=== PATIENT | male | born 1945 | race American Indian/Alaskan Native ===

== ENCOUNTER → 2016-12-14 | Day surgery (SDC) | payer OTHER, MEDICARE ==
[2016-11-28 11:33] VITALS: Ht 179.1 cm; Wt 84.1 kg
[~2016-12-14] VITALS: Ht 179.1 cm; Wt 84.1 kg
[~2016-12-14] MED LIST: 500ML BSS 0.3ML EPI 1:1000PF IRRIG ONE; ACETAMINOPHEN 325 MG TAB PO PRN; AMVISC PLUS 0.8ML SYRINGE INT OCU ONE; ASPEC325 PO; ATOR10TA88 PO; ATROPINE SULFATE 0.1 MG/ML 5ML SYR IV PRN; AcetaZOLAMIDE 250 MG TAB PO SCH; BETAXOLOL HCL 0.25% OP SUSP PER DROP CHARGE OPR SCH; BRIMONIDINE TART 0.2% OP SOLN PER DROP CHARGE ONE; BSS FLUSH ONE; ENDOCOAT 0.85ML SYRINGE INT OCU ONE; EpHEDrine SULFATE INJ 50 MG/ML AMP IV PRN; EpINEphrine INJ 1MG/ML AMP 1 MG/ML AMP ONE; LACTATED RINGER'S 1000ML 500 ML IV SCH; LIDOCAINE 4% OP SOLN DROP CHARGE ONE; LIDOCAINE 4% OP SOLN DROP CHARGE OPR SCH; LIDOCAINE HCL 1% MPF 2 ML VIAL ONE; LOSA1TAB38 PO; MIDAZOLAM HCL 1 MG/ML 2ML VIAL ONE; MIX: 4ML BSS 1ML EPI 1:1000 PF INSTIL ONE; MOXIFLOXACIN OPH SOLN PER DROP CHARGE ONE; OCUCOAT 1 ML SOLN IO ONE; POVIDONE-IODINE OP SOLN 30 ML BTL ONE; PRED1SUS OPR; PRLSR20 PO; PROPARACAINE 0.5% OP SOLN PER DROP CHARGE OPR SCH; TOBRAMYCIN/DEXAMETHASONE OPH OINT PER APPLN CHARGE ONE
--- NOTE | 2016-12-14 08:33 | History & Physical Bridge - [place] ---
H&P Re-Evaluation Bridge Note: I have examined the patient, reviewed the History & Physical and in the interval since the performance of the History & Physical I have noted the following changes of clinical significance: No changes noted
[2016-12-14] MEDS: PHENYLEPHRINE HCL 2.5% OP SOLN PER DROP CHARGE OPR SCH ×2 (08:59→09:04)
[2016-12-14] MEDS: TROPICAMIDE 1% OP SOLN PER DROP CHARGE OPR SCH ×2 (09:00→09:05)
[2016-12-14] MEDS: CYCLOPENTOLATE HCL 1% OP SOLN PER DROP CHARGE OPR SCH ×2 (09:01→09:06)
[2016-12-14] MEDS: MOXIFLOXACIN OPH SOLN PER DROP CHARGE OPR SCH ×2 (09:02→09:12)
--- NOTE | 2016-12-14 10:03 | Discharge Instructions-SurgCtr ---
Discharge Instructions Visit Reason for Visit: Cataract Right Eye Discharge Discharge Diagnosis / Problem: lens implant right eye Discharge Goals Goal(s): Improve function Activity Recommendations Activity Limitations: resume your previous activity Lifting Limitations: no more than 10 pounds Exercise/Sports Limitations: gradually increase as tolerated May Resume Sexual Activity: when tolerated Shower/Bathe: tomorrow Driving or Machine Use: resume 1 day after discharge Anesthesia . Post Anesthesia Instructions: If you have had General Anesthesia or IV Sedation: * Do not drive today. * Resume driving when surgeon permits. * Do not make important decisions or sign legal documents today. * Call surgeon for: 1. Temperature elevations greater than 101 degrees F. 2. Uncontrollable pain. 3. Excessive bleeding. 4. Persistent nausea and vomiting. 5. Medication intolerance (nausea, vomiting or rash). * For nausea and vomiting use only clear liquids such as: tea, soda, bouillon until nausea subsides, then gradually increase diet as tolerated. * If you have any concerns or questions, call your surgeon's office. If physician is unavailable and it is an emergency, call 911 or go to the nearest emergency room. . Instructions / Follow-Up Instructions / Follow-Up ACTIVITY RECOMMENDATIONS: * Light activities. * Mild irritation and blurred vision are common for the first few days. * You may walk outside, read, watch television. * Redness around the white part of the eye is common. MEDICATIONS: Resume previous medications unless instructed otherwise by your surgeon. * Take white Diamox (Acetazolamide) tablet at 1 pm today. Start all eye drops at 1 pm today: * Eye drops (today and tomorrow): Prednisone - one drop in operative eye every 3 hours while awake Ofloxacin - one drop in operative eye every 3 hours while awake SPECIAL CARE INSTRUCTIONS: * Tape plastic shield over eye to sleep at night. Call your doctor at with any concerns or problems. FOLLOW UP VISIT: Follow-up with Dr Rosas at [place] office as scheduled. Diet Recommendations Home Diet: no limitations Procedures Procedures Performed: cataract extraction with lens implant Pending Studies Studies pending at discharge: no Medical Emergencies . Who to Call and When: Medical Emergencies: If at any time you feel your situation is an emergency, please call 911 immediately. . Non-Emergent Contact Non-Emergency issues call your: Test Pilot Call Non-Emergent contact if: your pain is not controlled [phone] . . "Provider Documentation" section prepared by Wilver Rosas.
--- NOTE | 2016-12-14 10:05 | [facility] Operative Report ---
Operative Report 1. PREOPERATIVE DIAGNOSIS: Senile nuclear cataract, right eye. 2. POSTOPERATIVE DIAGNOSIS: Senile nuclear cataract, right eye. 3. PROCEDURE: Phacoemulsification of right cataract with posterior chamber lens implant, type Bausch [employer] Lomb, model Hoya [id number], power +22.0 diopters. ANESTHESIA: Local standby. SURGEON: Dr. Rosas. COMPLICATIONS: None. OPERATING TIME: 10 minutes. 4. OPERATION AND FINDINGS: DESCRIPTION OF PROCEDURE: The right pupil was dilated. The anesthetic was administered using a topical technique. The right eye was prepped and draped. A speculum was placed. A clear corneal incision was formed. The chamber was filled with Amvisc Plus and Endocoat. Epinephrine solution was used. A paracentesis was placed. A capsulorrhexis was performed. The nucleus was hydrodissected. The lens was removed with phacoemulsification. Time was 5.35 seconds. The aspiration unit was used to remove the cortex. The capsule was filled with Amvisc Plus. The lens implant was folded and placed into the capsule. The incision was hydrated. The Amvisc was aspirated. The wound was secure. The chamber was deep. The pupil was round. TobraDex ointment and Vigamox solution were placed. The speculum was removed. The patient was returned to the Recovery Room in stable condition. I attest to the content of the Intraoperative Record and any orders documented therein. Any exceptions are noted below. The scribe's documentation has been prepared in my presence, under my direction and personally reviewed by me in its entirety. I confirm that the note above accurately reflects all work, treatment, procedures, and medical decision making performed by me. I personally scribed for Wilver Rosas M.D. (SUSAN) on 12/14/16 at 10:05. Electronically submitted by Rema Eugene ([email or web address]).
[2016-12-14 10:07] VITALS: TEMP 36.7
--- NOTE | 2016-12-14 10:24 | Anesthesia Progress Nt - [facility] ---
Anesthesia Post Op Note Date & Time Dec 14, 2016 at 10:25 Vital Signs Pain Intensity: 0 Vital Signs Past 12 Hours Date Time Temp Pulse Resp B/P Pulse Ox O2 Delivery O2 Flow Rate FiO2 12/14/16 10:07 36.7 64 16 125/74 97 Room Air 12/14/16 08:52 36.6 69 18 130/83 96 Room Air Notes Mental Status: alert / awake / arousable, participated in evaluation Pt Amnestic to Procedure: Yes Nausea / Vomiting: adequately controlled Pain: adequately controlled Airway Patency, RR, SpO2: stable & adequate BP & HR: stable & adequate Hydration State: stable & adequate Anesthetic Complications: no major complications apparent
[2016-12-14 10:35] VITALS: BP 116/80; PULSE 59; O2SAT 97
== END | disposition home or self-care (01) ==
LOC: X.SURG 08:46
PROVIDERS: ATTEND Specialist
DX: H25.11 Age-related nuclear cataract, right eye (principal); I10 Essential (primary) hypertension

== ENCOUNTER → 2016-12-27 | Outpatient (CLI) | payer OTHER, MEDICARE ==
[~2016-12-27] MED LIST changes: -500ML BSS 0.3ML EPI 1:1000PF IRRIG ONE; -ACETAMINOPHEN 325 MG TAB PO PRN; -AMVISC PLUS 0.8ML SYRINGE INT OCU ONE; -ATROPINE SULFATE 0.1 MG/ML 5ML SYR IV PRN; -AcetaZOLAMIDE 250 MG TAB PO SCH; -BETAXOLOL HCL 0.25% OP SUSP PER DROP CHARGE OPR SCH; -BRIMONIDINE TART 0.2% OP SOLN PER DROP CHARGE ONE; -BSS FLUSH ONE; -ENDOCOAT 0.85ML SYRINGE INT OCU ONE; -EpHEDrine SULFATE INJ 50 MG/ML AMP IV PRN; -EpINEphrine INJ 1MG/ML AMP 1 MG/ML AMP ONE; -LACTATED RINGER'S 1000ML 500 ML IV SCH; -LIDOCAINE 4% OP SOLN DROP CHARGE ONE; -LIDOCAINE 4% OP SOLN DROP CHARGE OPR SCH; -LIDOCAINE HCL 1% MPF 2 ML VIAL ONE; -MIDAZOLAM HCL 1 MG/ML 2ML VIAL ONE; -MIX: 4ML BSS 1ML EPI 1:1000 PF INSTIL ONE; -MOXIFLOXACIN OPH SOLN PER DROP CHARGE ONE; -OCUCOAT 1 ML SOLN IO ONE; -POVIDONE-IODINE OP SOLN 30 ML BTL ONE; -PROPARACAINE 0.5% OP SOLN PER DROP CHARGE OPR SCH; -TOBRAMYCIN/DEXAMETHASONE OPH OINT PER APPLN CHARGE ONE
[2016-12-27 17:53] LABS: BASO % 0.4 %; BASO ABS # 0.04 K/uL (0-0.2); COMPLETE YES; EOS % 2.1 %; HEMATOCRIT 41.1 % (42-52); IG% 0.1 %; LYMPH ABS # 2.06 K/uL (1.2-3.4); MEAN CELL VOLUME 90.9 fL (80-100); MEAN CORPUSCULAR HEMOGLOBIN 30.1 pg (25-34); MEAN CORPUSCULAR HGB CONC 33.1 g/dl (32-36); MEAN PLATELET VOLUME 10.6 fL (7.4-10.4); MONO % 10.1 %; NEUT % 64.3 %; PLATELET COUNT 234 K/uL (130-400); RED BLOOD COUNT 4.52 M/uL (4.7-6.1); WHITE BLOOD COUNT 8.97 K/uL (4.8-10.8)
== END | disposition home or self-care (01) ==
LOC: C.LABMFLN 10:08
PROVIDERS: ATTEND Family Medicine
DX: R51 Headache (principal)

== ENCOUNTER → 2016-12-28 | Day surgery (SDC) | payer OTHER, MEDICARE ==
[2016-12-27 07:47] VITALS: Ht 179.1 cm; Wt 84.1 kg
[~2016-12-28] VITALS: Ht 179.1 cm; Wt 84.1 kg
[~2016-12-28] MED LIST changes: +500ML BSS 0.3ML EPI 1:1000PF IRRIG ONE; +ACETAMINOPHEN 325 MG TAB PO PRN; +AMVISC PLUS 0.8ML SYRINGE INT OCU ONE; +ATROPINE SULFATE 0.1 MG/ML 5ML SYR IV PRN; +AcetaZOLAMIDE 250 MG TAB PO SCH; +BETAXOLOL HCL 0.25% OP SUSP PER DROP CHARGE OPL SCH; +BRIMONIDINE TART 0.2% OP SOLN PER DROP CHARGE ONE; +BSS FLUSH ONE; +ENDOCOAT 0.85ML SYRINGE INT OCU ONE; +EpHEDrine SULFATE INJ 50 MG/ML AMP IV PRN; +EpINEphrine INJ 1MG/ML AMP 1 MG/ML AMP ONE; +LACTATED RINGER'S 1000ML 500 ML IV SCH; +LIDOCAINE 4% OP SOLN DROP CHARGE ONE; +LIDOCAINE 4% OP SOLN DROP CHARGE OPL SCH; +LIDOCAINE HCL 1% MPF 2 ML VIAL ONE; +MIDAZOLAM HCL 1 MG/ML 2ML VIAL ONE; +MIX: 4ML BSS 1ML EPI 1:1000 PF INSTIL ONE; +MOXIFLOXACIN OPH SOLN PER DROP CHARGE ONE; +OCUCOAT 1 ML SOLN IO ONE; +POVIDONE-IODINE OP SOLN 30 ML BTL ONE; +PROPARACAINE 0.5% OP SOLN PER DROP CHARGE OPL SCH; +TOBRAMYCIN/DEXAMETHASONE OPH OINT PER APPLN CHARGE ONE
[2016-12-28] MEDS: PHENYLEPHRINE HCL 2.5% OP SOLN PER DROP CHARGE OPL SCH ×2 (11:24→11:29)
[2016-12-28] MEDS: TROPICAMIDE 1% OP SOLN PER DROP CHARGE OPL SCH ×2 (11:25→11:30)
[2016-12-28] MEDS: CYCLOPENTOLATE HCL 1% OP SOLN PER DROP CHARGE OPL SCH ×2 (11:26→11:31)
[2016-12-28] MEDS: MOXIFLOXACIN OPH SOLN PER DROP CHARGE OPL SCH ×2 (11:27→11:37)
--- NOTE | 2016-12-28 12:33 | Discharge Instructions-SurgCtr ---
Discharge Instructions Visit Reason for Visit: Cataract Left Eye Discharge Discharge Diagnosis / Problem: lens implant left eye Discharge Goals Goal(s): Improve function Activity Recommendations Activity Limitations: resume your previous activity Lifting Limitations: no more than 10 pounds Exercise/Sports Limitations: gradually increase as tolerated May Resume Sexual Activity: when tolerated Shower/Bathe: tomorrow Driving or Machine Use: resume 1 day after discharge Anesthesia . Post Anesthesia Instructions: If you have had General Anesthesia or IV Sedation: * Do not drive today. * Resume driving when surgeon permits. * Do not make important decisions or sign legal documents today. * Call surgeon for: 1. Temperature elevations greater than 101 degrees F. 2. Uncontrollable pain. 3. Excessive bleeding. 4. Persistent nausea and vomiting. 5. Medication intolerance (nausea, vomiting or rash). * For nausea and vomiting use only clear liquids such as: tea, soda, bouillon until nausea subsides, then gradually increase diet as tolerated. * If you have any concerns or questions, call your surgeon's office. If physician is unavailable and it is an emergency, call 911 or go to the nearest emergency room. . Instructions / Follow-Up Instructions / Follow-Up ACTIVITY RECOMMENDATIONS: * Light activities. * Mild irritation and blurred vision are common for the first few days. * You may walk outside, read, watch television. * Redness around the white part of the eye is common. MEDICATIONS: Resume previous medications unless instructed otherwise by your surgeon. * Take white Diamox (Acetazolamide) tablet at 3 pm today. Start all eye drops at 3 pm today: * Eye drops (today and tomorrow): Prednisone - one drop in operative eye every 3 hours while awake Ofloxacin - one drop in operative eye every 3 hours while awake SPECIAL CARE INSTRUCTIONS: * Tape plastic shield over eye to sleep at night. Call your doctor at with any concerns or problems. FOLLOW UP VISIT: Follow-up with Dr Rosas at [place] office as scheduled. Diet Recommendations Home Diet: no limitations Procedures Procedures Performed: cataract extraction with lens implant Pending Studies Studies pending at discharge: no Medical Emergencies . Who to Call and When: Medical Emergencies: If at any time you feel your situation is an emergency, please call 911 immediately. . Non-Emergent Contact Non-Emergency issues call your: [employer] Call Non-Emergent contact if: your pain is not controlled [phone] . . "Provider Documentation" section prepared by Wilver Rosas.
--- NOTE | 2016-12-28 12:34 | [facility] Operative Report ---
Operative Report Date of Service Dec 28, 2016. Operative Report 1. PREOPERATIVE DIAGNOSIS: Senile nuclear cataract, left eye. 2. POSTOPERATIVE DIAGNOSIS: Senile nuclear cataract, left eye. 3. PROCEDURE: Phacoemulsification of left cataract with posterior chamber lens implant, type Bausch & Lomb, model Hoya [id number], power +23.5 diopters. ANESTHESIA: Local standby. SURGEON: Dr. Rosas. COMPLICATIONS: None. OPERATING TIME: 10 minutes. 4. OPERATION AND FINDINGS: DESCRIPTION OF PROCEDURE: The left pupil was dilated. The anesthetic was administered using a topical technique. The left eye was prepped and draped. A speculum was placed. A clear corneal incision was formed. The chamber was filled with Amvisc Plus and Endocoat. Epinephrine solution was used. A paracentesis was placed. A capsulorrhexis was performed. The nucleus was hydrodissected. The lens was removed with phacoemulsification. Time was 5.70 seconds. The aspiration unit was used to remove the cortex. The capsule was filled with Amvisc Plus. The lens implant was folded and placed into the capsule. The incision was hydrated. The Amvisc was aspirated. The wound was secure. The chamber was deep. The pupil was round. TobraDex ointment and Vigamox solution were placed. The speculum was removed. The patient was returned to the Recovery Room in stable condition. I attest to the content of the Intraoperative Record and any orders documented therein. Any exceptions are noted below. The scribe's documentation has been prepared in my presence, under my direction and personally reviewed by me in its entirety. I confirm that the note above accurately reflects all work, treatment, procedures, and medical decision making performed by me. I personally scribed for Wilver Rosas M.D. (SUSAN) on 12/28/16 at 12:34. Electronically submitted by Rema Eugene ([facility]).
[2016-12-28 12:37] VITALS: TEMP 37
[2016-12-28 13:02] VITALS: BP 130/84; PULSE 63; O2SAT 95
--- NOTE | 2016-12-28 13:09 | Anesthesia Progress Nt - [facility] ---
Anesthesia Post Op Note Date & Time Dec 28, 2016 at 13:10 Vital Signs Pain Intensity: 0 Vital Signs Past 12 Hours Date Time Temp Pulse Resp B/P Pulse Ox O2 Delivery O2 Flow Rate FiO2 12/28/16 13:02 63 16 130/84 95 Room Air 12/28/16 12:37 37.0 68 16 120/73 95 Room Air 12/28/16 11:11 36.7 66 18 129/77 96 Room Air Notes Mental Status: alert / awake / arousable, participated in evaluation Pt Amnestic to Procedure: Yes Nausea / Vomiting: adequately controlled Pain: adequately controlled Airway Patency, RR, SpO2: stable & adequate BP & HR: stable & adequate Hydration State: stable & adequate Anesthetic Complications: no major complications apparent
== END | disposition home or self-care (01) ==
LOC: X.SURG 10:50
PROVIDERS: ATTEND Specialist
DX: H25.12 Age-related nuclear cataract, left eye (principal); I10 Essential (primary) hypertension; Z96.659 Presence of unspecified artificial knee joint; K21.9 Gastro-esophageal reflux disease without esophagitis; Z98.890 Other specified postprocedural states

== ENCOUNTER → 2017-09-20 | Outpatient (CLI) | payer OTHER, MEDICARE ==
[~2017-09-20] MED LIST changes: -500ML BSS 0.3ML EPI 1:1000PF IRRIG ONE; -ACETAMINOPHEN 325 MG TAB PO PRN; -AMVISC PLUS 0.8ML SYRINGE INT OCU ONE; +ATOR10TA82 PO; -ATOR10TA88 PO; -ATROPINE SULFATE 0.1 MG/ML 5ML SYR IV PRN; -AcetaZOLAMIDE 250 MG TAB PO SCH; -BETAXOLOL HCL 0.25% OP SUSP PER DROP CHARGE OPL SCH; -BRIMONIDINE TART 0.2% OP SOLN PER DROP CHARGE ONE; -BSS FLUSH ONE; -ENDOCOAT 0.85ML SYRINGE INT OCU ONE; -EpHEDrine SULFATE INJ 50 MG/ML AMP IV PRN; -EpINEphrine INJ 1MG/ML AMP 1 MG/ML AMP ONE; -LACTATED RINGER'S 1000ML 500 ML IV SCH; -LIDOCAINE 4% OP SOLN DROP CHARGE ONE; -LIDOCAINE 4% OP SOLN DROP CHARGE OPL SCH; -LIDOCAINE HCL 1% MPF 2 ML VIAL ONE; -MIDAZOLAM HCL 1 MG/ML 2ML VIAL ONE; -MIX: 4ML BSS 1ML EPI 1:1000 PF INSTIL ONE; -MOXIFLOXACIN OPH SOLN PER DROP CHARGE ONE; -OCUCOAT 1 ML SOLN IO ONE; -POVIDONE-IODINE OP SOLN 30 ML BTL ONE; -PROPARACAINE 0.5% OP SOLN PER DROP CHARGE OPL SCH; -TOBRAMYCIN/DEXAMETHASONE OPH OINT PER APPLN CHARGE ONE
[2017-09-20 12:41] LABS: BASO % 0.4 %; BASO ABS # 0.03 K/uL (0-0.2); COMPLETE YES; IG% 0.2 %; LYMPH % 27.1 %; LYMPH ABS # 2.17 K/uL (1.2-3.4); MEAN CELL VOLUME 93.6 fL (80-100); MEAN CORPUSCULAR HEMOGLOBIN 31.3 pg (25-34); MEAN CORPUSCULAR HGB CONC 33.4 g/dl (32-36); MONO % 11.5 %; NEUT % 56.8 %; PLATELET COUNT 233 K/uL (130-400); WHITE BLOOD COUNT 8.02 K/uL (4.8-10.8)
[2017-09-20 13:04] LABS: ALT/SGPT 18 U/L (12-78); AST/SGOT 15 U/L (15-37); BLOOD UREA NITROGEN 13 mg/dl (7-18); BUN/CREATININE RATIO 14.6 (10-20); CALCIUM 8.4 mg/dl (8.5-10.1); CARBON DIOXIDE 27 mmol/L (21-32); CHLORIDE 106 mmol/L (98-107); CREATININE 0.87 mg/dl (0.60-1.40); GLUCOSE 89 mg/dl (70-99); POTASSIUM 4.1 mmol/L (3.5-5.1); SODIUM 140 mmol/L (136-145)
[2017-09-20 13:15] LABS: ALKALINE PHOSPHATASE 63 U/L (45-117); CHOLESTEROL 182 mg/dl (0-200); HDL CHOLESTEROL 60 mg/dl; LDL CHOLESTEROL CALCULATED 107 mg/dl; TRIGLYCERIDES 74 mg/dl (0-150); VERY LOW DENSITY LIPOPROT CALC 15 mg/dl
== END | disposition home or self-care (01) ==
LOC: C.LABMFLN 08:07
PROVIDERS: ATTEND Family Medicine
DX: I10 Essential (primary) hypertension (principal); E78.5 Hyperlipidemia, unspecified

== ENCOUNTER 2017-11-28 13:21 | Observation (INO) | payer OTHER, MEDICARE ==
[~2017-11-28] VITALS: Ht 177.8 cm; Wt 79.5 kg
--- NOTE | 2017-11-28 13:47 | EMERGENCY ROOM VISIT NOTE ---
History Report prepared by Shira: Sudhir Alfaro Under the Supervision of: Dr. Mervin Arroyo M.D. First contact with patient: 13:32 Chief Complaint: STROKE SYMPTOMS Stated Complaint: MINI STROKE SYMPTOMS History of Present Illness The patient is a 72 year old male who presents to the Emergency Room with complaints of on and off paresthesias starting 3-4 days ago which became constant this morning and were present when he woke up around 0700. The patient states that he has tingling in his right arm, his lips, and his left foot. He additionally states that he feels dizzy like he is going to pass out. He reports that he has blurry vision in his right eye while reading, though after he looks away the vision goes back to normal. The patient denies any shortness of breath, chest pain, and headache. The patient has a history of TIAs and he states that he has hypertension and is on aspirin and losartan. No headache. Source of History: patient Onset: 3-4 days ago worsening today at 0700 Position: arm (right), foot (left), other (lips) Quality: tingling Timing: constant Associated Symptoms: No headache, No chest pain, No SOB Note: Associated symptoms: Blurry vision and dizziness Review of Systems See HPI for pertinent positives and negatives. A total of ten systems were reviewed and were otherwise negative. Past Medical & Surgical Medical Problems: (1) TIA (transient ischemic attack) Social History Smoking Status: Current Some Day Smoker Marital Status: Housing Status: lives with family Occupation Status: retired Current/Historical Medications Scheduled Losartan Potassium (Cozaar), 100 MG PO QAM Omeprazole (Prilosec), 20 MG PO QAM Miscellaneous Medications Aspirin (Aspirin Ec), 325 MG PO Allergies Coded Allergies: No Known Allergies (Verified , 11/28/17) Physical Exam Vital Signs Date Time Temp Pulse Resp B/P (MAP) Pulse Ox O2 Delivery O2 Flow Rate FiO2 11/28/17 14:37 73 16 135/85 97 Room Air 11/28/17 14:00 77 11/28/17 13:24 36.7 81 16 203/100 93 Room Air Physical Exam Physical Exam GENERAL: He is oriented to person, place, and time. He appears well-developed and well-nourished. He does not appear distressed. ____ HENT: Exam performed. Head: Normocephalic and atraumatic. Right Ear: External ear normal. No mastoid tenderness. Left Ear: External ear normal. No mastoid tenderness. Mouth/Throat: The oropharynx is clear and moist. No trismus in the jaw. No dental abscesses or uvula swelling. No oropharyngeal exudate or tonsillar abscesses. ____ EYES: Conjunctivae and EOM are normal. Pupils are equal, round, and reactive to light. Right eye exhibits no discharge. Left eye exhibits no discharge. No scleral icterus. ____ NECK: Normal range of motion. Neck supple. No JVD present. No spinous process tenderness present. No carotid bruit present. No rigidity. No tracheal deviation and normal range of motion present. No Brudzinski's sign and no Kernig 's sign noted. ____ CV: Normal rate, regular rhythm, normal heart sounds and intact distal pulses. There is no peripheral edema. Palpable radial pulses bue. ____ PULM/CHEST: Effort normal and breath sounds normal. No respiratory distress. No stridor. He has no wheezes. He has no rales. Chest Wall: He exhibits no tenderness. ____ ABD: The abdomen is soft. Bowel sounds are normal. He has no distension. No mass is present. There is no tenderness. There is no rebound, no guarding, no Youssef's sign and no tenderness at McBurney's point. Rovsig negative MUSC/SKEL: Normal range of motion. There is no peripheral edema, tenderness or deformity. LYMPH: No cervical adenopathy. ____ NEURO: NIHSS 0. He is alert and oriented to person, place, and time. He has normal strength. No cranial nerve deficit or sensory deficit. Coordination and gait normal. GCS eye subscore is 4. GCS verbal subscore is 5. GCS motor subscore is 6. cerbellar tests wnl. ____ SKIN: Skin is warm and dry. He is not diaphoretic. ____ PSYCH: He has a normal mood and affect. His behavior is normal. Judgment and thought content normal. ____ Medical Decision & Procedures ER Provider Diagnostic Interpretation: Radiology results as stated below per my review and radiologist interpretation: HEAD CT NONCONTRAST CT DOSE: 638.56 mGycm HISTORY: tingling near syncope on and off for 3 days TECHNIQUE: Multiaxial CT images of the head were performed without the use of intravenous contrast. Automated exposure control was utilized for this study. A dose lowering technique was utilized adhering to the principles of ALARA. Comparison: None. Findings: Near complete opacification of the right sphenoid sinus which appears to be chronic. The mastoid air cells are clear. The calvarium and skull base are intact. The ventricles and sulci are within normal limits. There is no mass, hematoma, midline shift, or acute infarct. Impression: No acute intracranial abnormality. Electronically signed by: Wisam Reid M.D. 11/28/2017 2:44 PM Dictated Date/Time: 11/28/2017 2:24 PM CHEST ONE VIEW PORTABLE HISTORY: NEAR SYNCOPE COMPARISON: Chest 12/08/2014. FINDINGS: No focal lung consolidations to suggest pneumonia. No evidence for pulmonary edema. The heart is normal in size. No pleural effusions. No pneumothorax. IMPRESSION: No acute process. Electronically signed by: Wisam Reid M.D. 11/28/2017 2:14 PM Dictated Date/Time: 11/28/2017 2:12 PM Laboratory Results 11/28/17 13:45 Red Blood Count 4.92, Mean Corpuscular Volume 93.7, Mean Corpuscular Hemoglobin 31.9, Mean Corpuscular Hemoglobin Concent 34.1, Mean Platelet Volume 9.6, Neutrophils (%) (Auto) 69.9, Lymphocytes (%) (Auto) 17.4, Monocytes (%) (Auto) 10.6, Eosinophils (%) (Auto) 1.4, Basophils (%) (Auto) 0.6, Neutrophils # (Auto ) 5.85, Lymphocytes # (Auto) 1.46, Monocytes # (Auto) 0.89, Eosinophils # (Auto ) 0.12, Basophils # (Auto) 0.05 11/28/17 13:45 Test 11/28/17 13:45 11/28/17 13:55 White Blood Count 8.38 K/uL (4.8-10.8) Red Blood Count 4.92 M/uL (4.7-6.1) Hemoglobin 15.7 g/dL (14.0-18.0) Hematocrit 46.1 % (42-52) Mean Corpuscular Volume 93.7 fL (80-100) Mean Corpuscular Hemoglobin 31.9 pg (25-34) Mean Corpuscular Hemoglobin Concent 34.1 g/dl (32-36) Platelet Count 267 K/uL (130-400) Mean Platelet Volume 9.6 fL (7.4-10.4) Neutrophils (%) (Auto) 69.9 % Lymphocytes (%) (Auto) 17.4 % Monocytes (%) (Auto) 10.6 % Eosinophils (%) (Auto) 1.4 % Basophils (%) (Auto) 0.6 % Neutrophils # (Auto) 5.85 K/uL (1.4-6.5) Lymphocytes # (Auto) 1.46 K/uL (1.2-3.4) Monocytes # (Auto) 0.89 K/uL (0.11-0.59) Eosinophils # (Auto) 0.12 K/uL (0-0.5) Basophils # (Auto) 0.05 K/uL (0-0.2) RDW Standard Deviation 50.1 fL (36.4-46.3) RDW Coefficient of Variation 14.7 % (11.5-14.5) Immature Granulocyte % (Auto) 0.1 % Immature Granulocyte # (Auto) 0.01 K/uL (0.00-0.02) Prothrombin Time 10.3 SECONDS (9.0-12.0) Prothromb Time International Ratio 1.0 (0.9-1.1) Activated Partial Thromboplast Time 24.3 SECONDS (21.0-31.0) Partial Thromboplastin Ratio 0.9 Anion Gap 7.0 mmol/L (3-11) Est Creatinine Clear Calc Drug Dose 76.0 ml/min Estimated GFR () 98.1 Estimated GFR (Non- 84.6 BUN/Creatinine Ratio 12.4 (10-20) Calcium Level 8.8 mg/dl (8.5-10.1) Total Bilirubin 0.6 mg/dl (0.2-1) Aspartate Amino Transf (AST/SGOT) 17 U/L (15-37) Alanine Aminotransferase (ALT/SGPT) 19 U/L (12-78) Alkaline Phosphatase 77 U/L (45-117) Troponin I < 0.015 ng/ml (0-0.045) Total Protein 7.6 gm/dl (6.4-8.2) Albumin 3.9 gm/dl (3.4-5.0) Globulin 3.7 gm/dl (2.5-4.0) Albumin/Globulin Ratio 1.0 (0.9-2) Laboratory results reviewed by me Medications Administered ECG Indication: other (stroke symptoms) Rate (beats per minute): 69 Rhythm: normal sinus Findings: no acute ischemic change, no ectopy, other ([place], QRS, and QTc intervals within normal limits. No ST elevation or depression) Change: Patient's EKG interpreted by me. ED Course 1335: The patient was evaluated in room A12. A complete history and physical exam was performed. No stroke alert called given the patient's symptoms have been present for the last 3-4 days. 1520: VSS. CT showed no acute infarct. Labs within normal limits, repeat NIHSS of 0. Patient will be admitted for TIA-like symptoms due to his paraesthesias and his on and off presentations of his symptoms. 1527: Discussed the patient's case with Dr. Alden QUILES Hospitalist. The patient will be evaluated for further treatment and disposition. Medical Decision No stroke alert called given the patient's symptoms have been present for the last 3-[address] showed no acute infarct. Labs within normal limits, repeat NIHSS of 0. Patient will be admitted for TIA-like symptoms due to his paraesthesias and his on and off presentations of his symptoms. Medication Reconcilliation Current Medication List: was personally reviewed by me Blood Pressure Screening Patient's blood pressure: Elevated blood pressure Monitored by the hospitalist Consults Time Called: 1520 Consulting Physician: Dr. Alden QUILES Hospitalist Returned Call: 1527 Discussed the patient's case with Dr. Alden QUILES Hospitalist. The patient will be evaluated for further treatment and disposition. Impression Primary Impression: TIA (transient ischemic attack) Scribe Attestation The scribe's documentation has been prepared under my direction and personally reviewed by me in its entirety. I confirm that the note above accurately reflects all work, treatment, procedures, and medical decision making performed by me. The chart was completed utilizing Dragon Speech voice recognition software. Grammatical errors, random word insertions, pronoun errors, and incomplete sentences are an occasional consequence of this system due to software limitations, ambient noise, and hardware issues. Any formal questions or concerns about the content, text, or information contained within the body of this dictation should be directly addressed to the physician for clarification. Departure Information Dispostion Being Evaluated By Hospitalist Referrals Antonieta Pruitt M.D. (PCP) Patient Instructions My [facility]
[2017-11-28 14:03] LABS: BASO % 0.6 %; BASO ABS # 0.05 K/uL (0-0.2); EOS % 1.4 %; EOS ABS # 0.12 K/uL (0-0.5); HEMATOCRIT 46.1 % (42-52); HEMOGLOBIN 15.7 g/dL (14.0-18.0); IG# 0.01 K/uL (0.00-0.02); LYMPH % 17.4 %; LYMPH ABS # 1.46 K/uL (1.2-3.4); MEAN CELL VOLUME 93.7 fL (80-100); MEAN CORPUSCULAR HEMOGLOBIN 31.9 pg (25-34); MEAN CORPUSCULAR HGB CONC 34.1 g/dl (32-36); MEAN PLATELET VOLUME 9.6 fL (7.4-10.4); MONO % 10.6 %; MONO ABS # 0.89 K/uL (0.11-0.59); NEUT % 69.9 %; NEUT ABS # 5.85 K/uL (1.4-6.5); PLATELET COUNT 267 K/uL (130-400); RED CELL DISTRIBUTION WIDTH CV 14.7 % (11.5-14.5); RED CELL DISTRIBUTION WIDTH SD 50.1 fL (36.4-46.3); WHITE BLOOD COUNT 8.38 K/uL (4.8-10.8)
[2017-11-28 14:09] LABS: PTT PATIENT 24.3 SECONDS (21.0-31.0)
--- NOTE | 2017-11-28 14:15 | DIAGNOSTIC IMAGING REPORT ---
CHEST ONE VIEW PORTABLE HISTORY: NEAR SYNCOPE COMPARISON: Chest 12/08/2014. FINDINGS: No focal lung consolidations to suggest pneumonia. No evidence for pulmonary edema. The heart is normal in size. No pleural effusions. No pneumothorax. IMPRESSION: No acute process. Electronically signed by: Wisam Reid M.D. 11/28/2017 2:14 PM Dictated Date/Time: 11/28/2017 2:12 PM
[2017-11-28 14:23] LABS: ALBUMIN 3.9 gm/dl (3.4-5.0); ALT/SGPT 19 U/L (12-78); BLOOD UREA NITROGEN 11 mg/dl (7-18); CALCIUM 8.8 mg/dl (8.5-10.1); CARBON DIOXIDE 25 mmol/L (21-32); CREATININE 0.88 mg/dl (0.60-1.40); GLUCOSE 90 mg/dl (70-99); POTASSIUM 4.1 mmol/L (3.5-5.1); SODIUM 141 mmol/L (136-145)
[2017-11-28 14:28] LABS: ALKALINE PHOSPHATASE 77 U/L (45-117); AST/SGOT 17 U/L (15-37); TOTAL PROTEIN 7.6 gm/dl (6.4-8.2)
--- NOTE | 2017-11-28 14:45 | DIAGNOSTIC IMAGING REPORT ---
HEAD CT NONCONTRAST CT DOSE: 638.56 mGycm HISTORY: tingling near syncope on and off for 3 days TECHNIQUE: Multiaxial CT images of the head were performed without the use of intravenous contrast. Automated exposure control was utilized for this study. A dose lowering technique was utilized adhering to the principles of ALARA. Comparison: None. Findings: Near complete opacification of the right sphenoid sinus which appears to be chronic. The mastoid air cells are clear. The calvarium and skull base are intact. The ventricles and sulci are within normal limits. There is no mass, hematoma, midline shift, or acute infarct. Impression: No acute intracranial abnormality. Electronically signed by: Wisam Reid M.D. 11/28/2017 2:44 PM Dictated Date/Time: 11/28/2017 2:24 PM
[2017-11-28] MEDS ORDERED: ASPI325T39 PO (14:53)
[2017-11-28] MEDS ORDERED: ACETAMINOPHEN 325 MG TAB PO PRN (15:45)
[2017-11-28] MEDS ORDERED: POLYETHYLENE (MIRALAX) 17 GM PACK PO PRN (15:45)
[2017-11-28] MEDS ORDERED: PHARMACIST DISCHARGE MED REC CONSULT PRN (15:45)
[2017-11-28] MEDS ORDERED: MAGNESIUM HYDROXIDE SUSP 30 ML UDC PO PRN (15:45)
[2017-11-28] MEDS ORDERED: ALUMINUM/MAGNESIUM/SIMETH (MAALOX MAX) 30 ML UDC PO PRN (15:45)
[2017-11-28] MEDS ORDERED: ONDANSETRON INJ 2 MG/ML 2 ML VIAL IV PRN (15:45)
[2017-11-28] MEDS ORDERED: IV FLUIDS COMPLETED PRN (16:15)
[2017-11-28] MEDS ORDERED: CLOPIDOGREL BISULFATE 75 MG TAB ONE (16:22)
--- NOTE | 2017-11-28 16:29 | History and Physical ---
History & Physical Date & Time of Service: Nov 28, 2017 at 15:56 Chief Complaint: Mini Stroke Symptoms Primary Care Physician: Antonieta Pruitt M.D. History of Present Illness Source: patient 72 y/o M Hx HTN, HPL, GERD, distant Hx of TIA. Pt had onset of intermittent L face numbness and a heavy feeling in his L arm. He states that he had identical symptoms when he was diagnosed with a TIA several years ago. He also c /o feeling intermittently dizzy. The pt denies RON, CP, SOB, N/V, fevers. On arrival to the ER, subjective signs are limited to L facial weakness. Past Medical/Surgical History 1) History of TIA 2) HTN 3) HPL - not treated currently due to statin intolerance 4) GERD Family History No history of CVA or heart disease in family Social History Smoking Status: Current Some Day Smoker Immunizations History of Influenza Vaccine: N/A History of Tetanus Vaccine?: Unknown History of Pneumococcal: Unknown History of Hepatitis B Vaccine: Unknown Multi-Drug Resistant Organisms History of MDRO: No Allergies Coded Allergies: No Known Allergies (Verified , 11/28/17) Home Medications Scheduled Losartan Potassium (Cozaar), 100 MG PO QAM Omeprazole (Prilosec), 20 MG PO QAM Miscellaneous Medications Aspirin (Aspirin Ec), 325 MG PO Review of Systems Constitutional: No fever, No chills, No sweats Eyes: No worsening of vision ENT: No hearing loss, No unusual epistaxis, No nasal symptoms Respiratory: No cough, No sputum, No wheezing Cardiovascular: No chest pain Abdomen: No pain, No nausea, No vomiting Musculoskeletal: No joint pain Genitourinary - Male: No hematuria, No dysuria Neurologic: + weakness, + numbness/tingling, + problem reported (facial paresthesias, R arm weakness or heaviness as noted - intemittent dizziness) Psychiatric: No depression symptoms Endocrine: No fatigue Hematologic / Lymphatic: No abnormal bleeding/bruising Integumentary: No rash Allergic / Immunologic: No environmental allergies Physical Exam Vital Signs Date Time Temp Pulse Resp B/P (MAP) Pulse Ox O2 Delivery O2 Flow Rate FiO2 11/28/17 14:37 73 16 135/85 97 Room Air 11/28/17 14:00 77 11/28/17 13:24 36.7 81 16 203/100 93 Room Air General Appearance: WD/WN, no apparent distress Head: normocephalic Eyes: normal inspection ENT: normal ENT inspection, pharynx normal Neck: supple, no JVD Respiratory/Chest: chest non-tender, lungs clear Cardiovascular: regular rate, rhythm, no edema, no gallop Abdomen/GI: normal bowel sounds, non tender, soft Back: normal inspection, no CVA tenderness Extremities/Musculoskelatal: normal inspection, no calf tenderness, normal capillary refill Neurologic/Psych: oriented x 3, + pertinent finding (There is L facial weakness limited to the lower face without periorbotal weakness. There is no pronator drift or motor weakness in the upper or lower extremities. There is no numbness or coordination deficits. ) Skin: normal color Diagnostics Laboratory Results Results Past 24 Hours Test 11/28/17 13:45 11/28/17 15:41 Range/Units White Blood Count 8.38 4.8-10.8 K/uL Red Blood Count 4.92 4.7-6.1 M/uL Hemoglobin 15.7 14.0-18.0 g/dL Hematocrit 46.1 42-52 % Mean Corpuscular Volume 93.7 80-100 fL Mean Corpuscular Hemoglobin 31.9 25-34 pg Mean Corpuscular Hemoglobin Concent 34.1 32-36 g/dl Platelet Count 267 130-400 K/uL Mean Platelet Volume 9.6 7.4-10.4 fL Neutrophils (%) (Auto) 69.9 % Lymphocytes (%) (Auto) 17.4 % Monocytes (%) (Auto) 10.6 % Eosinophils (%) (Auto) 1.4 % Basophils (%) (Auto) 0.6 % Neutrophils # (Auto) 5.85 1.4-6.5 K/uL Lymphocytes # (Auto) 1.46 1.2-3.4 K/uL Monocytes # (Auto) 0.89 0.11-0.59 K/uL Eosinophils # (Auto) 0.12 0-0.5 K/uL Basophils # (Auto) 0.05 0-0.2 K/uL RDW Standard Deviation 50.1 36.4-46.3 fL RDW Coefficient of Variation 14.7 11.5-14.5 % Immature Granulocyte % (Auto) 0.1 % Immature Granulocyte # (Auto) 0.01 0.00-0.02 K/uL Prothrombin Time 10.3 9.0-12.0 SECONDS Prothromb Time International Ratio 1.0 0.9-1.1 Activated Partial Thromboplast Time 24.3 21.0-31.0 SECONDS Partial Thromboplastin Ratio 0.9 Sodium Level 141 136-145 mmol/L Potassium Level 4.1 3.5-5.1 mmol/L Chloride Level 108 98-107 mmol/L Carbon Dioxide Level 25 21-32 mmol/L Anion Gap 7.0 3-11 mmol/L Blood Urea Nitrogen 11 7-18 mg/dl Creatinine 0.88 0.60-1.40 mg/dl Est Creatinine Clear Calc Drug Dose 76.0 ml/min Estimated GFR () 98.1 Estimated GFR (Non- 84.6 BUN/Creatinine Ratio 12.4 10-20 Random Glucose 90 70-99 mg/dl Calcium Level 8.8 8.5-10.1 mg/dl Total Bilirubin 0.6 0.2-1 mg/dl Aspartate Amino Transf (AST/SGOT) 17 15-37 U/L Alanine Aminotransferase (ALT/SGPT) 19 12-78 U/L Alkaline Phosphatase 77 45-117 U/L Troponin I < 0.015 0-0.045 ng/ml Total Protein 7.6 6.4-8.2 gm/dl Albumin 3.9 3.4-5.0 gm/dl Globulin 3.7 2.5-4.0 gm/dl Albumin/Globulin Ratio 1.0 0.9-[address] head: No acute findings Normal EKG Impression Assessment and Plan 72 y/o M Hx HTN, HPL, GERD, distant Hx of TIA. Pt had onset of intermittent L face numbness and a heavy feeling in his L arm. He states that he had identical symptoms when he was diagnosed with a TIA several years ago. He also c /o feeling intermittently dizzy. The pt denies RON, CP, SOB, N/V, fevers. On arrival to the ER, subjective signs are limited to L facial weakness. 1) TIA - pt is assigned to telemetry for monitoring and neurochecks. We will add Plavix to his current meds as L facial weakness is ongoing. He will be placed on a low dose of Lipitor - previously he has not tolerated statins which have induced cramping after a few weeks use. We have held his antihypertensive. As the distribution of his symptoms is unusual, we will check a Lyme titer. He does have a cabin in the [facility] and states that he had a Lyme test this past summer which was negative. An MRI/MRA are pending. 2) HTN - Losartan held 3) Gerd - cont PPi Full code - Lovenox prophylaxis - total time for this admit including review of labs, meds, imaging, EKG, records - discussion with pt, , ER attending - 35 min Level of Care Telemetry Resuscitation Status FULL RESUSCITATION VTE Prophylaxis VTE Risk Assessment Done? Y/N: Yes Risk Level: Low Given or contraindicated: Enoxaparin (Lovenox)SQ
[2017-11-28 16:59] VITALS: O2SAT 97; Ht 177.8 cm; Wt 79.5 kg
[2017-11-28] MEDS ORDERED: CLOPIDOGREL BISULFATE 75 MG TAB PO ONE (17:13)
[2017-11-28 19:54] VITALS: BP_SYST 87; PULSE 70; TEMP 37.1; O2SAT 94
[2017-11-28] MEDS ORDERED: ATORVASTATIN 20 MG TAB PO SCH (21:00)
[2017-11-28] MEDS ORDERED: ENOXAPARIN 40 MG/0.4 ML SYR SC SCH (21:00)
[2017-11-28] MEDS ORDERED: GADAVIST IV PRN (22:45)
--- NOTE | 2017-11-28 23:00 | DIAGNOSTIC IMAGING REPORT ---
MRI OF THE BRAIN WITHOUT CONTRAST CLINICAL HISTORY: Stroke. Tingling. Near syncopal episodes. COMPARISON STUDY: Head CT performed earlier today. TECHNIQUE: Utilizing a 1.5 Makenzie magnet and dedicated coil, multiplanar, multiecho imaging of the brain was performed without IV contrast. FINDINGS: There are no foci of restricted diffusion. No acute intracranial hemorrhage, midline shift or mass effect is present. Mild to moderate atrophy is noted. Ventricular system is normal. Basilar cisterns are patent. There are no extra-axial collections. Flow-voids for the major intracranial vessels are present. There is no intracranial mass on this unenhanced exam. Moderate white matter periventricular T2 hyperintensity suggests mild small vessel disease. Orbits and sinuses are unremarkable with exception of mild mucosal thickening of the right sphenoid sinus. IMPRESSION: 1. No acute intracranial findings. 2. Mild small vessel disease and atrophy. Electronically signed by: Chaitanya Trimble M.D. 11/28/2017 10:59 PM Dictated Date/Time: 11/28/2017 10:55 PM
--- NOTE | 2017-11-28 23:07 | DIAGNOSTIC IMAGING REPORT ---
MRA OF THE INTRACRANIAL CIRCULATION WITHOUT CONTRAST CLINICAL HISTORY: Stroke. Near syncopal episodes. COMPARISON STUDY: None. TECHNIQUE: Utilizing a 1.5 Makenzie magnet and 3-D [id number] technique, unenhanced MRA of the intracranial circulation was obtained. FINDINGS: The bilateral M1, M2, A1 and A2 segments are patent. There is no intracranial aneurysm or abrupt vessel cut off. Posterior circulation is intact. Left vertebral artery is dominant. There is no evidence for dissection within the major intracranial vessels. There is mild intracranial vascular irregularity likely due to atherosclerosis. IMPRESSION: Unremarkable MRA of the intracranial circulation for age. Electronically signed by: Chaitanya Trimble M.D. 11/28/2017 11:06 PM Dictated Date/Time: 11/28/2017 11:03 PM
--- NOTE | 2017-11-28 23:12 | DIAGNOSTIC IMAGING REPORT ---
MRA OF THE NECK WITH AND WITHOUT CONTRAST CLINICAL HISTORY: Stroke. Near syncopal episodes. COMPARISON STUDY: None. TECHNIQUE: Unenhanced and contrast-enhanced MRA of the neck was performed. Injection of 8 mL of Gadavist IV was uneventful. NASCET criteria were utilized to estimate the degree of carotid stenosis. FINDINGS: Post contrast images are slightly compromised due to difficulty with bolus timing. However, there is no significant stenosis within the bilateral common carotid, internal carotid or vertebral arteries. There is mild plaque within the proximal right internal carotid artery without hemodynamically significant stenosis. The left vertebral artery is dominant and patent. There is no evidence for dissection within the major vessels of the neck. IMPRESSION: 1. Study mildly compromised due to difficulty with bolus timing. However, no hemodynamically significant stenosis within the major vessels of the neck. 2. Mild atherosclerotic plaque within the proximal right internal carotid artery without significant stenosis. Electronically signed by: Chaitanya Trimble M.D. 11/28/2017 11:11 PM Dictated Date/Time: 11/28/2017 11:06 PM
[2017-11-28 23:17] VITALS: BP 129/82; PULSE 51; TEMP 36.6; O2SAT 95
[2017-11-29 03:42] VITALS: BP 147/87; PULSE 61; TEMP 36.4; O2SAT 98
[2017-11-29 05:52] LABS: BASO % 0.4 %; BASO ABS # 0.03 K/uL (0-0.2); EOS % 4.4 %; HEMATOCRIT 42.1 % (42-52); HEMOGLOBIN 14.2 g/dL (14.0-18.0); IG# 0.01 K/uL (0.00-0.02); LYMPH % 31.9 %; LYMPH ABS # 2.16 K/uL (1.2-3.4); MEAN CELL VOLUME 94.2 fL (80-100); MEAN CORPUSCULAR HEMOGLOBIN 31.8 pg (25-34); MEAN CORPUSCULAR HGB CONC 33.7 g/dl (32-36); MEAN PLATELET VOLUME 9.3 fL (7.4-10.4); MONO % 11.1 %; MONO ABS # 0.75 K/uL (0.11-0.59); NEUT % 52.1 %; NEUT ABS # 3.53 K/uL (1.4-6.5); PLATELET COUNT 217 K/uL (130-400); RED CELL DISTRIBUTION WIDTH CV 14.9 % (11.5-14.5); RED CELL DISTRIBUTION WIDTH SD 51.2 fL (36.4-46.3); WHITE BLOOD COUNT 6.78 K/uL (4.8-10.8)
[2017-11-29 06:27] LABS: CALCIUM 8.3 mg/dl (8.5-10.1); CREATININE 0.85 mg/dl (0.60-1.40)
[2017-11-29 07:01] LABS: HEMOGLOBIN A1C 5.4 % (4.5-5.6)
[2017-11-29 07:05] VITALS: BP 142/85; PULSE 59; TEMP 36.5; O2SAT 95
[2017-11-29 08:30] VITALS: O2SAT 95
[2017-11-29] MEDS ORDERED: ASPIRIN 81 MG ECTAB PO SCH (09:00)
[2017-11-29] MEDS ORDERED: PANTOprazole SOD 40 MG TAB PO SCH (09:00)
[2017-11-29] MEDS ORDERED: CLOPIDOGREL BISULFATE 75 MG TAB PO SCH (09:00)
--- NOTE | 2017-11-29 10:50 | Discharge Instructions ---
Discharge Instructions Date of Service Nov 29, 2017. Admission Reason for Admission: Paresthesias of Left face and foot Discharge Discharge Diagnosis / Problem: Paresthesias of left face and foot-NOT TIA or CVA Discharge Goals Goal(s): Improve disease control, Diagnostic testing, Therapeutic intervention Activity Recommendations Activity Limitations: resume your previous activity Lifting Limitations: none Exercise/Sports Limitations: none Shower/Bathe: no limitations Driving or Machine Use: no limitations . Instructions / Follow-Up Instructions / Follow-Up You were admitted for numbness of the left side of your face and left foot. This is partially resolved, but all of your testing shows that you DID NOT have a stroke. This is NOT a TIA (mini stroke) either. You may have Lyme disease and the test for this is still pending at the time of discharge-this should be followed up on by your PCP after discharge. Please continue all the same medications at home as before. Current Hospital Diet Patient's current hospital diet: AHA Diet (Heart Healthy) Discharge Diet Recommended Diet: AHA Diet (Heart Healthy) Procedures Procedures Performed: MRI Brain MRA Head and Neck Chest xray Head CT Pending Studies Studies pending at discharge: yes List of pending studies: Lyme Disease titer B12 level Laboratory Results Hemoglobin A1c Test 11/28/17 13:55 Range/Units Estimated Average Glucose 108 mg/dl Hemoglobin A1c 5.4 4.5-5.6 % Lipid Panel Test 11/29/17 05:19 Range/Units Triglycerides Level 103 0-150 mg/dl Cholesterol Level 164 0-200 mg/dl HDL Cholesterol 46 mg/dl Cholesterol/HDL Ratio 3.6 LDL Cholesterol, Calculated 97 mg/dl Medical Emergencies . Who to Call and When: Medical Emergencies: If at any time you feel your situation is an emergency, please call 911 immediately. . Non-Emergent Contact Non-Emergency issues call your: Primary Care Provider Call Non-Emergent contact if: you have a fever, temperature is above 100.5, you have any medication questions your symptoms worsen, or for any other acute concerns. . . "Provider Documentation" section prepared by Susanne Cardona. . VTE Core Measure Inpt VTE Proph given/why not?: Enoxaparin (Lovenox)SQ
--- NOTE | 2017-11-29 12:22 | Neurology Consultation ---
Neurology Consultation Date of Consultation: Nov 29, 2017. Attending Physician: Susanne Cardona MD Primary Care Physician: Antonieta Pruitt M.D. Reason for Consultation: Consultation for TIA/strokelike symptoms History of Present Illness Source: patient, hospital records This is a 72-year-old male who presents due to week of left-sided facial tingling. He reports that yesterday it got very severe. He reports that it's been intermittent over the last week. He is also noted intermittent left foot numbness in association and right arm tingling/pain. He denies any weakness. Denies any sudden visual changes. Denies any trouble with speech or swallowing. He also felt mildly lightheaded intermittently over the last week. He denied any neck symptoms or neck pain. Denies any headaches or history of migraine headaches. Denies any issues with his gait or walking. Denies any illnesses or fevers. Denies any history of seizures. Denies any major head injuries or concussions. No loss of consciousness. Patient reports a history of a similar event 18 years ago which she was seen at [facility] and was diagnosed with possible TIA. He reports that it occurred after an extremely stressful event at work. He reports that he had similar tingling of the left side of his face and a feeling of his right arm not being right. Patient has been taking a daily aspirin since then. Patient has noted intermittent right eye blurriness for the last 2 weeks as well and has an upcoming ophthalmology appointment. He reports baseline decreased hearing with hearing aids. Total cholesterol 164, LDL 97, HDL 46, triglycerides 103. Hemoglobin A1c 5.4 MRI of the brain report and images were reviewed by myself and completely normal. There was no signs of past strokes or small vessel ischemic disease. Brain overall appeared very healthy for age. MRA of the head and neck was unremarkable. Mild atherosclerosis The patient reports that he is mostly back to his baseline this morning but still reports some tingling around his lips bilaterally. Past Medical/Surgical History Hypertension, dyslipidemia, lumbar stenosis status post lumbar fusion Family History Father with ALS Social History Patient is normally independent in his activities of daily living. Marital Status: Housing Status: lives with family Occupation Status: retired Allergies Coded Allergies: No Known Allergies (Verified , 11/28/17) Current Inpatient Medications Current Inpatient Medications Medications (Trade) Dose Ordered Sig/Zeenat Route Start Time Stop Time Status Last Admin Dose Admin Pantoprazole Sodium (Protonix Tab) 40 mg QAM PO 11/29/17 09:00 12/29/17 08:59 11/29/17 09:03 40 MG Atorvastatin Calcium (Lipitor Tab) 10 mg HS PO 11/28/17 21:00 12/28/17 20:59 11/28/17 22:35 10 MG Aspirin (Ecotrin Tab) 81 mg QAM PO 11/29/17 09:00 12/29/17 08:59 11/29/17 09:02 81 MG Clopidogrel Bisulfate (plAVix TAB) 75 mg QAM PO 11/29/17 09:00 12/29/17 08:59 11/29/17 09:03 75 MG Enoxaparin Sodium (Lovenox Inj) 40 mg Q24H SC 11/28/17 21:00 12/28/17 20:59 11/28/17 22:36 40 MG Acetaminophen (Tylenol Tab) 650 mg Q4H PRN PO 11/28/17 15:45 12/28/17 15:44 Al Hydrox/Mg Hydrox/Simethicone (Maalox Max Susp) 15 ml Q4H PRN PO 11/28/17 15:45 12/28/17 15:44 Magnesium Hydroxide (Milk Of Magnesia Susp) 30 ml Q12H PRN PO 11/28/17 15:45 12/28/17 15:44 Ondansetron HCl (Zofran Inj) 4 mg Q6H PRN IV 11/28/17 15:45 12/28/17 15:44 Polyethylene (Miralax Powder Packet) 17 gm DAILY PRN PO 11/28/17 15:45 12/28/17 15:44 Miscellaneous (Iv Fluids Completed) 1 ea PRN PRN N/A 11/28/17 16:15 11/28/18 16:14 Gadobutrol (Gadavist) 8 mmol UD PRN IV 11/28/17 22:45 12/02/17 22:44 Review of Systems Complete review of systems otherwise negative except for the above noted in history of present illness Physical Exam Vital Signs (Past 24 Hrs): Date Time Temp Pulse Resp B/P (MAP) Pulse Ox O2 Delivery O2 Flow Rate FiO2 11/29/17 08:30 95 Room Air 11/29/17 07:05 36.5 59 20 142/85 (104) 95 Room Air 11/29/17 04:00 Room Air 11/29/17 03:42 36.4 61 18 147/87 (107) 98 Room Air 11/29/17 00:00 Room Air 11/28/17 23:17 36.6 51 18 129/82 (98) 95 Room Air 11/28/17 20:22 Room Air 11/28/17 19:54 37.1 70 20 87/ (29) 94 Room Air 11/28/17 16:59 69 18 151/88 97 Room Air 11/28/17 16:59 97 Room Air 11/28/17 16:04 66 18 139/99 97 Room Air 11/28/17 14:37 73 16 135/85 97 Room Air 11/28/17 14:00 77 11/28/17 13:24 36.7 81 16 203/100 93 Room Air Gen.: Patient is alert and sitting in bed, in no acute distress. HEENT: Normocephalic /atraumatic, no scleral icterus Heart: Regular rate and rhythm Extremities: No gross deformities or rashes noted Neurological examination: Mental status: Patient is alert and oriented x3. Attention and concentration normal for the situation. Good fund of knowledge. Remote and recent memory intact. Speech is fluent without any dysarthria or aphasia noted Cranial nerve: Funduscopic examination was unremarkable. No papilledema. Pupils equally round and reactive to light. Extraocular muscles intact without nystagmus. No facial asymmetry noted. Facial sensation intact. Tongue is midline. Good palatal elevation. Good shoulder shrug bilaterally. Hearing grossly intact to voice. Strength: 5/5 both proximal and distally in all extremities. There is no arm drift. Tone is normal. Sensation: Grossly intact to light touch in all extremities. Deep tendon reflexes: +1 in bilateral biceps, brachioradialis and patellar. Toes were downgoing to plantar stimulation Coordination: Patient had good finger to nose without dysmetria Station within the bed was normal Laboratory Results Past 24 Hours: 11/29/17 05:19 Red Blood Count 4.47, Mean Corpuscular Volume 94.2, Mean Corpuscular Hemoglobin 31.8, Mean Corpuscular Hemoglobin Concent 33.7, Mean Platelet Volume 9.3, Neutrophils (%) (Auto) 52.1, Lymphocytes (%) (Auto) 31.9, Monocytes (%) (Auto) 11.1, Eosinophils (%) (Auto) 4.4, Basophils (%) (Auto) 0.4, Neutrophils # (Auto ) 3.53, Lymphocytes # (Auto) 2.16, Monocytes # (Auto) 0.75, Eosinophils # (Auto ) 0.30, Basophils # (Auto) 0.03 11/29/17 05:19 Test 11/28/17 13:45 11/28/17 13:55 11/28/17 14:05 11/28/17 18:40 Prothrombin Time 10.3 SECONDS (9.0-12.0) Prothromb Time International Ratio 1.0 (0.9-1.1) Activated Partial Thromboplast Time 24.3 SECONDS (21.0-31.0) Partial Thromboplastin Ratio 0.9 Total Bilirubin 0.6 mg/dl (0.2-1) Aspartate Amino Transf (AST/SGOT) 17 U/L (15-37) Alanine Aminotransferase (ALT/SGPT) 19 U/L (12-78) Alkaline Phosphatase 77 U/L (45-117) Troponin I < 0.015 ng/ml (0-0.045) Total Protein 7.6 gm/dl (6.4-8.2) Albumin 3.9 gm/dl (3.4-5.0) Globulin 3.7 gm/dl (2.5-4.0) Albumin/Globulin Ratio 1.0 (0.9-2) Estimated Average Glucose 108 mg/dl Hemoglobin A1c 5.4 % (4.5-5.6) Bedside Glucose 80 mg/dl (70-99) Urine Color YELLOW Urine Appearance CLEAR (CLEAR) Urine pH 5.0 (4.5-7.5) Urine Specific [place] 1.016 (1.000-1.030) Urine Protein NEG (NEG) Urine Glucose (UA) NEG (NEG) Urine Ketones NEG (NEG) Urine Occult Blood NEG (NEG) Urine Nitrite NEG (NEG) Urine Bilirubin NEG (NEG) Urine Urobilinogen NEG (NEG) Urine Leukocyte Esterase NEG (NEG) Test 11/29/17 05:19 11/29/17 09:42 11/29/17 10:53 White Blood Count 6.78 K/uL (4.8-10.8) Red Blood Count 4.47 M/uL (4.7-6.1) Hemoglobin 14.2 g/dL (14.0-18.0) Hematocrit 42.1 % (42-52) Mean Corpuscular Volume 94.2 fL (80-100) Mean Corpuscular Hemoglobin 31.8 pg (25-34) Mean Corpuscular Hemoglobin Concent 33.7 g/dl (32-36) Platelet Count 217 K/uL (130-400) Mean Platelet Volume 9.3 fL (7.4-10.4) Neutrophils (%) (Auto) 52.1 % Lymphocytes (%) (Auto) 31.9 % Monocytes (%) (Auto) 11.1 % Eosinophils (%) (Auto) 4.4 % Basophils (%) (Auto) 0.4 % Neutrophils # (Auto) 3.53 K/uL (1.4-6.5) Lymphocytes # (Auto) 2.16 K/uL (1.2-3.4) Monocytes # (Auto) 0.75 K/uL (0.11-0.59) Eosinophils # (Auto) 0.30 K/uL (0-0.5) Basophils # (Auto) 0.03 K/uL (0-0.2) RDW Standard Deviation 51.2 fL (36.4-46.3) RDW Coefficient of Variation 14.9 % (11.5-14.5) Immature Granulocyte % (Auto) 0.1 % Immature Granulocyte # (Auto) 0.01 K/uL (0.00-0.02) Anion Gap 4.0 mmol/L (3-11) Est Creatinine Clear Calc Drug Dose 78.7 ml/min Estimated GFR () 99.5 Estimated GFR (Non- 85.8 BUN/Creatinine Ratio 13.4 (10-20) Calcium Level 8.3 mg/dl (8.5-10.1) Triglycerides Level 103 mg/dl (0-150) Cholesterol Level 164 mg/dl (0-200) HDL Cholesterol 46 mg/dl LDL Cholesterol, Calculated 97 mg/dl VLDL Cholesterol, Calculated 21 mg/dl Cholesterol/HDL Ratio 3.6 Lyme Disease IgG Antibody NEG (NEG) Lyme Disease IgM Antibody NEG (NEG) Vitamin B12 Level 294 pg/mL (211-911) Imaging As noted above in history of present illness Impression This is a 72-year-old male who has had tingling of the left lower face, feeling of his right arm not quite being right with tingling sensation and pain, and left foot numbness intermittently for the past week. MRI of the brain is normal with no signs of ischemic changes or acute stroke. Overall it is highly unlikely that the patient's symptoms represent a TIA or stroke, considering that they've been occurring for a week without any ischemic changes on MRI. Potential causes for his symptoms could include nonspecific viral exposure, focal seizures, or anxiety/stress. Unlikely to be migraine related as the patient has no history of migraines. Plan Continue aspirin as before. I do not think the patient needs addition of Plavix since his symptoms are unlikely to be vascular related. Agree with checking Lyme to rule out other causes for paresthesias I will set him up for an outpatient EEG for further evaluation of possible seizure etiology and the patient follow-up in neurology clinic for reevaluation as an outpatient. Thank you for allowing me to participate in this patient's care. If there is any questions or concerns, feel free to call/ page me
[2017-11-29 13:19] VITALS: BP 142/85; PULSE 59; TEMP 36.5; O2SAT 95
--- NOTE | 2017-11-30 23:28 | Discharge Summary ---
Discharge Summary Date of Service Nov 29, 2017. Discharge Summary Admission Date: Nov 28, 2017 at 15:53 Discharge Date: Nov 29, 2017 Discharge Disposition: Home Principal Diagnosis: Paresthesias of face and foot Problems/Secondary Diagnoses: Vitamin B12 deficiency HTN HPL GERD Suspected remote h/o TIA Immunizations: Have You Had Influenza Vaccine: N/A History of Tetanus Vaccine?: Unknown History of Pneumococcal: Unknown History of Hepatitis B Vaccine: Unknown Procedures: MRI Brain MRA Head and Neck CT Head CXR Consultations: Neurology Medication Reconciliation Continued Medications: Aspirin (Aspirin Ec) 325 Mg Tab 325 MG PO Losartan Potassium (Cozaar) 100 Mg Tab 100 MG PO QAM, TAB Omeprazole (Prilosec) 20 Mg Capcr 20 MG PO QAM, CAP Discharge Exam Pt has some persistent left perioral tingling, but left foot tingling is resolved. No Headache, no weakness, no chest pain, no SOB. Otherwise feels very well, no complaints. Reviewed all tests with him. Discussed case with Neurology. Review of Systems: Constitutional: No fever Eyes: No worsening of vision ENT: No problem reported Respiratory: No shortness of breath Cardiovascular: No chest pain Abdomen: No pain, No nausea, No vomiting Musculoskeletal: No problem reported Genitourinary - Male: No problem reported Neurologic: + numbness/tingling, No weakness, No vertigo Psychiatric: No problem reported Endocrine: No problem reported Hematologic / Lymphatic: No problem reported Integumentary: No problem reported Physical Exam: General Appearance: WD/WN, no apparent distress Eyes: normal inspection, PERRL, EOMI, sclerae normal ENT: hearing grossly normal, pharynx normal Neck: supple, no adenopathy, thyroid normal, no JVD, no carotid bruits, trachea midline Respiratory/Chest: chest non-tender, lungs clear, normal breath sounds, no respiratory distress, no accessory muscle use Cardiovascular: regular rate, rhythm, no edema, no gallop, no JVD, no murmur , normal peripheral pulses Abdomen / GI: normal bowel sounds, non tender, soft, no organomegaly, no pulsatile mass Extremities: normal inspection, no calf tenderness, normal capillary refill , no pedal edema, normal range of motion Neurologic/Psychiatric: welfare analyst II-XII nml as tested, no motor/sensory deficits (and normal finger to nose, rapid alternating hands, heel to toe, neg pronator drift), alert, normal mood/affect, normal reflexes, oriented x 3 Skin: normal color, warm/dry, no rash Lymphatic: no adenopathy Hospital Course This patient is a 72 y/o M Hx HTN, HPL, GERD, distant Hx of TIA. Pt had onset of intermittent L face numbness and a heavy feeling in his L arm, as well as some tingling in his left foot. He states that he had identical symptoms when he was diagnosed with a TIA many years ago. He also c/o feeling intermittently dizzy. The pt denies RON, CP, SOB, N/V, fevers. On arrival to the ER, subjective signs are limited to L facial tingling. He reports the symptoms have been coming and going for the last 1-2 weeks. He had a normal workup for stroke-all imaging testing was negative for ischemia or abnormal vasculature. He had a negative Lyme test, but interestingly his B12 level came back low AFTER DISCHARGE at 294 and should be treated by his PCP if so inclined. The B12 deficiency could account for his symptoms. Neurology did also recommend a routine outpatient EEG to r/o focal seizures. He can be continued on his usual ASA, losartan on discharge. He does not require a statin drug at this time and has not tolerated them well in the past anyway. Stable for discharge to home in good condition. Total Time Spent: Greater than 30 minutes This includes examination of the patient, discharge planning, medication reconciliation, and communication with other providers. Discharge Instructions Please refer to the electronic Patient Visit Report (Discharge Instructions) for additional information. Follow-Up PCP within 1-2 weeks EEG as outpt to be arranged by Neurology Additional Copies To Antonieta Pruitt M.D.; Dee Kumar D.O.
== END 2017-11-29 14:40 | disposition home or self-care (01) ==
LOC: C.EDB 13:26 → C.MED 15:53 → ENRESERV 16:47
PROVIDERS: ADMIT Internal Medicine; ATTEND Family Medicine
DX: R20.2 Paresthesia of skin (principal); E53.8 Deficiency of other specified B group vitamins; F17.200 Nicotine dependence, unspecified, uncomplicated; I10 Essential (primary) hypertension; K21.9 Gastro-esophageal reflux disease without esophagitis; E78.5 Hyperlipidemia, unspecified

== ENCOUNTER → 2017-12-04 | Outpatient (CLI) | payer OTHER, MEDICARE ==
[~2017-12-04] MED LIST changes: -ASPEC325 PO; +ASPI325T39 PO; -ATOR10TA82 PO; -PRED1SUS OPR
--- NOTE | 2017-12-05 17:36 | EEG Procedure Note ---
EEG Procedure Note Date of Service Dec 04, 2017. Start / End Times Start Time: 2:10 PM End Time: 2:31 PM Referring Physician Dee Kumar History This is a 72-year-old male with seizure-like activity. EEG for further evaluation of possible seizure etiology. Home Medication List Scheduled Losartan Potassium (Cozaar), 100 MG PO QAM Omeprazole (Prilosec), 20 MG PO QAM Miscellaneous Medications Aspirin (Aspirin Ec), 325 MG PO Description This is a 21 electrode EEG with a single channel dedicated to limited EKG. The electrodes were placed in accordance with the International 10-20 system. At the start of the recording the patient was in an awake state. Background was well organized and composed of symmetric mixed alpha and beta frequencies. There was a symmetric well-formed moderate amplitude 8-9 Hz posterior dominant rhythm that was reactive to eye opening and closure. Hyperventilation was not done. Intermittent photic stimulation at various frequencies produced no abnormalities. There was no state changes or sleep transients. Interpretation This is a normal awake only routine EEG. There was no electrographic seizures or epileptiform discharges. Clinical Correlation A normal EEG does not rule out epilepsy if there is a strong clinical suspicion.
== END | disposition home or self-care (01) ==
LOC: C.NEUR 13:59
PROVIDERS: ATTEND Psychiatry & Neurology Neurology
DX: R56.9 Unspecified convulsions (principal)

== ENCOUNTER → 2018-05-29 | Outpatient (CLI) | payer OTHER, MEDICARE | END | disposition home or self-care (01) | LOC: C.LABMFLN 15:30 | PROVIDERS: ATTEND Family Medicine | DX: R51 Headache (principal) ==

== ENCOUNTER 2020-04-06 10:05 | Observation (INO) ==
[2020-04-06] MEDS ORDERED: NITROGLYCERIN 2% OINTMENT 30GM TUBE EXT STA (10:29)
--- NOTE | 2020-04-06 10:31 | Emergency Department Note ---
History of Present Illness General Chief complaint: Referred by Doctor Stated complaint: CHEST TIGHTNESS FOR ABOUT A WEEK AND HALF DOC REF Time Seen by Provider: 04/06/20 10:16 Source: patient Mode of arrival: ambulatory Limitations: no limitations History of Present Illness Provider complaint: Chest pain Onset (ago): week(s) 2 Location: chest Radiation: extremity (Right arm) Severity: moderate Pain Consistency: + intermittent Maximum Pain Intensity: 3 Current Pain Intensity: 2 Exacerbated By: + none Associated symptoms: no chest pain, no cough, no diaphoresis, no fever/chills, no malaise, no nausea/vomiting and no shortness of breath This is a 75-year-old male who presents with chest pain for the past 2 weeks. The pain is intermittent. He states he usually does not wake up with it but later in day he has it. It is not affected by exertion. He notices it more when he sitting on his recliner. He describes it as a tightness across his chest with pressure and heaviness over the top of his chest. It also radiates into his right arm. He has no associated shortness of breath, diaphoresis, lightheadedness, fever, cough, abdominal pain, vomiting or diarrhea. He has had no known contact with COVID-19. He has had a cardiac stress test many years ago. Home Medications Home Medications Medication Instructions Recorded Confirmed Type acetaminophen 500 mg tablet 500 mg PO Q4H PRN #30 tab 08/16/19 04/06/20 Rx aspirin 81 mg PO QAM 04/06/20 04/06/20 History cyanocobalamin (vitamin B-12) 1,000 mcg PO QAM 04/06/20 04/06/20 History diphenhydramine-acetaminophen 1 tab PO HS PRN 04/06/20 04/06/20 History [Tylenol PM Extra Strength] losartan [Cozaar] 100 mg PO QAM 04/06/20 04/06/20 History omeprazole 20 mg PO QAM 04/06/20 04/06/20 History Allergies Allergy/AdvReac Type Severity Reaction Status Date / Time atorvastatin Allergy Verified 04/06/20 11:38 celecoxib [From Celebrex] Allergy rash Verified 04/06/20 11:38 clopidogrel [From Plavix] Allergy hives Verified 04/06/20 11:38 oxycodone [From OxyContin] Allergy rash Verified 04/06/20 11:38 Past Med/Surg History Medical History Acid reflux disease (Chronic) Adenomatous polyp of colon (Chronic) Hopkins's esophagus (Chronic) Encounter for drainage of abscess 08/14/19 Dr. Bret Bernard- CT-guided percutaneous transgluteal placement of a 14 Czech diverticular abscess drainage catheter Esophageal stricture (Chronic) Generalized osteoarthritis of multiple sites (Chronic) Headache (Chronic) History of transient ischemic attack (Inactive) Hyperlipidemia (Chronic) Hypertension (Chronic) Idiopathic diffuse interstitial pulmonary fibrosis (Chronic) Lumbar stenosis with neurogenic claudication (Chronic 12/10/14) Vitamin B12 deficiency (Chronic) Surgical History History of esophagogastroduodenoscopy (EGD) S/P cataract extraction bilateral S/P colon resection 10/11/19 Dr. Marian Naylor- Laparoscopic hand-assisted anterior resection with coloproctostomy, flexible sigmoidoscopy, and transversus abdominus plane block. S/P colonoscopy S/P knee replacement left S/P lumbar fusion S/P revision of total knee left Family History Father Amyotrophic lateral sclerosis Son Sarcoma Denies family history of Ovarian cancer Prostate cancer Myocardial infarction Breast cancer Colorectal cancer Social History Preferred Language: Japanese Communication Ability: Effective Visual Impairment: Partially Limited Hearing Ability: Use of Hearing Aid Beliefs That Will Affect Care: None marital status: Current Living Situation: Spouse current occupational status: employed and retired current occupation: [employer] (part-time) - [employer]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 Other Information That Helps Us Care for You: No Feels Safe at Home: Yes Safety Concerns: Feels Safe At This Time Smoking Status: Current some day smoker Tobacco Type: cigars ; Second Hand Exposure: Yes ; Hx Alcohol Use: Yes Alcohol type: beer Alcohol Intake Frequency: Daily Alcohol Intake Frequency Comment: 1-2 beers Hx Substance Use: No Childhood Exposure to Second-Hand Smoke: No caffeine: Yes (coffee) during the past year weight has: remained stable Dental Care, Regularly: Yes Physical Activity Frequency: Daily Physical Activity Frequency Comment: working/walking Seatbelt Use: always Sunscreen Use: No Do you think of yourself as: straight/heterosexual Review of Systems See HPI for pertinent positives & negatives. and A total of 10 systems reviewed and were otherwise negative Physical Exam Vital Signs Vital Signs - 24 hr 04/06/20 10:14 04/06/20 10:26 04/06/20 10:30 Temperature 36.8 C Temperature Source Oral Pulse Rate 70 65 67 Pulse Rate from SpO2 Sensor Respiratory Rate 18 17 25 H Respiratory Effort / Characteristics Non-Labored Spontaneous Respiratory Depth Normal Respiratory Pattern Regular Blood Pressure 150/87 H Blood Pressure Mean 108 Blood Pressure Position Sitting Pulse Oximetry 95 Oxygen Delivery Method Room Air Sepsis Recent Fever Within 48 Hours No Sepsis New/Unexplained Change in Mental Status No Sepsis Action Taken by Nursing No Action Required 04/06/20 10:45 04/06/20 11:00 04/06/20 11:06 Temperature Temperature Source Pulse Rate 59 L 56 L Pulse Rate from SpO2 Sensor Respiratory Rate 18 20 Respiratory Effort / Characteristics Respiratory Depth Respiratory Pattern Blood Pressure Blood Pressure Mean Blood Pressure Position Pulse Oximetry 96 Oxygen Delivery Method Room Air Sepsis Recent Fever Within 48 Hours Sepsis New/Unexplained Change in Mental Status Sepsis Action Taken by Nursing 04/06/20 11:11 04/06/20 11:15 04/06/20 11:30 Temperature Temperature Source Pulse Rate 60 58 L 60 Pulse Rate from SpO2 Sensor 61 58 L 63 Respiratory Rate 18 20 16 Respiratory Effort / Characteristics Respiratory Depth Respiratory Pattern Blood Pressure 148/103 H Blood Pressure Mean 130 Blood Pressure Position Pulse Oximetry 98 98 88 L Oxygen Delivery Method Sepsis Recent Fever Within 48 Hours Sepsis New/Unexplained Change in Mental Status Sepsis Action Taken by Nursing 04/06/20 11:45 04/06/20 12:00 04/06/20 12:15 Temperature Temperature Source Pulse Rate 58 L 59 L 58 L Pulse Rate from SpO2 Sensor 58 L 61 58 L Respiratory Rate 19 19 20 Respiratory Effort / Characteristics Respiratory Depth Respiratory Pattern Blood Pressure 131/84 Blood Pressure Mean 102 Blood Pressure Position Pulse Oximetry 97 97 95 Oxygen Delivery Method Sepsis Recent Fever Within 48 Hours Sepsis New/Unexplained Change in Mental Status Sepsis Action Taken by Nursing 04/06/20 12:30 04/06/20 12:45 04/06/20 13:00 Temperature Temperature Source Pulse Rate 63 64 65 Pulse Rate from SpO2 Sensor 61 63 62 Respiratory Rate 20 19 18 Respiratory Effort / Characteristics Respiratory Depth Respiratory Pattern Blood Pressure Blood Pressure Mean Blood Pressure Position Pulse Oximetry 97 95 90 Oxygen Delivery Method Sepsis Recent Fever Within 48 Hours Sepsis New/Unexplained Change in Mental Status Sepsis Action Taken by Nursing 04/06/20 13:02 04/06/20 13:15 04/06/20 13:30 Temperature Temperature Source Pulse Rate 60 66 62 Pulse Rate from SpO2 Sensor 70 64 Respiratory Rate 18 16 20 Respiratory Effort / Characteristics Respiratory Depth Respiratory Pattern Blood Pressure 130/75 Blood Pressure Mean 79 Blood Pressure Position Pulse Oximetry 88 L 96 Oxygen Delivery Method Sepsis Recent Fever Within 48 Hours Sepsis New/Unexplained Change in Mental Status Sepsis Action Taken by Nursing 04/06/20 13:45 04/06/20 14:00 04/06/20 14:01 Temperature Temperature Source Pulse Rate 67 62 61 Pulse Rate from SpO2 Sensor 67 Respiratory Rate 21 13 16 Respiratory Effort / Characteristics Respiratory Depth Respiratory Pattern Blood Pressure 134/83 Blood Pressure Mean 112 Blood Pressure Position Pulse Oximetry 96 Oxygen Delivery Method Sepsis Recent Fever Within 48 Hours Sepsis New/Unexplained Change in Mental Status Sepsis Action Taken by Nursing Constitutional: Vital signs reviewed. Eyes: Pupils are equal round reactive to light. Conjunctiva are noninjected. ENT: Pharynx is clear without erythema or exudate. Mucous membranes are moist. Neck supple without meningeal signs. Respiratory: Clear to auscultation bilaterally. Breath sounds are equal bilaterally. Cardiovascular: Regular rate and rhythm. No rubs or gallops. GI: Soft, nondistended and nontender. Bowel sounds are present. Musculoskeletal: No peripheral edema. No lower extremity tenderness. Integumentary: No cyanosis. or jaundice. Neurological: The patient is awake and alert. No focal deficits. Psychiatric: Normal affect. Not anxious appearing. Course Administered Medications Discontinued Medications Nitroglycerin (Nitro-Bid 2%) 0.5 inch EXT NOW STA Stop: 04/06/20 10:30 Last Admin: 04/06/20 11:27 Dose: 0.5 inch Documented by: [id number] Medical Decision Making Differential Diagnosis Unstable angina, SC, pleurisy, GERD, esophagitis, pneumonia Medical Records Attestation: I reviewed the patient's medical records. I did perform a limited focused review of portions of the patient's old chart on the electronic medical record. The patient has had no recent pertinent visits to this hospital. Home Medications Current Medication List: was personally reviewed by me Laboratory Data Attestation: I reviewed the patient's lab results. Result diagrams: 04/06/20 11:15 04/06/20 11:15 Lab Results 04/06/20 04/06/20 04/06/20 Range/Units 11:15 11:15 11:15 WBC 7.38 (4.8-10.8) K/uL RBC 4.68 L (4.7-6.1) M/uL Hgb 15.1 (14.0-18.0) g/dL Hct 44.8 (42-52) % MCV 95.7 (80-100) fL MCH 32.3 (25-34) pg MCHC 33.7 (32-36) g/dL RDW Std Deviation 49.9 H (36.4-46.3) fL RDW Coeff of Rosy 14.2 (11.5-14.5) % Plt Count 229 (130-400) K/uL MPV 9.4 (7.4-10.4) fL Immature Gran % (Auto) 0.1 % Neut % (Auto) 67.0 % Lymph % (Auto) 21.8 % [place] % (Auto) 8.8 % Eos % (Auto) 2.0 % Baso % (Auto) 0.3 % Immature Gran # (Auto) 0.01 (0.00-0.02) K/uL Neut # (Auto) 4.94 (1.4-6.5) K/uL Lymph # (Auto) 1.61 (1.2-3.4) K/uL [place] # (Auto) 0.65 H (0.11-0.59) K/uL Eos # (Auto) 0.15 (0-0.5) K/uL Baso # (Auto) 0.02 (0-0.2) K/uL PT 10.6 (9.0-12.0) Seconds INR 1.0 (0.9-1.1) APTT 26.7 (21.0-31.0) Seconds PTT Ratio 1.0 Sodium 140 (136-145) mmol/L Potassium 4.1 (3.5-5.1) mmol/L Chloride 106 (98-107) mmol/L Carbon Dioxide 30 (21-32) mmol/L Anion Gap 4.0 (3-11) BUN 12 (7-18) mg/dl Creatinine 0.87 (0.6-1.4) mg/dl Est Cr Clr Drug Dosing 73.4 ml/min Est GFR ( Amer) 96.5 Est GFR (Non-Af Amer) 83.2 BUN/Creatinine Ratio 13.2 (10-20) Glucose 81 (70-99) mg/dl Calcium 9.1 (8.5-10.1) mg/dl Total Bilirubin 0.6 (0.2-1) mg/dl AST 11 L (15-37) U/L ALT 21 (12-78) U/L Alkaline Phosphatase 69 (45-117) U/L Troponin I < 0.015 (0-0.045) ng/ml Total Protein 7.4 (6.4-8.2) gm/dl Albumin 3.9 (3.4-5.0) gm/dl Globulin 3.5 (2.5-4.0) gm/dl Albumin/Globulin Ratio 1.1 (0.9-2) Imaging Data Radiologist's Impression: XR chest 1V portable CLINICAL HISTORY: Chest Pain dyspnea COMPARISON STUDY: 11/28/2017 FINDINGS: Mild chronic bibasilar interstitial change. Inspiratory volumes are diminished creating accentuation of these findings. Of the lungs are clear. IMPRESSION: Chronic basilar interstitial change. No acute process. ACT 112: Negative or not required by law. The above report was generated using voice recognition software. It may contain grammatical, syntax or spelling errors. Electronically signed by: Dl Magana M.D. 04/06/2020 10:50 AM ECG Data Attestation: I personally reviewed and interpreted this ECG as follows: Indication: + chest pain Rate (beats per minute): 64 Rhythm: + normal sinus ECG [facility]: + Normal ECG ST segments: no ST elevation ECG Findings: + LVH; no PVCs Blood Pressure Blood Pressure Findings: Elevated blood pressure Blood Pressure Disposition: further management by hospitalist BENNY Narrative I did evaluate the patient as noted above. The patient is presenting with a two-week history of intermittent chest heaviness and pressure with tightness. It is not related to exertion. IV access was established. I did place an order for continuous cardiac monitoring. The monitor showed normal sinus rhythm rate of 70. I did order and personally review the patient's 12-lead EKG as described above. He has no evidence of acute ischemia. He has no acute ischemic changes on twelve-lead EKG. He did take an aspirin this morning. He was given nitroglycerin paste half inch to the anterior chest wall. I did order and personally reviewed the images of the patient's chest x-ray as described above. This chest x-ray is unremarkable without acute process. I did order and review the patient's blood work as noted in the electronic medical record. CBC and electrolytes are unremarkable. Troponin is negative. I did reassess the patient. He is feeling better at this time. He has no significant chest pain currently. I did discuss the test results with him and recommend hospitalization for repeat cardiac biomarkers and monitoring. I did discuss the case with the hospitalist and case management specialist. Impression & Plan Acute chest pain Discharge Plan Visit Data Chief Complaint: Referred by Doctor Stated Complaint: CHEST TIGHTNESS FOR ABOUT A WEEK AND HALF DOC REF ED Provider: Josh Francois Discharge Problem: Acute chest pain Forms Stand Alone Forms: My [facility] Prescriptions Prescriptions: No Action acetaminophen 500 mg tablet 500 mg PO Q4H PRN (Reason: pain) Qty: 30 RF: 0 diphenhydramine-acetaminophen [Tylenol PM Extra Strength] 25-500 mg Tablet 1 tab PO HS PRN (Reason: Sleep) RF: 0 cyanocobalamin (vitamin B-12) 1,000 mcg tablet 1,000 mcg PO QAM RF: 0 aspirin 81 mg tablet,delayed release (DR/EC) 81 mg PO QAM RF: 0 omeprazole 20 mg capsule,delayed release(DR/EC) 20 mg PO QAM RF: 0 losartan [Cozaar] 100 mg tablet 100 mg PO QAM RF: 0
--- NOTE | 2020-04-06 10:51 | XRay Report ---
XR chest 1V portable CLINICAL HISTORY: Chest Pain dyspnea COMPARISON STUDY: 11/28/2017 FINDINGS: Mild chronic bibasilar interstitial change. Inspiratory volumes are diminished creating acc entuation of these findings. Of the lungs are clear. IMPRESSION: Chronic basilar interstitial change. No acute process. ACT 112: Negative or not required by law. The above report was generated using voice recognition software. It may contain grammatical, syntax or spelling errors. Electronically signed by: Dl Magana M.D. 04/06/2020 10:50 AM
[2020-04-06 11:38] LABS: Basophils # (auto) 0.02 K/uL (0-0.2); Basophils % (auto) 0.3 %; Eosinophils # (auto) 0.15 K/uL (0-0.5); Hematocrit (blood only) 44.8 % (42-52); Hemoglobin 15.1 g/dL (14.0-18.0); Immature Granulocytes # (auto) 0.01 K/uL (0.00-0.02); Immature Granulocytes % (auto) 0.1 %; Lymphocytes # (auto) 1.61 K/uL (1.2-3.4); Lymphocytes % (auto) 21.8 %; Mean Corpuscular Hemoglobin 32.3 pg (25-34); Mean Corpuscular Hgb Conc 33.7 g/dL (32-36); Mean Corpuscular Volume 95.7 fL (80-100); Mean Platelet Volume 9.4 fL (7.4-10.4); Monocytes # (auto) 0.65 K/uL (0.11-0.59); Monocytes % (auto) 8.8 %; Neutrophils # (auto) 4.94 K/uL (1.4-6.5); Platelet Count 229 K/uL (130-400); RDW Coefficient of Variation 14.2 % (11.5-14.5); RDW Standard Deviation 49.9 fL (36.4-46.3); Red Blood Count 4.68 M/uL (4.7-6.1); White Blood Count 7.38 K/uL (4.8-10.8)
[2020-04-06 11:49] LABS: Partial Thromboplastin Time 26.7 Seconds (21.0-31.0); Prothrombin Time 10.6 Seconds (9.0-12.0)
[2020-04-06 11:54] LABS: Alanine Aminotransferase 21 U/L (12-78); Albumin Level 3.9 gm/dl (3.4-5.0); Aspartate Aminotransferase 11 U/L (15-37); BUN Creatinine Ratio 13.2 (10-20); Blood Urea Nitrogen 12 mg/dl (7-18); Calcium 9.1 mg/dl (8.5-10.1); Carbon Dioxide 30 mmol/L (21-32); Chloride 106 mmol/L (98-107); Creatinine Clr Calc Pharmacy 73.4 ml/min; Est GFR (African American) 96.5; Est GFR (Non-African American) 83.2; Glucose 81 mg/dl (70-99); Potassium 4.1 mmol/L (3.5-5.1); Sodium 140 mmol/L (136-145)
[2020-04-06 11:59] LABS: Albumin Globulin Ratio 1.1 (0.9-2); Alkaline Phosphatase 69 U/L (45-117); Bilirubin,Total 0.6 mg/dl (0.2-1); Globulin 3.5 gm/dl (2.5-4.0); Total Protein 7.4 gm/dl (6.4-8.2); Troponin I < 0.015 ng/ml (0-0.045)
--- NOTE | 2020-04-06 13:43 | History & Physical Report ---
Date of Service April 06, 2020 Assessment & Plan (1) Atypical chest pain: This patient is a 75-year-old male with a history of interstitial lung disease, HTN, hyperlipidemia, GERD with Hopkins's esophagus, vitamin B12 deficiency, osteoarthritis, GERD, and lumbar stenosis status post lumbar dis cectomy and fusion, who presents to the ER with progressively worsening left- sided chest pain x2 months. Chest pain is atypical but he does have risk factors for CAD including age, gender, hyperlipidemia, hypertension. He has nontender over the chest wall but it does seem musculoskeletal in nature. He also has a diagnosis of interstitial lung disease and findings consistent with such on physical exam, but I cannot find any records showing he follows with pulmonology. No evidence of pneumothorax on chest imaging with x-ray. His pain did slightly improve with nitroglycerin paste in the ER Initial troponin is negative, ECG without ischemic changes BMP, CBC, and LFTs all within normal limits -Admit to medical floor with telemetry for observation overnight -Serial troponins, daily ECG -Resting echocardiogram -Cardiology consultation requested -We will make n.p.o. after midnight for stress echo tomorrow if rules out-with the caveat that he has severe arthritis in the right knee but does think he can walk on a treadmill for stress test -Consider chest CT and follow-up with pulmonology either here or as an outpatient if pain persists -Wanted to trial Voltaren gel, but he has a history of pruritus and rash with Celebrex so we will avoid at this time -Likely home tomorrow if ACS ruled out (2) Acid reflux disease: Continue PPI With history of Hopkins's esophagus-needs surveillance EGDs every 2 to 3 years (3) Hyperlipidemia: Has a history of intolerance to statins -Check lipid panel in the morning (4) Hypertension: Blood pressures are controlled here -Continue home losartan (5) Idiopathic diffuse interstitial pulmonary fibrosis: As noted above, with crackles on examination and chronic changes on chest x-ray Would need pulmonology follow-up as an outpatient and PFTs Checking echocardiogram which would assess for pulmonary hypertension No evidence of hypoxia or shortness of breath here (6) Vitamin B12 deficiency: Continue home B12 supplement (7) DVT prophylaxis: SCDs, Lovenox Disposition-admitting for observation overnight but likely discharge home on Monday History of Present Illness Chief Complaint: Chest pain Primary Care Provider: Antonieta Pruitt MD This patient is a 75-year-old male with a history of interstitial lung disease, HTN, hyperlipidemia, GERD with Hopkins's esophagus, osteoarthritis, GERD, and lumbar stenosis status post lumbar discectomy and fusion, who presents to the ER with progressively worsening left-sided chest pain x2 months. He reports it initially started after he was sitting in a recliner for a long period of time and thought initially was a musculoskeletal pain on the left side of the chest. Since that time, it has not gone completely away, and seems to worsen throughout the day with activities and improves at night after taking Tylenol PM. He does not have any associated shortness of breath, nausea or vomiting, or diaphoresis. He also then a couple of days ago had an "odd feeling" in the right upper extremity associated with the chest pain. It is not tender to the touch over the chest and he describes it as a 3/10 in severity and like a tightness or pressure. He has not tried taking anything at home to make it better but is convinced that it is not a muscular problem. He does have a history of allergy to NSAIDs, but has continued to take aspirin daily for primary prevention. He finally came to the ER when the severity seemed more than previous, and at the encouragement of his family members to make sure everything was okay. He will be admitted for observation for chest pain work-up. Allergies Allergy/AdvReac Type Severity Reaction Status Date / Time atorvastatin Allergy Verified 04/06/20 11:38 celecoxib [From Celebrex] Allergy rash Verified 04/06/20 11:38 clopidogrel [From Plavix] Allergy hives Verified 04/06/20 11:38 oxycodone [From OxyContin] Allergy rash Verified 04/06/20 11:38 Home Medications Home Medications Medication Instructions Recorded Confirmed Type acetaminophen 500 mg tablet 500 mg PO Q4H PRN #30 tab 08/16/19 04/06/20 Rx aspirin 81 mg PO QAM 04/06/20 04/06/20 History cyanocobalamin (vitamin B-12) 1,000 mcg PO QAM 04/06/20 04/06/20 History diphenhydramine-acetaminophen 1 tab PO HS PRN 04/06/20 04/06/20 History [Tylenol PM Extra Strength] losartan [Cozaar] 100 mg PO QAM 04/06/20 04/06/20 History omeprazole 20 mg PO QAM 04/06/20 04/06/20 History Past Med/Surg History Medical History Acid reflux disease (Chronic) Adenomatous polyp of colon (Chronic) Hopkins's esophagus (Chronic) Encounter for drainage of abscess 08/14/19 Dr. Bret Bernard- CT-guided percutaneous transgluteal placement of a 14 Korean diverticular abscess drainage catheter Esophageal stricture (Chronic) Generalized osteoarthritis of multiple sites (Chronic) Headache (Chronic) History of transient ischemic attack (Inactive) Hyperlipidemia (Chronic) Hypertension (Chronic) Idiopathic diffuse interstitial pulmonary fibrosis (Chronic) Lumbar stenosis with neurogenic claudication (Chronic 12/10/14) Vitamin B12 deficiency (Chronic) Surgical History History of esophagogastroduodenoscopy (EGD) S/P cataract extraction bilateral S/P colon resection 10/11/19 Dr. Marian Naylor- Laparoscopic hand-assisted anterior resection with coloproctostomy, flexible sigmoidoscopy, and transversus abdominus plane block. 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 Feels Safe at Home: Yes Smoking Status: Current some day smoker Tobacco Type: cigars ; Second Hand Exposure: Yes ; Hx Alcohol Use: Yes Alcohol type: beer Alcohol Intake Frequency: Daily Alcohol Intake Frequency Comment: 1-2 beers Hx Substance Use: No Childhood Exposure to Second-Hand Smoke: No caffeine: Yes (coffee) during the past year weight has: remained stable Dental Care, Regularly: Yes Physical Activity Frequency: Daily Physical Activity Frequency Comment: working/walking Seatbelt Use: always Sunscreen Use: No Do you think of yourself as: straight/heterosexual Review of Systems Review of Systems: All systems reviewed & are unremarkable except as noted in HPI & below (No changes in bowel or bladder habits, no rashes or new joint pains) Physical Exam Constitutional: WD/WN, vitals as above Eyes: PERRL, conjunctivae normal, anicteric sclerae ENMT: external ear and nose normal, oropharynx normal Neck: trachea midline, no thyromegaly Respiratory: normal respiratory effort; no labored breathing Auscultation: + crackles (Fine crackles in the bilateral lower and middle lung ellington bilaterally); no rhonchi and no wheezes Cardiovascular: RRR, no murmur, no edema Extremities: no calf tenderness Chest (Breasts): Chest: normal inspection of chest (No tenderness to palpation over entire chest wall) Gastrointestinal (Abdomen): normal bowel sounds, soft, nontender, no hepatosplenomegaly Inspection/Auscultation: + abdomen abnormal to inspection (Multiple small laparoscopic surgical scars) Musculoskeletal: Extremities: extremities normal to inspection; no cyanosis and no clubbing Skin: no rashes, warm and dry Neurologic: moves all extremities and awake; no focal motor deficits Psychiatric: A+Ox3, euthymic affect Lymphatic: no lymphedema Results & Data Results & Data ([facility]) Vital Signs (Past 12 Hours) Vital Signs Temp Pulse Resp BP Pulse Ox 04/06/20 12:30 63 20 97 04/06/20 12:15 58 L 20 95 04/06/20 12:00 59 L 19 131/84 97 04/06/20 11:45 58 L 19 97 04/06/20 11:30 60 16 88 L 04/06/20 11:15 58 L 20 98 04/06/20 11:11 60 18 148/103 H 98 04/06/20 11:06 96 04/06/20 11:00 56 L 20 04/06/20 10:45 59 L 18 04/06/20 10:30 67 25 H 04/06/20 10:26 65 17 04/06/20 10:14 36.8 C 70 18 150/87 H 95 Laboratory Results 04/06/20 04/06/20 04/06/20 Range/Units 11:15 11:15 11:15 WBC 7.38 (4.8-10.8) K/uL RBC 4.68 L (4.7-6.1) M/uL Hgb 15.1 (14.0-18.0) g/dL Hct 44.8 (42-52) % MCV 95.7 (80-100) fL MCH 32.3 (25-34) pg MCHC 33.7 (32-36) g/dL RDW Std Deviation 49.9 H (36.4-46.3) fL RDW Coeff of Rosy 14.2 (11.5-14.5) % Plt Count 229 (130-400) K/uL MPV 9.4 (7.4-10.4) fL Immature Gran % (Auto) 0.1 % Neut % (Auto) 67.0 % Lymph % (Auto) 21.8 % [place] % (Auto) 8.8 % Eos % (Auto) 2.0 % Baso % (Auto) 0.3 % Immature Gran # (Auto) 0.01 (0.00-0.02) K/uL Neut # (Auto) 4.94 (1.4-6.5) K/uL Lymph # (Auto) 1.61 (1.2-3.4) K/uL [place] # (Auto) 0.65 H (0.11-0.59) K/uL Eos # (Auto) 0.15 (0-0.5) K/uL Baso # (Auto) 0.02 (0-0.2) K/uL PT 10.6 (9.0-12.0) Seconds INR 1.0 (0.9-1.1) APTT 26.7 (21.0-31.0) Seconds PTT Ratio 1.0 Sodium 140 (136-145) mmol/L Potassium 4.1 (3.5-5.1) mmol/L Chloride 106 (98-107) mmol/L Carbon Dioxide 30 (21-32) mmol/L Anion Gap 4.0 (3-11) BUN 12 (7-18) mg/dl Creatinine 0.87 (0.6-1.4) mg/dl Est Cr Clr Drug Dosing 73.4 ml/min Est GFR ( Amer) 96.5 Est GFR (Non-Af Amer) 83.2 BUN/Creatinine Ratio 13.2 (10-20) Glucose 81 (70-99) mg/dl Calcium 9.1 (8.5-10.1) mg/dl Total Bilirubin 0.6 (0.2-1) mg/dl AST 11 L (15-37) U/L ALT 21 (12-78) U/L Alkaline Phosphatase 69 (45-117) U/L Troponin I < 0.015 (0-0.045) ng/ml Total Protein 7.4 (6.4-8.2) gm/dl Albumin 3.9 (3.4-5.0) gm/dl Globulin 3.5 (2.5-4.0) gm/dl Albumin/Globulin Ratio 1.1 (0.9-2) Diagnostic Findings Chest x-ray image personally reviewed by me and agree with the following report: XR chest 1V portable CLINICAL HISTORY: Chest Pain dyspnea COMPARISON STUDY: 11/28/2017 FINDINGS: Mild chronic bibasilar interstitial change. Inspiratory volumes are diminished creating accentuation of these findings. Of the lungs are clear. IMPRESSION: Chronic basilar interstitial change. No acute process. ECG Additional Comments: ECG here with normal sinus rhythm, borderline criteria for LVH, no ischemic changes Code Status & VTE Plan Code Status Full code VTE Prophylaxis Plan VTE Prophylaxis will be ordered: Yes PG Care Time/CCT Total # of Minutes Spent Total Time Spent with Patient: Total time spent is greater than 50% in coordination of care (as documented) at patient's floor/unit and/or counseling patient: Coding Level of Care Code 05826 OBS Care - Level 3 Diagnoses Atypical chest pain R07.89 Acid reflux disease K21.9 Hyperlipidemia E78.5 Hypertension I10 Idiopathic diffuse interstitial pulmonary fibrosis J84.112 Vitamin B12 deficiency E53.8 DVT prophylaxis Z29.9
--- NOTE | 2020-04-06 15:38 | XCELERA ---
[id number]
[2020-04-06] MEDS ORDERED: ACETAMINOPHEN 500 MG TAB PO PRN (16:59)
[2020-04-06] MEDS ORDERED: ALUMINUM/MAGNESIUM SUSP 30 ML UDC PO PRN (16:59)
[2020-04-06] MEDS ORDERED: POLYETHYLENE (MIRALAX) 17 GM PACK PO PRN (16:59)
[2020-04-06] MEDS ORDERED: NITROGLYCERIN SL 0.4 MG/TAB TAB SL PRN (16:59)
[2020-04-06] MEDS ORDERED: NON-FORMULARY MEDICATION (Diphenhydramine-Acetaminophen [Tylenol Pm Extra Strength] 1 TAB) PO PRN (16:59)
[2020-04-06] MEDS ORDERED: ONDANSETRON INJ 2 MG/ML 2 ML VIAL IV PRN (16:59)
[2020-04-06] MEDS ORDERED: ENOXAPARIN INJ 40 MG/0.4 ML SYR SQ SCH (21:00)
[2020-04-07 01:49] LABS: BUN Creatinine Ratio 17.4 (10-20); Blood Urea Nitrogen 15 mg/dl (7-18); Calcium 8.3 mg/dl (8.5-10.1); Carbon Dioxide 29 mmol/L (21-32); Chloride 108 mmol/L (98-107); Est GFR (African American) 97.9; Est GFR (Non-African American) 84.5; Glucose 91 mg/dl (70-99); Potassium 4.4 mmol/L (3.5-5.1); Sodium 142 mmol/L (136-145)
[2020-04-07 01:54] LABS: Chol HDL Ratio 3; Cholesterol 162 mg/dl (0-200); HDL Cholesterol 48 mg/dl; LDL Cholesterol Calculated 93 mg/dl; Triglycerides 107 mg/dl (0-150); Troponin I < 0.015 ng/ml (0-0.045); VLDL Cholesterol 21 mg/dl
--- NOTE | 2020-04-07 08:35 | Cardiology Consultation ---
Date of Consultation April 07, 2020 Assessment & Plan (1) Atypical chest pain: Mr. Yang is a 75 year old male with a history of Interstitial Lung Disease, Hypertension, Hyperlipidemia, GERD with Hopkins's Esophagus, Osteoarthritis, and Lumbar Spinal Stenosis s/p Lumbar Discectomy and Fusion who was admitted to [facility] on 04/06/2020 an Atypical Left Sided Chest Pain/Pressure x 2 months. This chest discomfort is not exertional, does not radiate, and is without associated symptoms. It usually minimal when he 1st wakes up in the morning, but is present all day long and it usually worse towards evening. It is not positional. His EKG's show no acute changes, telemetry is unremarkable, and troponin I is immeasurable x 3. Echocardiogram shows normal LV systolic function with normal wall motion. A dobutamine stress echocardiogram is pending. This does not appear to be cardiac in origin. Differential diagnosis includes but is not limited to esophageal origin, esophagitis, lower cervical or upper thoracic radiculopathy, vs musculoskeletal origin. Recommend the following: -- Continue Aspirin 81 mg daily for primary prevention. -- Continue walking / aerobic exercise program as tolerated. -- Maintain a heart healthy diet. -- Continue to treat underlying risk factors. (2) Hypertension: Overall BP appears to be controlled. -- Continue Losartan 100 mg daily. (3) Hyperlipidemia: Lipid panel is favorable. -- Continue aerobic activities. -- Maintain a heart healthy diet. (4) Idiopathic diffuse interstitial pulmonary fibrosis: -- Continue management as per PCP and Pulmonology. History of Present Illness Reason for Consultation: -- Chest Pain. Requesting Physician: Jori Moon Attending Physician: Ward Coats MD History of Present Illness Mr. Yang is a 75 year old male with a history of Interstitial Lung Disease, Hypertension, Hyperlipidemia, GERD with Hopkins's Esophagus, Osteoarthritis, and Lumbar Spinal Stenosis s/p Lumbar Discectomy and Fusion who was admitted to [facility] on 04/06/2020 complaining of worsening Left Sided Chest Pain x 2 months. The chest discomfort is described as a pressure mostly in the left chest and the right chest to a lesser degree. It had its onset one day about 2 months ago when he was sitting in a recliner. He thought it may have been related to the chair that he was sitting in so he stopped using that recliner. He now sits upright or lies down when he is resting. The chest discomfort is usually minimally present when he first wakes up in the morning, but throughout the day he notices it more and more. This chest discomfort does not get worse with exertion, nor is it relieved by resting or position change. Patient denies any associated symptoms with the. He specifically denies any associated nausea, vomiting, diaphoresis, or dyspnea. On a single occasion, he felt some tingling in his right arm -- but is uncertain if that was related. Patient continues to walk a mile a day and can do so without limiting cardiopulmonary symptoms. He paces himself because of needing a knee replacement. He denies any limiting cardiopulmonary symptoms whatsoever and this chest discomfort does not get worse when he goes for a walk. Patient's exertional tolerance is stable. Patient specifically denies any exertional chest pain, heaviness, tightness, pressure, or discomfort. He denies any exertional neck, jaw, back, or arm pain. He denies any shortness of breath, unusual dyspnea on exertion, orthopnea, or PND. Patient denies any palpitations, syncope, or near syncope. Patient denies any prior cardiac history or prior cardiac events. His cholesterol numbers are favorable. Patient does have osteoarthritis, which may involve his cervical spine. The far his cardiac workup is unremarkable. Telemetry monitoring shows normal sinus rhythm to sinus bradycardia. Cardiac enzymes are negative x 3. EKG's a sinus mechanism with borderline voltage criteria for LVH. No ST segment or T- wave abnormalities. No dynamic changes. Allergies Allergy/AdvReac Type Severity Reaction Status Date / Time atorvastatin Allergy Verified 04/06/20 11:38 celecoxib [From Celebrex] Allergy rash Verified 04/06/20 11:38 clopidogrel [From Plavix] Allergy hives Verified 04/06/20 11:38 oxycodone [From OxyContin] Allergy rash Verified 04/06/20 11:38 Home Medications Home Medications Medication Instructions Recorded Confirmed Type acetaminophen 500 mg tablet 500 mg PO Q4H PRN #30 tab 08/16/19 04/06/20 Rx aspirin 81 mg PO QAM 04/06/20 04/06/20 History cyanocobalamin (vitamin B-12) 1,000 mcg PO QAM 04/06/20 04/06/20 History diphenhydramine-acetaminophen 1 tab PO HS PRN 04/06/20 04/06/20 History [Tylenol PM Extra Strength] losartan [Cozaar] 100 mg PO QAM 04/06/20 04/06/20 History omeprazole 20 mg PO QAM 04/06/20 04/06/20 History Patient History Medical History Acid reflux disease (Chronic) Adenomatous polyp of colon (Chronic) Hopkins's esophagus (Chronic) Encounter for drainage of abscess 08/14/19 Dr. Bret Bernard- CT-guided percutaneous transgluteal placement of a 14 Turkish diverticular abscess drainage catheter Esophageal stricture (Chronic) Generalized osteoarthritis of multiple sites (Chronic) Headache (Chronic) History of transient ischemic attack (Inactive) Hyperlipidemia (Chronic) Hypertension (Chronic) Idiopathic diffuse interstitial pulmonary fibrosis (Chronic) Lumbar stenosis with neurogenic claudication (Chronic 12/10/14) Vitamin B12 deficiency (Chronic) Surgical History History of esophagogastroduodenoscopy (EGD) S/P cataract extraction bilateral S/P colon resection 10/11/19 Dr. Marian Naylor- Laparoscopic hand-assisted anterior resection with coloproctostomy, flexible sigmoidoscopy, and transversus abdominus plane block. 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 Feels Safe at Home: Yes Smoking Status: Current some day smoker Tobacco Type: cigars ; Second Hand Exposure: Yes ; Hx Alcohol Use: Yes Alcohol type: beer Alcohol Intake Frequency: Daily Alcohol Intake Frequency Comment: 1-2 beers Hx Substance Use: No Childhood Exposure to Second-Hand Smoke: No caffeine: Yes (coffee) during the past year weight has: remained stable Dental Care, Regularly: Yes Physical Activity Frequency: Daily Physical Activity Frequency Comment: working/walking Seatbelt Use: always Sunscreen Use: No Do you think of yourself as: straight/heterosexual Physical Exam Physical Exam: GENERAL: Patient in no acute distress. HEENT: Head is atraumatic, normocephalic. EOM's intact. Facies symmetric. No perioral cyanosis. NECK: No JVD. JVP is at the level of the clavicle sitting upright. Carotid upstrokes are + 2 bilaterally. No bruits are noted. CHEST/LUNGS: Diffuse dry crackles in bilateral bases. No wheezes noted. CVS: S1 and S2 are regular and bradycardic at 58 bpm. No murmurs, gallops, or rubs. PMI is nondisplaced. No lifts, heaves, or thrills. No abdominal aortic or renal bruits. ABDOMINAL EXAM: Bowel sounds are present. No masses, organomegaly, or tenderness. EXTREMITIES: No clubbing or cyanosis. No edema. Intact posterior tibial and radial pulses bilaterally. NEUROLOGIC EXAM: Patient is awake, alert, and oriented. Pleasant and cooperative. Answers questions appropriately. Speech is clear. Normal movement in all 4 extremities. Gait pattern is unremarkable. ECHOCARDIOGRAM 04/06/2020: -- Normal LV size, wall motion, and systolic function. -- LVEF 55% to 60%. -- Normal RV size and systolic function. -- No significant valvular abnormalities. Dobutamine Stress Echocardiogram is pending. Results & Data ([facility]) Vital Signs (Past 12 Hours) Vital Signs Temp Pulse Pulse Resp BP Pulse Ox 04/07/20 07:03 36.8 C 59 L 16 133/80 95 04/07/20 03:17 36.8 C 58 L 18 111/66 98 04/07/20 00:09 36.5 C 52 L 15 124/74 97 04/06/20 23:45 48 L Laboratory Results Laboratory Results - last 24 hr 04/06/20 04/06/20 04/06/20 11:15 11:15 11:15 WBC 7.38 RBC 4.68 L Hgb 15.1 Hct 44.8 MCV 95.7 MCH 32.3 MCHC 33.7 RDW Std Deviation 49.9 H RDW Coeff of Rosy 14.2 Plt Count 229 MPV 9.4 Immature Gran % (Auto) 0.1 Neut % (Auto) 67.0 Lymph % (Auto) 21.8 [place] % (Auto) 8.8 Eos % (Auto) 2.0 Baso % (Auto) 0.3 Immature Gran # (Auto) 0.01 Neut # (Auto) 4.94 Lymph # (Auto) 1.61 [place] # (Auto) 0.65 H Eos # (Auto) 0.15 Baso # (Auto) 0.02 PT 10.6 INR 1.0 APTT 26.7 PTT Ratio 1.0 Sodium 140 Potassium 4.1 Chloride 106 Carbon Dioxide 30 Anion Gap 4.0 BUN 12 Creatinine 0.87 Est Cr Clr Drug Dosing 73.4 Est GFR ( Amer) 96.5 Est GFR (Non-Af Amer) 83.2 BUN/Creatinine Ratio 13.2 Glucose 81 Calcium 9.1 Total Bilirubin 0.6 AST 11 L ALT 21 Alkaline Phosphatase 69 Troponin I < 0.015 Total Protein 7.4 Albumin 3.9 Globulin 3.5 Albumin/Globulin Ratio 1.1 Triglycerides Cholesterol LDL Cholesterol, Calc VLDL Cholesterol, Calc HDL Cholesterol Cholesterol/HDL Ratio 04/06/20 04/07/20 19:51 01:18 WBC RBC Hgb Hct MCV MCH MCHC RDW Std Deviation RDW Coeff of Rosy Plt Count MPV Immature Gran % (Auto) Neut % (Auto) Lymph % (Auto) [place] % (Auto) Eos % (Auto) Baso % (Auto) Immature Gran # (Auto) Neut # (Auto) Lymph # (Auto) [place] # (Auto) Eos # (Auto) Baso # (Auto) PT INR APTT PTT Ratio Sodium 142 Potassium 4.4 Chloride 108 H Carbon Dioxide 29 Anion Gap 5.0 BUN 15 Creatinine 0.84 Est Cr Clr Drug Dosing 76.0 Est GFR ( Amer) 97.9 Est GFR (Non-Af Amer) 84.5 BUN/Creatinine Ratio 17.4 Glucose 91 Calcium 8.3 L Total Bilirubin AST ALT Alkaline Phosphatase Troponin I < 0.015 < 0.015 Total Protein Albumin Globulin Albumin/Globulin Ratio Triglycerides 107 Cholesterol 162 LDL Cholesterol, Calc 93 VLDL Cholesterol, Calc 21 HDL Cholesterol 48 Cholesterol/HDL Ratio 3 Medications Administered Active Medications Generic Name Dose Route Start Last Admin Trade Name Freq PRN Reason Stop Dose Admin Acetaminophen 500 mg 04/06/20 16:59 04/06/20 21:19 Tylenol PO 05/06/20 16:58 500 mg Q4H PRN Administration pain Al Hydrox/Mg Hydrox/Simethicone 15 ml 04/06/20 16:59 Maalox PO 05/06/20 16:58 Q4H PRN Dyspepsia Aspirin 81 mg 04/07/20 09:00 04/07/20 07:46 Ecotrin Ectab PO 05/07/20 08:59 81 mg QAM YEVGENIY Administration Cyanocobalamin 1,000 mcg 04/07/20 09:00 04/07/20 07:46 Vitamin B-12 PO 05/07/20 08:59 1,000 mcg QAM YEVGENIY Administration Enoxaparin Sodium 40 mg 04/06/20 21:00 04/06/20 20:56 Lovenox SQ 05/06/20 20:59 Not Given HS YEVGENIY Losartan Potassium 100 mg 04/07/20 09:00 04/07/20 07:45 Cozaar PO 05/07/20 08:59 100 mg QAM YEVGENIY Administration Nitroglycerin 0.4 mg 04/06/20 16:59 Nitrostat SL 05/06/20 16:58 UD PRN Chest Pain Ondansetron HCl 4 mg 04/06/20 16:59 Zofran IV 05/06/20 16:58 Q6H PRN Nausea Pantoprazole Sodium 40 mg 04/07/20 09:00 04/07/20 07:46 Protonix PO 05/07/20 08:59 40 mg QAM YEVGENIY Administration Polyethylene Glycol 17 gm 04/06/20 16:59 Miralax Powder Packet PO 05/06/20 16:58 DAILY PRN Constipation PG Care Time/CCT Total # of Minutes Spent Total Time Spent with Patient: Total time spent is greater than 50% in coordination of care (as documented) at patient's floor/unit and/or counseling patient: Coding Level of Care Code 56256 Initial Inpt Care Lvl 3 Diagnoses Atypical chest pain R07.89 Hypertension I10 Hyperlipidemia E78.5 Idiopathic diffuse interstitial pulmonary fibrosis J84.112
[2020-04-07] MEDS ORDERED: LOSARTAN POTASSIUM 50 MG TAB PO SCH (09:00)
[2020-04-07] MEDS ORDERED: ASPIRIN 81 MG ECTAB PO SCH (09:00)
[2020-04-07] MEDS ORDERED: CYANOCOBALAMIN 500 MCG TABLET (VITAMIN B-12) PO SCH (09:00)
[2020-04-07] MEDS ORDERED: PANTOprazole 40 MG TAB PO SCH (09:00)
[2020-04-07] MEDS ORDERED: DOBUTamine HCL 12.5 MG/ML 20 ML VIAL IV ONE (10:38)
[2020-04-07] MEDS ORDERED: ATROPINE SULFATE 0.1 MG/ML 10ML SYR IV ONE (10:38)
[2020-04-07] MEDS ORDERED: METOPROLOL TARTRATE 1 MG/ML VIAL IV ONE (10:38)
--- NOTE | 2020-04-07 11:27 | Electrocardiogram Report ---
Test Reason : Blood Pressure : / mmHG Vent. Rate : 064 BPM Atrial Rate : 064 BPM P-R Int : 192 ms QRS Dur : 088 ms QT Int : 394 ms P-R-T Axes : 039 003 016 degrees QTc Int : 406 ms Normal sinus rhythm Minimal voltage criteria for LVH, may be normal variant Borderline ECG When compared with ECG of 28-NOV-2017 13:56, No significant change was found Confirmed by Ward Coats ([id number]) on 04/07/2020 11:27:05 AM Referred By: Confirmed By:Ward Coats
--- NOTE | 2020-04-07 12:34 | Electrocardiogram Report ---
Test Reason : Blood Pressure : / mmHG Vent. Rate : 058 BPM Atrial Rate : 058 BPM P-R Int : 200 ms QRS Dur : 098 ms QT Int : 424 ms P-R-T Axes : 046 020 037 degrees QTc Int : 416 ms Sinus bradycardia Otherwise normal ECG When compared with ECG of 06-APR-2020 10:20, (unconfirmed) No significant change was found Confirmed by Ward Coats ([id number]) on 04/07/2020 12:34:25 PM Referred By: Antonieta Pruitt Confirmed By:Ward Coats
--- NOTE | 2020-04-07 14:33 | XCELERA ---
[id number]
--- NOTE | 2020-04-14 00:31 | Discharge Summary ---
Date of Service April 07, 2020 Admission HPI Per Admitting Provider This patient is a 75-year-old male with a history of interstitial lung disease, HTN, hyperlipidemia, GERD with Hopkins's esophagus, osteoarthritis, GERD, and lumbar stenosis status post lumbar discectomy and fusion, who presents to the ER with progressively worsening left-sided chest pain x2 months. He reports it initially started after he was sitting in a recliner for a long period of time and thought initially was a musculoskeletal pain on the left side of the chest. Since that time, it has not gone completely away, and seems to worsen throughout the day with activities and improves at night after taking Tylenol PM. He does not have any associated shortness of breath, nausea or vomiting, or diaphoresis. He also then a couple of days ago had an "odd feeling" in the right upper extremity associated with the chest pain. It is not tender to the touch over the chest and he describes it as a 3/10 in severity and like a tightness or pressure. He has not tried taking anything at home to make it better but is convinced that it is not a muscular problem. He does have a history of allergy to NSAIDs, but has continued to take aspirin daily for primary prevention. He finally came to the ER when the severity seemed more than previous, and at the encouragement of his family members to make sure everything was okay. He will be admitted for observation for chest pain work-up. Principal Diagnosis atypical chest pain Discharge Exam Constitutional: WD/WN, vitals as above Eyes: PERRL, conjunctivae normal, anicteric sclerae ENMT: external ear and nose normal, oropharynx normal Neck: trachea midline, no thyromegaly Respiratory: normal respiratory effort; no labored breathing Auscultation: CTA B/L; no rhonchi and no wheezes Cardiovascular: RRR, no murmur, no edema Extremities: no calf tenderness Chest (Breasts): Chest: normal inspection of chest (No tenderness to palpation over entire chest wall) Gastrointestinal (Abdomen): normal bowel sounds, soft, nontender, no hepatosplenomegaly Inspection/Auscultation: + abdomen abnormal to inspection (Multiple small laparoscopic surgical scars) Musculoskeletal: Extremities: extremities normal to inspection; no cyanosis and no clubbing Skin: no rashes, warm and dry Neurologic: moves all extremities and awake; no focal motor deficits Psychiatric: A+Ox3, euthymic affect Lymphatic: no lymphedema Discharge Data Allergies Allergy/AdvReac Type Severity Reaction Status Date / Time atorvastatin Allergy Verified 04/06/20 11:38 celecoxib [From Celebrex] Allergy rash Verified 04/06/20 11:38 clopidogrel [From Plavix] Allergy hives Verified 04/06/20 11:38 oxycodone [From OxyContin] Allergy rash Verified 04/06/20 11:38 Consultations 04/06/20 12:33 ED Decision to Admit Stat 04/06/20 16:59 Consult Cardiology Routine Hospital Course (1) Atypical chest pain: This patient is a 75-year-old male with a history of interstitial lung disease, HTN, hyperlipidemia, GERD with Hopkins's esophagus, vitamin B12 deficiency, osteoarthritis, GERD, and lumbar stenosis status post lumbar discectomy and fusion, who presents to the ER with progressively worsening left- sided chest pain x2 months. Chest pain is atypical but he does have risk factors for CAD including age, gender, hyperlipidemia, hypertension. He has nontender over the chest wall but it does seem musculoskeletal in nature. He also has a diagnosis of interstitial lung disease and findings consistent with such on physical exam, but I cannot find any records showing he follows with pulmonology. No evidence of pneumothorax on chest imaging with x-ray. His pain did slightly improve with nitroglycerin paste in the ER Initial troponin is negative, ECG without ischemic changes BMP, CBC, and LFTs all within normal limits -Admit to medical floor with telemetry for observation overnight -Serial troponins, daily ECG -Resting echocardiogram -Cardiology consultation requested Stress test was completed and negative. Patient will be discharged home. (2) Acid reflux disease: Continue PPI With history of Hopkins's esophagus-needs surveillance EGDs every 2 to 3 years (3) Hyperlipidemia: Has a history of intolerance to statins -Check lipid panel in the morning (4) Hypertension: Blood pressures are controlled here -Continue home losartan (5) Idiopathic diffuse interstitial pulmonary fibrosis: As noted above, with crackles on examination and chronic changes on chest x-ray Would need pulmonology follow-up as an outpatient and PFTs \\ No evidence of hypoxia or shortness of breath here (6) Vitamin B12 deficiency: Continue home B12 supplement (7) DVT prophylaxis: SCDs, Lovenox Disposition-admitting for observation overnight but likely discharge home on Monday Total Time Total Time Spent Total Time Spent (In Minutes): 32 Total Time Includes: Examination of the Patient, Discharge Planning and Medication Reconciliation Discharge Plan Discharge Items Patient Disposition: Home - Self-Care Reason For Visit: CHEST PAIN Discharge Diagnosis: chest pain Activity: Resume your previous activity Non-emergency contact: Primary Care Provider Call non-emergency contact if: you have any medication questions Follow-up/Referrals: Antonieta Pruitt MD [Primary Care Provider] - 04/10/20 7:30 am (You have a follow up appointment made with your primary care doctor. If you can not make this appointment please call the office to reschedule.) Diet: Heart Healthy Addtl Attending Provider Instructions: You have been hospitalized for a chest pain rule out. During your stay at [facility], we ordered a stress test which places you in the low risk category. Your discharge instructions will include directions for any medications you should take after leaving the hospital. Please make sure you see your Primary Care Provider as part of your follow up plan. Pending Studies at Discharge: No Stand-Alone Forms: My [facility], Smoking Cessation Medications and DC Order Prescriptions: Continued acetaminophen 500 mg tablet 500 mg PO Q4H PRN (Reason: pain) Qty: 30 RF: 0 diphenhydramine-acetaminophen [Tylenol PM Extra Strength] 25-500 mg Tablet 1 tab PO HS PRN (Reason: Sleep) RF: 0 cyanocobalamin (vitamin B-12) 1,000 mcg tablet 1,000 mcg PO QAM RF: 0 aspirin 81 mg tablet,delayed release (DR/EC) 81 mg PO QAM RF: 0 omeprazole 20 mg capsule,delayed release(DR/EC) 20 mg PO QAM RF: 0 losartan [Cozaar] 100 mg tablet 100 mg PO QAM RF: 0 Discharge Orders: Discharge Order (Routine); Ordered 04/07/20 Ordered By: Jori Moon Admission Data Admit Date/Time: 04/06/20 13:41 Attending Provider: Jori Moon Admit Provider: Susanne Cardona Primary Care Provider: Antonieta Pruitt Other Providers: Susanne Cardoan ; Ward Coats Other Interventions: Discharge Summary Assessment (RN) Last Done: 04/07/20 13:07 DC Date/Time DO NOT enter until pt leaves facility: 04/07/20 13:20 Coding Level of Care Code D/C Day Management >30 mins Diagnoses Atypical chest pain R07.89 Acid reflux disease K21.9 Hyperlipidemia E78.5 Hypertension I10 Idiopathic diffuse interstitial pulmonary fibrosis J84.112 Vitamin B12 deficiency E53.8 DVT prophylaxis Z29.9 Time Spent (min) 32
== END 2020-04-07 13:20 | disposition home or self-care (01) ==
LOC: ED 10:05 → 2N 10:05 → SUATTDRO 13:41 → 2N 16:47

== ENCOUNTER 2020-08-19 06:30 | Inpatient (IN) ==
--- NOTE | 2020-07-09 15:43 | PAT Medication Instructions ---
Medication Instructions Date of Service July 09, 2020 Home Medications Medication Instructions Recorded acetaminophen 500 mg tablet 500 mg PO Q4H PRN #30 tab 08/16/19 losartan 100 mg tablet 100 mg PO QAM #90 tab 05/17/20 omeprazole 20 mg capsule,delayed 20 mg PO QAM #90 cap 05/17/20 release acetaminophen 500 mg tablet 500 mg PO Q4H PRN aspirin 81 mg PO QAM cyanocobalamin (vitamin B-12) 1,000 mcg PO QAM diphenhydramine-acetaminophen [Tylenol PM Extra Strength] 1 tab PO HS PRN losartan 100 mg tablet 100 mg PO QAM omeprazole 20 mg capsule,delayed release 20 mg PO QAM DO NOT take the morning of surgery cyanocobalamin (vitamin B-12) 1,000 mcg PO QAM losartan 100 mg tablet 100 mg PO QAM Take morning of surgery With a small sip of water, OTHERWISE NOTHING TO EAT OR DRINK AFTER MIDNIGHT: acetaminophen 500 mg tablet 500 mg PO Q4H PRN (okay to take up to 4 hours prior to surgery if needed) aspirin 81 mg PO QAM (unless otherwise directed by surgeon) omeprazole 20 mg capsule,delayed release 20 mg PO QAM Take evening before surgery acetaminophen 500 mg tablet 500 mg PO Q4H PRN (if needed) diphenhydramine-acetaminophen [Tylenol PM Extra Strength] 1 tab PO HS PRN (if needed) Other Notes If you have any questions please call us at [phone] or [phone] or [phone] or [phone]
--- NOTE | 2020-07-10 12:20 | Anesthesiology Consultation ---
Date of Service July 10, 2020 Assessment & Plan (1) Encounter for pre-operative examination: COVID Status: As of 07/10 assessment, patient denies travel to endemic area, known exposure/sick contacts, or symptoms of COVID19. Patient instructed that they and their household members must follow strict social distancing guidelines, wear a mask in public and avoid travel for 14 days prior to surgery. 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 He will not work once he has had the COVID test done. Preoperative COVID19 testing to be completed prior to surgery per surgeon's arrangements. Patient made aware to self-isolate as much as possible between COVID testing and surgery. Chart Review Chart Review: Acceptable Risk for Surgery and Patient seen in Pre Admission Testing Teaching & Discussion Instructed NPO after midnight before surgery, except medications with 15 cc of water. Medication instructions provided according to the PAT guidelines. History Surgery Operation Date: 08/19/20 07:00 Proposed Procedures p Right Total Knee Arthroplasty - Jasen Loera MD Height/Weight Height: 5 ft 8 in Weight: 83 kg Allergies Allergy/AdvReac Type Severity Reaction Status Date / Time atorvastatin Allergy Cramping Verified 07/09/20 09:53 of the Muscles celecoxib [From Celebrex] Allergy rash Verified 04/16/20 11:27 clopidogrel [From Plavix] Allergy hives Verified 04/16/20 11:27 oxycodone [From OxyContin] Allergy rash Verified 04/16/20 11:27 Medications Home Medications Medication Instructions Recorded Confirmed Last Taken acetaminophen 500 mg tablet 500 mg PO Q4H PRN #30 tab 08/16/19 07/09/20 Unknown aspirin 81 mg PO QAM 04/06/20 07/09/20 04/06/20 cyanocobalamin (vitamin B-12) 1,000 mcg PO QAM 04/06/20 07/09/20 04/06/20 diphenhydramine-acetaminophen 1 tab PO HS PRN 04/06/20 07/09/20 04/05/20 [Tylenol PM Extra Strength] losartan 100 mg tablet 100 mg PO QAM #90 tab 05/17/20 07/09/20 Unknown omeprazole 20 mg capsule,delayed 20 mg PO QAM #90 cap 05/17/20 07/09/20 Unknown release Past Medical History Medical History Acid reflux disease Adenomatous polyp of colon Hopkins's esophagus Esophageal stricture Generalized osteoarthritis of multiple sites History of transient ischemic attack 1989. Hyperlipidemia Hypertension Idiopathic diffuse interstitial pulmonary fibrosis HX OF AND NO LONGER A PROBLEM Exercise / Class Metabolic Activity II 4-5 Yardwork/Stairs/Walk up hill (Denies CP or SOB with 1 FOS, was previously very active walking but less now duee to knee pain) Past Family History Family History Father Amyotrophic lateral sclerosis Son Sarcoma Denies family history of Ovarian cancer Prostate cancer Myocardial infarction Breast cancer Colorectal cancer Past Surgical History Surgical History (Updated 07/14/20 @ 13:46 by Joaquin Pérez) Encounter for drainage of abscess 08/14/19 Dr. Bret Bernard- CT-guided percutaneous transgluteal placement of a 14 Pakistani diverticular abscess drainage catheter History of esophagogastroduodenoscopy (EGD) DILTATION S/P cataract extraction bilateral S/P colon resection 10/11/19 Dr. Marian Naylor- Laparoscopic hand-assisted anterior resection with coloproctostomy, flexible sigmoidoscopy, and transversus abdominus plane block. S/P colonoscopy S/P knee replacement left S/P lumbar fusion S/P revision of total knee left Past Anesthesia History No Hx of Anesthesia Complications and No Family Hx of Anesthesia Complications History of PONV No Hx of PONV and No Hx of Motion Sickness Social History Smoking Status: Never smoker tobacco type: cigars (occasionally) Do You Dip or Chew Tobacco: No Hx Alcohol Use: Yes Alcohol type: beer alcohol intake frequency: a few times a month Hx Substance Use: No substance use type: does not use Review of Systems Pt denies any recent chest pain, shortness of breath, palpitations, cough, fe jada, URI, or uncontrolled acid reflux. Physical Exam Vital Signs BP: 135/69 P: 76bpm SPO2: 95% RA T: 98.5 F R: 16 ENMT Mouth: + dentures (full upper) and + dental restorations (lower implants); no chipped teeth and no loose teeth Thyromental Distance: < 3.5 Finger Breadths (3) Mallampati Class: II Neck normal visual inspection and + facial hair (short thin mustache); neck extension not limited Respiratory normal respiratory effort Auscultation: + crackles (B/L bases, otherwise CTA) Cardiovascular Rate/Rhythm: regular rate and regular rhythm (with occ ectopic beat and compensatory pause) Heart Sounds: no murmur Extremities: no edema Testing Laboratory Results 07/10/20 12:30 07/10/20 12:30 PT 10.8 Seconds (9.0-12.0) 07/10/20 12:30 INR 1.0 (0.9-1.1) 07/10/20 12:30 APTT 25.9 Seconds (21.0-31.0) 07/10/20 12:30 Hemoglobin A1c 5.3 % (4.5-5.6) 07/10/20 12:30 Urine Color Yellow 07/10/20 12:30 Urine Appearance Clear (Clear) 07/10/20 12:30 Urine pH 6.0 (4.5-7.5) 07/10/20 12:30 Ur Specific Nora 1.008 (1.000-1.030) 07/10/20 12:30 Urine Protein Negative (Negative) 07/10/20 12:30 Urine Glucose (UA) Negative (Negative) 07/10/20 12:30 Urine Ketones Negative (Negative) 07/10/20 12:30 Urine Nitrite Negative (Negative) 07/10/20 12:30 Ur Leukocyte Esterase Negative (Negative) 07/10/20 12:30 Blood Type O Positive 07/10/20 12:30 Antibody Screen NEGATIVE 07/10/20 12:30 Electrocardiogram Date: 04/07/20 Findings: + SB @ (58bpm) Chest X-Ray Date: 04/06/20 Chronic basilar interstitial change. No acute process. Echocardiogram Date: 04/06/20 EF: 55-60% Normal LV size with mild concentric LVH. No regional wall motion abnormalities. Normal RV size and function. No significant valvular pathology. No prior studies for comparison.
[2020-07-10 13:05] LABS: Appearance Urine Clear (Clear); Bilirubin Urine Negative (Negative); Blood Urine Negative (Negative); Color Urine Yellow; Glucose Urine UA Negative (Negative); Ketones Urine Negative (Negative); Leukocyte Esterase Urine Negative (Negative); Nitrite Urine Negative (Negative); Protein Urine Negative (Negative); Specific Gravity Urine 1.008 (1.000-1.030); Urobilinogen Urine Negative (Negative)
[2020-07-10 13:06] LABS: Basophils # (auto) 0.04 K/uL (0-0.2); Basophils % (auto) 0.6 %; Eosinophils # (auto) 0.18 K/uL (0-0.5); Eosinophils % (auto) 2.5 %; Hematocrit (blood only) 43.5 % (42-52); Hemoglobin 14.5 g/dL (14.0-18.0); Immature Granulocytes # (auto) 0.01 K/uL (0.00-0.02); Immature Granulocytes % (auto) 0.1 %; Lymphocytes # (auto) 2.07 K/uL (1.2-3.4); Lymphocytes % (auto) 28.9 %; Mean Corpuscular Hemoglobin 31.9 pg (25-34); Mean Corpuscular Hgb Conc 33.3 g/dL (32-36); Mean Corpuscular Volume 95.8 fL (80-100); Mean Platelet Volume 9.5 fL (7.4-10.4); Monocytes # (auto) 0.61 K/uL (0.11-0.59); Monocytes % (auto) 8.5 %; Neutrophils # (auto) 4.25 K/uL (1.4-6.5); Neutrophils % (auto) 59.4 %; Platelet Count 247 K/uL (130-400); RDW Coefficient of Variation 13.5 % (11.5-14.5); RDW Standard Deviation 47.8 fL (36.4-46.3); Red Blood Count 4.54 M/uL (4.7-6.1); White Blood Count 7.16 K/uL (4.8-10.8)
[2020-07-10 13:13] LABS: Albumin Level 3.6 gm/dl (3.4-5.0); BUN Creatinine Ratio 11.4 (10-20); Calcium 8.6 mg/dl (8.5-10.1); Creatinine Clr Calc Pharmacy 73.8 ml/min; Est GFR (Non-African American) 82.9; Potassium 3.7 mmol/L (3.5-5.1)
[2020-07-10 13:21] LABS: Partial Thromboplastin Ratio 0.9; Partial Thromboplastin Time 25.9 Seconds (21.0-31.0); Prothrombin Time 10.8 Seconds (9.0-12.0)
[2020-07-10 13:34] LABS: Estimated Average Glucose 105 mg/dl; Hemoglobin A1C 5.3 % (4.5-5.6)
--- NOTE | 2020-08-18 20:53 | History and Physical Report ---
DATE OF ADMISSION: 08/19/2020 CHIEF COMPLAINT: Chronic right knee pain. HISTORY OF PRESENT ILLNESS: This is a 75-year-old male patient of Dr. Loera'mariaelena complaining of chronic right knee pain, longstanding now, progressively getting worse. The patient has failed conservative treatment including intra-articular injections, home exercise program, and the use of a brace. The patient has been diagnosed with end-stage osteoarthritis per clinical and radiographic exams. The patient has increased pain with weightbearing activities and his pain does interfere with his activities of daily living. The patient wished to proceed with a right total knee arthroplasty. PAST MEDICAL HISTORY: Hypertension, rheumatoid arthritis, osteoarthritis, back problems, and acid reflux. SOCIAL HISTORY: Nonsmoker. Occasional drinker. PAST SURGICAL HISTORY: Left total knee arthroplasty, back surgery x2 and colon surgery. FAMILY HISTORY: Noncontributory. REVIEW OF SYSTEMS: Chronic right knee pain, otherwise denies any shortness of breath, chest pain, nausea, vomiting, or any joint complaints. MEDICATIONS: Losartan 100 mg daily, aspirin 81 mg daily. ALLERGIES: No known drug allergies. PHYSICAL EXAMINATION: GENERAL: Well-developed, well-nourished 75-year-old male in no acute distress. He is alert and oriented x3 and pleasant. HEENT: Normocephalic, atraumatic. Extraocular motions are intact. Pupils are equal and reactive to light. HEART: Regular rate and rhythm, no murmurs. LUNGS: Clear. ABDOMEN: Soft, nontender, bowel sounds present. EXTREMITIES: Right knee medial joint line tenderness, varus deformity. Range of motion 0-125. Positive effusion, positive crepitation, 5/5 strength. NEUROLOGIC: Neurovascularly intact right lower extremity. DIAGNOSES: Right knee end-stage osteoarthritis, hypertension, rheumatoid arthritis, osteoarthritis, back problems, and acid reflux. PLAN: The patient was advised of his diagnosis. Indications, risks, benefits, postop course have all been reviewed. The patient wished to proceed with a right total knee arthroplasty. Necessary consent forms, preoperative testing, and clearances will be obtained.
[~2020-08-19 06:30] MED LIST changes: +ACETAMINOPHEN 500 MG TAB PO SCH; -ASPI325T39 PO; +BUPIVACAINE 0.5 % 5 MG/1 ML PF 10ML VIAL ONE; +BUPIVACAINE/EPINEPHRINE 0.25% 1:200,000 30 ML VIAL ONE; +FAMOTIDINE 20 MG TAB PO SCH; +GABAPENTIN 300 MG CAP PO SCH; -LOSA1TAB38 PO; +LR 500ML BOLUS, THEN 15ML/HR IV SCH; +METOCLOPRAMIDE HCL 10 MG TABLET PO SCH; -PRLSR20 PO; +ROPIVACAINE 0.5% HCL/PF 150 MG, BUPIVACAINE 0.5% MPF 30 ML, EPINEPHrine 30MG/30ML (OR U... INSTIL SCH; +TRANEXAMIC ACID 1,000 MG **IV Intra-op IV SCH; +TRANEXAMIC ACID 1,000 MG **IV Pre-op IV SCH; +ceFAZolin 2000MG 2,000 MG/15 ML SYR IV SCH; +dexAMETHasone 4 MG TAB PO SCH
--- NOTE | 2020-08-19 07:10 | History & Physical Bridge Note ---
Date of Service August 19, 2020 History & Physical Bridge Note I have examined the patient, reviewed the History & Physical and in the interval since the performance of the History & Physical I have noted the following changes of clinical significance: no changes noted
[2020-08-19] MEDS ORDERED: PROPOFOL IV EMULSION 10 MG/ML 20 ML VIAL IV ONE ×3 (07:40→09:54)
[2020-08-19] MEDS ORDERED: fentaNYL citrate 100 MCG/2 ML VIAL ONE (07:40)
[2020-08-19] MEDS ORDERED: LIDOCAINE HCL 2% 2 ML VIAL/AMP(20MG/ML) INFIL ONE (07:40)
[2020-08-19] MEDS ORDERED: MIDAZOLAM HCL 1 MG/ML 2ML VIAL ONE (07:41)
[2020-08-19] MEDS ORDERED: ORTHO JOINT ANESTHETIC ONE (07:42)
[2020-08-19] MEDS ORDERED: BACITRACIN INJ 50,000 UNIT VIAL ONE (07:42)
[2020-08-19] MEDS ORDERED: HYDROmorphone INJ 2 MG/ML SYR/VIAL IV PRN (08:31)
[2020-08-19] MEDS ORDERED: ePHEDrine sulfate 50 MG/ML AMP IV PRN (08:31)
[2020-08-19] MEDS ORDERED: fentaNYL citrate 100 MCG/2 ML VIAL IV PRN (08:31)
[2020-08-19] MEDS ORDERED: ONDANSETRON INJ 2 MG/ML 2 ML VIAL IV PRN ×2 (08:31→12:10)
[2020-08-19] MEDS ORDERED: ATROPINE SULFATE 0.1 MG/ML 10ML SYR IV PRN (08:31)
--- NOTE | 2020-08-19 10:27 | Operative Report ---
Post Operative Report Pre & Post Diagnosis Operation Date: 08/19/20 08:40 Pre-Op Diagnosis: Right Knee Osteoarthritis Post-Op Diagnosis: Right Knee Osteoarthritis I identified the patient and participated in the time-out.: Yes Procedure Operation Date: 08/19/20 08:40 Actual Procedures p Right Total Knee Arthroplasty(Right) - Jasen Loera MD Surgeon Jasen Loera MD Cotton Classer Reginald GRIMM Estimated Blood Loss 5 Findings Consistent with Post-Op Diagnosis Specimens Bone cuts Drains 2 Hemovac Anesthesia Type MAC Spinal Regional Complications none Disposition Accompanied Patient To Recovery: No Disposition: Recovery Room Indications 75-year-old male with chronic progressive right knee osteoarthritis [id number] medial compartment with varus knee. Patient has successful left knee replacement 22 years ago. Description of Procedure Patient was taken to the operating room placed supine on the operating table and anesthetized under spinal MAC regional anesthesia. Exam under anesthesia demonstrated 10 degree flexion contracture with good flexion to 130 degrees with no instability and a varus knee. A pneumatic tourniquet was placed about the thigh of the right lower extremity. The right lower extremity was prepped and draped in usual fashion. The leg was elevated exsanguinated with an Esmarch bandage and the pneumatic was raised to 300 mm mercury. An anterior incision was made across the right knee. The skin was incised longitudinally subcutaneous flaps were elevated and an incision was made through the medial retinaculum extending up into the mid third of the quadriceps tendon and extended down to the medial tibial tubercle. Intra-articular findings demonstrated medial compartment OA with eburnated bone [id number] medial compartment varus knee. The knee was exposed by excising the infrapatellar fat pad, excising the meniscal remnants and anterior cruciate ligament. Any inflamed synovial tissue was resected. The fat pad over the anterior femur was resected for placement of the component in that area. The lateral synovial bands were release. The femur was exposed. The custom femoral cutting block was pinned in position. The distal femoral cutting block was applied. The distal femoral cut was made with the oscillating saw. The size 12, 4-in-1 cutting block was placed. The anterior and posterior chamfer cuts were made. The knee was extended and a subperiosteal peel lateral release was performed around the patella. The patella width was measured and width was reproduced using freehand cut technique. The 38 x 9.5 millimeter symmetrical patella was used. 3 drill holes are made for the pegs. The tibia was exposed. A custom tibial cutting block was positioned and drill holes were made for the cutting guide. Cutting guide was placed and the proximal cut was made with the oscillating saw. All osteophytes were resected. The lamina helicopter pilot instructor was used to assess ligamentous balance and the ligaments were balanced in extension and flexion. The tibia was reexposed and measured for a size G tibial component. This was externally rotated in line with the tibial tubercle and the fixation pins were drilled. The proximal tibia was fashioned with the drill and punch. The size 12 CR femoral trial was inserted. The trial MC inserts were used. The 11 mm insert gave balanced ligaments through full range of motion. The patella tracked centrally. the trials were removed. The orthomix anesthetic cocktail was injected per protocol. The knee was then copiously irrigated with pulsatile lavage antibiotic solution with bacitracin. The final components were cemented with Simplex cement. The final components were persona N[employer]el [employer] 12 standard CR right femur, G tibia, 11 mm MC polyethylene tibia component, 38 x 9.5 symmetrical patella. After the cement cured with the knee in full extension the Betadine soak was used per protocol. The knee joint was copiously irrigated with antibiotic solution with bacitracin. 2 drains were brought out laterally and connected to a Hemovac. The quadriceps tendon and medial retinaculum were closed with interrupted [id number] #1 Vicryl sutures. The knee was taken through a full range of motion and repair was secure. The subcutaneous tissues were closed with 2-0 Vicryl sutures and skin was closed with brandon. Sterile dressings were applied and the patient tolerated the procedure well. Reginald GRIMM my physician civil engineering assistant, assisted in soft tissue retraction instrument management leg positioning the closure and will participate in the postoperative care of the patient. I attest to the content of the Intraoperative Record and any orders documented therein. Any exceptions are noted below.
--- NOTE | 2020-08-19 11:26 | XRay Report ---
RIGHT KNEE 2 VIEWS History: Right total knee arthroplasty. Degenerative arthritis. Postop. FINDINGS: The patient is status post a right total knee arthroplasty. The hardware is intact. No frac ture or dislocation. Skin brandon and surgical drains are in place. IMPRESSION: Right total knee arthroplasty. No evidence for hardware complication. ACT 112: Negative or not required by law. Electronically signed by: Wisam Reid M.D. 08/19/2020 11:25 AM
--- NOTE | 2020-08-19 11:26 | Anesthesiology Progress Note ---
Date of Service August 19, 2020 Anesthesia Post Procedure Vital Signs Vital Signs: Temp Pulse Pulse Resp BP BP Pulse Ox 08/19/20 11:20 72 22 119/80 95 08/19/20 11:10 78 19 123/58 L 99 08/19/20 11:00 36.5 C 82 19 133/67 99 08/19/20 07:56 36.6 C 61 20 128/85 97 08/19/20 07:12 36.6 C 67 20 157/99 H 96 Pain Intensity Right Knee: Pain Intensity: 6 Transfer of Care Handoff Completed per policy Notes Mental Status: alert / awake / arousable and participated in evaluation Patient Amnestic to Procedure: Yes Nausea / Vomiting: adequately controlled Pain: adequately controlled Airway Patency, RR, SpO2: stable & adequate BP & HR: stable & adequate Hydration State: stable & adequate Anesthetic Complications: no major complications apparent and Pt Satisfied with anesthetic care
[2020-08-19] MEDS ORDERED: SODIUM CHLORIDE 0.9% 1000ML 1,000 ML IV SCH (12:10)
[2020-08-19] MEDS ORDERED: HYDROmorphone INJ 0.5 MG/0.5 ML SYR IV PRN (12:10)
[2020-08-19] MEDS ORDERED: NALOXONE HCL 0.4 MG/1 ML VIAL/CARP IV PRN (12:10)
[2020-08-19] MEDS ORDERED: bisacodyL 10 MG SUPP PR PRN (12:10)
[2020-08-19] MEDS ORDERED: MAGNESIUM HYDROXIDE SUSP 30 ML UDC PO PRN (12:10)
--- NOTE | 2020-08-19 14:28 | Hospitalist Consultation ---
Date of Consultation August 19, 2020 Assessment & Plan (1) Arthritis of right knee: s/p right TKA with Dr. Loera check labs in the AM he is doing great, no dyspnea, he is off oxygen, encourage deep breathing DVT prophylaxis, pain control, d/c planning per ortho (2) Hypertension: BP stable continue Losartan (3) Hyperlipidemia: diet controlled (4) Acid reflux disease: PPI (5) Idiopathic diffuse interstitial pulmonary fibrosis: lungs clear, no oxygen, no distress History of Present Illness Reason for Consultation: medical management Requesting Physician: Luz Maria Attending Physician: Jasen Loera MD History of Present Illness 75 yo male who is status post right knee arthroplasty for chronic arthritis that failed conservative therapy. Pain is well controlled, he ambulated with therapy, he is eating well, no dyspnea, no chest pain, no cough, no fever. He said he has had two procedures on his left knee, tolerated them well, never had an issue. Reviewed history, nothing significant in terms of coronary disease, DM, renal disease. Will check labs in the AM. Allergies Allergy/AdvReac Type Severity Reaction Status Date / Time atorvastatin Allergy Intermediate Cramping Verified 08/19/20 07:02 of the Muscles celecoxib [From Celebrex] Allergy Mild rash Verified 08/19/20 07:02 clopidogrel [From Plavix] Allergy Mild hives Verified 08/19/20 07:02 oxycodone [From OxyContin] Allergy Mild rash Verified 08/19/20 07:02 Home Medications Home Medications Medication Instructions Recorded Confirmed Type acetaminophen 500 mg tablet 500 mg PO Q4H PRN #30 tab 08/16/19 08/19/20 Rx aspirin 81 mg PO QAM 04/06/20 08/19/20 History cyanocobalamin (vitamin B-12) 1,000 mcg PO QAM 04/06/20 08/19/20 History diphenhydramine-acetaminophen 1 tab PO HS PRN 04/06/20 08/19/20 History [Tylenol PM Extra Strength] losartan 100 mg tablet 100 mg PO QAM #90 tab 05/17/20 08/19/20 Rx omeprazole 20 mg capsule,delayed 20 mg PO QAM #90 cap 05/17/20 08/19/20 Rx release fiber 1 tab PO DAILY 08/19/20 08/19/20 History Patient History Medical History Acid reflux disease Adenomatous polyp of colon Hopkins's esophagus Esophageal stricture Generalized osteoarthritis of multiple sites History of transient ischemic attack 1989. Hyperlipidemia Hypertension Idiopathic diffuse interstitial pulmonary fibrosis Surgical History Encounter for drainage of abscess 08/14/19 Dr. Bret Bernard- CT-guided percutaneous transgluteal placement of a 14 Welsh diverticular abscess drainage catheter History of esophagogastroduodenoscopy (EGD) DILTATION S/P cataract extraction bilateral S/P colon resection 10/11/19 Dr. Marian Naylor- Laparoscopic hand-assisted anterior resection with coloproctostomy, flexible sigmoidoscopy, and transversus abdominus plane block. S/P colonoscopy S/P knee replacement left S/P lumbar fusion S/P revision of total knee left Family History Father Amyotrophic lateral sclerosis Son Sarcoma Denies family history of Ovarian cancer Prostate cancer Myocardial infarction Breast cancer Colorectal cancer Social History Smoking Status: Current some day smoker Tobacco Type: Cigarettes Second Hand Exposure: Yes; Do You Dip or Chew Tobacco: No; Tobacco Cessation Education Requested by Patient: No Hx Alcohol Use: Yes Alcohol type: beer Alcohol Intake Frequency Comment: 1-2 beers Hx Substance Use: No Preferred Language: Togolese Communication Ability: Effective Visual Impairment: Partially Limited Hearing Ability: Use of Hearing Aid Web Services Professional Required: No Beliefs That Will Affect Care: None marital status: Current Living Situation: Spouse current occupational status: employed and retired 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 Other Information That Helps Us Care for You: No Feels Safe at Home: Yes Safety Concerns: Feels Safe At This Time Childhood Exposure to Second-Hand Smoke: No caffeine: Yes (coffee) during the past year weight has: remained stable Dental Care, Regularly: Yes Physical Activity Frequency: Daily Physical Activity Frequency Comment: working/walking Seatbelt Use: always Sunscreen Use: No Do you think of yourself as: straight/heterosexual Assistive Devices: Walker Review of Systems Review of Systems: All systems reviewed & are unremarkable except as noted in Subjective Musculoskeletal: + joint pain (right knee) Physical Exam Constitutional: WD/WN, vitals as above Neck: trachea midline, no thyromegaly Respiratory: normal respiratory effort, lungs clear to auscultation Cardiovascular: RRR, no murmur, no edema Gastrointestinal (Abdomen): normal bowel sounds, soft, nontender, no hepatosplenomegaly Musculoskeletal: Head/Neck/Chest: normocephalic, head atraumatic and neck supple Extremities: strength 5/5 throughout; + extremities abnormal to inspection (right knee wrapped), no cyanosis, no clubbing and no petechiae Skin: no rashes, warm and dry Neurologic: patellar DTR's 2+ bilat, sensation intact and PERRL, EOMI, accommodation nl, no face palsy, no dysarthria Psychiatric: A+Ox3, euthymic affect Lymphatic: no cervical or axillary lymphadenopathy Results & Data Results & Data ([facility]) Vital Signs (Past 12 Hours) Vital Signs Temp Pulse Pulse Resp BP BP Pulse Ox 08/19/20 13:54 36.5 C 77 18 153/86 H 95 08/19/20 12:55 36.3 C L 67 18 151/73 H 97 08/19/20 12:23 36.7 C 71 17 151/82 H 96 08/19/20 11:55 36.3 C L 68 18 117/73 95 08/19/20 11:40 36.8 C 69 18 128/71 96 08/19/20 11:30 36.8 C 64 21 132/75 96 08/19/20 11:20 72 22 119/80 95 08/19/20 11:10 78 19 123/58 L 99 08/19/20 11:00 36.5 C 82 19 133/67 99 08/19/20 07:56 36.6 C 61 20 128/85 97 08/19/20 07:12 36.6 C 67 20 157/99 H 96 PG Care Time/CCT Total # of Minutes Spent Total Time Spent with Patient: Total time spent is greater than 50% in coordination of care (as documented) at patient's floor/unit and/or counseling patient: Coding Level of Care Code 76947 Inpt Consult Level 2 Diagnoses Arthritis of right knee M17.11 Hypertension I10 Hyperlipidemia E78.5 Acid reflux disease K21.9 Idiopathic diffuse interstitial pulmonary fibrosis J84.112
[2020-08-19] MEDS: ceFAZolin 2000MG 2,000 MG/15 ML SYR IV SCH ×2 (16:00→23:11)
[2020-08-19] MEDS: FERROUS GLUCONATE 324 MG TAB PO SCH (17:47)
[2020-08-19] MEDS: ASPIRIN 81 MG ECTAB PO SCH (19:57)
[2020-08-19] MEDS: DOCUSATE SODIUM 100 MG CAP PO SCH (19:57)
[2020-08-19] MEDS: SENNA 8.6 MG TAB PO SCH (19:58)
[2020-08-19] MEDS ORDERED: MELATONIN 3 MG TAB PO PRN (20:22)
[2020-08-19] MEDS: HYDROCODONE/ACETAMOPHEN 5/325MG TAB PO PRN (21:36)
[2020-08-20] MEDS: ACETAMINOPHEN 325 MG TAB PO PRN (05:42)
[2020-08-20 06:12] LABS: Hematocrit (blood only) 38.8 % (42-52); Hemoglobin 13.1 g/dL (14.0-18.0); Mean Corpuscular Hgb Conc 33.8 g/dL (32-36); Mean Corpuscular Volume 94.9 fL (80-100); Mean Platelet Volume 9.8 fL (7.4-10.4); Platelet Count 249 K/uL (130-400); RDW Coefficient of Variation 13.6 % (11.5-14.5); RDW Standard Deviation 46.7 fL (36.4-46.3); Red Blood Count 4.09 M/uL (4.7-6.1); White Blood Count 13.75 K/uL (4.8-10.8)
[2020-08-20 06:37] LABS: BUN Creatinine Ratio 13.2 (10-20); Calcium 8.5 mg/dl (8.5-10.1); Creatinine Clr Calc Pharmacy 67.3 ml/min; Est GFR (Non-African American) 75.9; Potassium 4.3 mmol/L (3.5-5.1)
--- NOTE | 2020-08-20 08:15 | Orthopedic Progress Note ---
Date of Service August 20, 2020 Assessment & Plan (1) Arthritis of right knee: POD #1, Right TKA PT/ OT DVT proph- TEDS, ASA D/C planning- Home w OPPT As per medicine Drain output 550cc's so will keep him another day to monitor. Admission and Anticipated Discharge Date Admission Date: August 19, 2020 Subjective POD #1, Doing well. Denies SOB, CP, N/V. Pain controlled well. Wishes OPPT on Discharge Physical Exam Physical Exam: Right knee dressings c/d/i, no drainage. Toes/ ankle mobile. No calf tenderness. A&Ox3. Results & Data ([facility]) Vital Signs (Past 12 Hours) Vital Signs Temp Pulse Resp BP Pulse Ox 08/20/20 07:20 36.6 C 68 17 142/80 H 98 08/20/20 03:31 36.5 C 61 16 133/74 98 08/19/20 22:57 36.7 C 67 16 131/72 94
[2020-08-20] MEDS: DOCUSATE SODIUM 100 MG CAP PO SCH ×3 (08:27→20:32)
[2020-08-20] MEDS: ASPIRIN 81 MG ECTAB PO SCH ×2 (08:27→20:32)
[2020-08-20] MEDS: FERROUS GLUCONATE 324 MG TAB PO SCH ×2 (08:28→16:25)
[2020-08-20] MEDS: LOSARTAN POTASSIUM 50 MG TAB PO SCH (08:28)
[2020-08-20] MEDS: MULTIVITAMIN TAB PO SCH (08:29)
[2020-08-20] MEDS: PANTOprazole 40 MG TAB PO SCH (08:29)
[2020-08-20] MEDS: HYDROCODONE/ACETAMOPHEN 5/325MG TAB PO PRN ×3 (10:44→22:22)
[2020-08-20] MEDS: SENNA 8.6 MG TAB PO SCH (20:33)
--- NOTE | 2020-08-20 22:18 | Hospitalist Progress Note ---
Date of Service August 20, 2020 Assessment & Plan (1) Arthritis of right knee: s/p right TKA with Dr. Loera pain is well controlled, ambulating increased drainage from hemovac but Hb is 13 watch overnight per ortho no dyspnea, he is off oxygen, encourage deep breathing DVT prophylaxis, pain control, d/c planning per ortho medicine will sign off, he is stable from our perspective, okay to discharge (2) Hypertension: BP stable continue Losartan Cr and electrolytes stable today (3) Hyperlipidemia: diet controlled (4) Acid reflux disease: PPI (5) Idiopathic diffuse interstitial pulmonary fibrosis: lungs clear, no oxygen, no distress Admission and Anticipated Discharge Date Admission Date: August 20, 2020 Subjective patient doing great, no pain, he is walking eating well, breathing well, no chest pain he is having a lot of bloody drainage from hemovac Hb is 13 ortho will watch him over night due to the drainage BMP is stable, vitals stable Review of Systems Review of Systems: All systems reviewed & are unremarkable except as noted in Subjective Musculoskeletal: + joint pain (right knee pain) Physical Exam Constitutional: WD/WN, vitals as above Neck: trachea midline, no thyromegaly Respiratory: normal respiratory effort, lungs clear to auscultation Cardiovascular: RRR, no murmur, no edema Gastrointestinal (Abdomen): normal bowel sounds, soft, nontender, no hepatosplenomegaly Musculoskeletal: Head/Neck/Chest: normocephalic, head atraumatic and neck supple Extremities: strength 5/5 throughout; + extremities abnormal to inspection (right knee wrapped), no cyanosis, no clubbing and no petechiae Skin: no rashes, warm and dry Neurologic: patellar DTR's 2+ bilat, sensation intact and PERRL, EOMI, accommo dation nl, no face palsy, no dysarthria Psychiatric: A+Ox3, euthymic affect Lymphatic: no cervical or axillary lymphadenopathy Results & Data Results & Data ([facility]) Vital Signs (Past 12 Hours) Vital Signs Temp Pulse Resp BP BP Pulse Ox 08/20/20 15:51 36.8 C 66 16 125/76 97 08/20/20 11:41 36.7 C 65 17 142/71 H 96 Laboratory Results Laboratory Results - last 24 hr 08/20/20 08/20/20 05:12 05:12 WBC 13.75 H RBC 4.09 L Hgb 13.1 L Hct 38.8 L MCV 94.9 MCH 32.0 MCHC 33.8 RDW Std Deviation 46.7 H RDW Coeff of Rosy 13.6 Plt Count 249 MPV 9.8 Sodium 139 Potassium 4.3 Chloride 106 Carbon Dioxide 29 Anion Gap 4.0 BUN 13 Creatinine 0.96 Est Cr Clr Drug Dosing 67.3 Est GFR ( Amer) 88.0 Est GFR (Non-Af Amer) 75.9 BUN/Creatinine Ratio 13.2 Glucose 87 Calcium 8.5 Medications Administered Current Inpatient Medications Acetaminophen (Acetaminophen 325 Mg Tab) 650 mg PO Q4H PRN PRN Reason: Pain Stop: 09/18/20 20:10 Last Admin: 08/20/20 05:42 Dose: 650 mg Documented by: Hydrocodone Bitart/Acetaminophen (Hydrocodone/Acetamophen 5/325mg Tab) 1 - 2 tab PO Q4H PRN PRN Reason: Pain or Pre PT Stop: 09/02/20 12:09 Last Admin: 08/20/20 16:25 Dose: 1 tab Documented by: Aspirin (Aspirin 81 Mg Ectab) 81 mg PO BID [facility] Stop: 09/18/20 20:59 Last Admin: 08/20/20 20:32 Dose: 81 mg Documented by: Bisacodyl (Bisacodyl 10 Mg Supp) 10 mg [place] DAILY PRN PRN Reason: Constipation Stop: 09/18/20 12:09 Docusate Sodium (Docusate Sodium 100 Mg Cap) 100 mg PO BID [facility] Stop: 09/18/20 20:59 Last Admin: 08/20/20 20:32 Dose: Not Given Documented by: Ferrous Gluconate (Ferrous Gluconate 324 Mg Tab) 324 mg PO BIDM [facility] Stop: 09/18/20 16:59 Last Admin: 08/20/20 16:25 Dose: 324 mg Documented by: Hydromorphone HCl (Hydromorphone Inj 0.5 Mg/0.5 Ml Syr) 0.5 mg IV Q4H PRN PRN Reason: Pain or Pre PT Stop: 09/02/20 12:09 Losartan Potassium (Losartan Potassium 50 Mg Tab) 100 mg PO QAM [facility] Stop: 09/19/20 08:59 Last Admin: 08/20/20 08:28 Dose: 100 mg Documented by: Magnesium Hydroxide (Magnesium Hydroxide Susp 30 Ml Udc) 30 ml PO Q6H PRN PRN Reason: Constipation Stop: 09/18/20 12:09 Melatonin (Melatonin 3 Mg Tab) 3 mg PO HS PRN PRN Reason: Sleep Stop: 09/18/20 20:21 Multivitamins (Multivitamin Tab) 1 tab PO QAM [facility] Stop: 09/19/20 08:59 Last Admin: 08/20/20 08:29 Dose: 1 tab Documented by: Naloxone HCl (Naloxone Hcl 0.4 Mg/1 Ml Vial/Carp) 0.1 mg IV Q5M PRN PRN Reason: Oversedation/Resp Depression Stop: 09/18/20 12:09 Ondansetron HCl (Ondansetron Inj 2 Mg/Ml 2 Ml Vial) 4 mg IV Q6H PRN PRN Reason: Nausea And Vomiting Stop: 09/18/20 12:09 Pantoprazole Sodium (Pantoprazole 40 Mg Tab) 40 mg PO QAM [facility] Stop: 09/19/20 08:59 Last Admin: 08/20/20 08:29 Dose: 40 mg Documented by: Sennosides (Senna 8.6 Mg Tab) 17.2 mg PO HS YEVGENIY Stop: 09/18/20 20:59 Last Admin: 08/20/20 20:33 Dose: Not Given Documented by: PG Care Time/CCT Total # of Minutes Spent Total Time Spent with Patient: Total time spent is greater than 50% in coordination of care (as documented) at patient's floor/unit and/or counseling patient: Coding Level of Care Code 66055 Subseq Hosp Care Lvl 2 Diagnoses Arthritis of right knee M17.11 Hypertension I10 Hyperlipidemia E78.5 Acid reflux disease K21.9 Idiopathic diffuse interstitial pulmonary fibrosis J84.112
[2020-08-21] MEDS: HYDROCODONE/ACETAMOPHEN 5/325MG TAB PO PRN (06:31)
[2020-08-21] MEDS: FERROUS GLUCONATE 324 MG TAB PO SCH (08:50)
[2020-08-21] MEDS: ASPIRIN 81 MG ECTAB PO SCH (08:50)
[2020-08-21] MEDS: PANTOprazole 40 MG TAB PO SCH (08:51)
[2020-08-21] MEDS: LOSARTAN POTASSIUM 50 MG TAB PO SCH (08:51)
[2020-08-21] MEDS: DOCUSATE SODIUM 100 MG CAP PO SCH (08:51)
[2020-08-21] MEDS: MULTIVITAMIN TAB PO SCH (08:51)
--- NOTE | 2020-08-21 09:41 | Orthopedic Progress Note ---
Date of Service August 21, 2020 Assessment & Plan (1) Arthritis of right knee: POD #2 Right TKA PT/ OT DVT proph- TEDS, ASA D/C planning- Home w OPPT As per medicine Plan for discharge to home today after physical therapy. Admission and Anticipated Discharge Date Admission Date: August 20, 2020 Subjective Postop day 2 Patient sitting up in bed awake and alert. States he is a little tired this morning. Had some discomfort in the knee but pain medications are helping. Denies any shortness of breath, chest pain, lightheadedness. Dates he is hoping to go home today. Physical Exam Physical Exam: Lan dressing is clean, dry, and intact. Calves are soft nontender. Neurovascular is intact. Toes are mobile. Results & Data ([facility]) Vital Signs (Past 12 Hours) Vital Signs Temp Pulse Resp BP Pulse Ox 08/21/20 07:15 36.9 C 76 18 143/73 H 96 08/20/20 23:42 37.0 C 70 20 126/71 95
[2020-08-21] MEDS: ACETAMINOPHEN 325 MG TAB PO PRN (11:23)
--- NOTE | 2020-08-26 11:19 | Discharge Summary ---
Date of Service August 26, 2020 Admission HPI Per Admitting Provider This is a 75-year-old male patient of Dr. Loera's complaining of chronic right knee pain, longstanding now, progressively getting worse. The patient has failed conservative treatment including intra-articular injections, home exercise program, and the use of a brace. The patient has been diagnosed with end-stage osteoarthritis per clinical and radiographic exams. The patient has increased pain with weightbearing activities and his pain does interfere with his activities of daily living. The patient wished to proceed with a right total knee arthroplasty. Admission Exam Per Admitting Provider PHYSICAL EXAMINATION: GENERAL: Well-developed, well-nourished 75-year-old male in no acute distress. He is alert and oriented x3 and pleasant. HEENT: Normocephalic, atraumatic. Extraocular motions are intact. Pupils are equal and reactive to light. HEART: Regular rate and rhythm, no murmurs. LUNGS: Clear. ABDOMEN: Soft, nontender, bowel sounds present. EXTREMITIES: Right knee medial joint line tenderness, varus deformity. Range of motion 0-125. Positive effusion, positive crepitation, 5/5 strength. NEUROLOGIC: Neurovascularly intact right lower extremity. Principal Diagnosis Right knee osteoarthritis Discharge Exam Postop day 2 Patient sitting up in bed awake and alert. States he is a little tired this morning. Had some discomfort in the knee but pain medications are helping. Denies any shortness of breath, chest pain, lightheadedness. Dates he is hoping to go home today. Physical Exam Physical Exam: Lan dressing is clean, dry, and intact. Calves are soft nontender. Neurovascular is intact. Toes are mobile. Discharge Data Allergies Allergy/AdvReac Type Severity Reaction Status Date / Time atorvastatin Allergy Intermediate Cramping Verified 08/19/20 07:02 of the Muscles celecoxib [From Celebrex] Allergy Mild rash Verified 08/19/20 07:02 clopidogrel [From Plavix] Allergy Mild hives Verified 08/19/20 07:02 oxycodone [From OxyContin] Allergy Mild rash Verified 08/19/20 07:02 Consultations 08/14/20 15:23 Consult Hospitalist Routine 08/19/20 12:10 Consult Case Management - Discharge Planning Routine Procedures Performed Operation Date: 08/19/20 08:40 Actual Procedures p Right Total Knee Arthroplasty(Right) - Jasen Loera MD Ordered Studies 08/19/20 05:00 US - OR guided needle placemen Routine Hospital Course (1) Arthritis of right knee: Patient was admitted on the above-noted date and had the above-noted surgery performed which she tolerated well.On the first postoperative day the patient was doing well. Denies shortness of breath, chest pain, nausea or vomiting. Pain was controlled. Patient was planning on outpatient PT upon discharge. Dressings were clean dry and intact. Neurovascular is intact. Toes are mobile. Calves were soft and nontender. Vital signs were stable and they were afebrile. Hemoglobin was 13.1. By his second postoperative day, he was feeling a little tired and had some discomfort in his knee but pain medications were helping. He had no other complaints. Lan dressing was clean, dry, and intact. Calves were soft nontender. Toes were mobile. Vital signs were stable. He was progressing with his physical therapy and remaining stable and was felt he could be discharged home. Total Time Total Time Spent Total Time Spent (In Minutes): 5 Discharge Plan Discharge Items Patient Disposition: Home - Self-Care Reason For Visit: Right Knee Osteoarthritis Discharge Diagnosis: Right Knee Osteoarthritis Activity: Per Instructions section Weightbearing: Right weightbearing Weightbearing Comment: as tolerated with walker Non-emergency contact: Surgeon Call non-emergency contact if: your pain is not controlled, your temperature is above 101.5, your wound has increased redness and your wound has increased drainage Follow-up/Referrals: Antonieta Pruitt MD [Primary Care Provider] - Diet: Regular Addtl Attending Provider Instructions: ACTIVITY RECOMMENDATIONS: SELF CARE INSTRUCTIONS AFTER TOTAL KNEE REPLACEMENT A. You may need to continue a physical therapy program after discharge from the hospital. There are several options available to you. Your doctor will assist you in selecting the best one for you. 1. An out-patient facility 2 to 3 times a week for therapy or home therapy. 2. Continue working on all exercises taught to you in the hospital. Your goals should be to increase bending of your knee to 90 degrees and beyond and to fully straighten your knee. B. You may progress at your own pace from walking with a walker or crutches to a cane; then to no assistive devices. C. Make walking a part of your daily routine. Be up as much as comfortable with rest periods throughout the day. Rest with leg elevation is very important. Use the ice wrap frequently for the first 3-4 weeks. D. There are no restrictions on activities. You may ride in a car, shop, participate in filling station equipment mechanic and all social activities. E. Wear the long elastic stockings (IDA hose) 20 hours a day for 2 weeks after surgery. They can be removed several times a day for laundering and for a bath. F. You may shower, no tub baths until cleared by your doctor. SPECIAL CARE INSTRUCTIONS: VERY IMPORTANT TO READ AND REVIEW A. There are a few signs you need to watch for after you are home. Call [facility] if you notice any of the followin. Increased severe knee pain. Some pain is expected especially when you exercise. 2. Increased swelling in your leg or knee; pain or swelling of the calf muscle in either lower leg. 3. Any fluid drainage from the incision. 4. Shortness of breath or chest pain. B. Please call [facility] at if you have any concerns or questions about your operation or recovery. The doctor or his nurse will return your call promptly. C. You must take antibiotics before dental work, bladder, bowel or other surgery. Your doctor will provide you with a permanent care to carry describing this precaution. IMPORTANT: * REMEMBER TO TAKE ASPIRIN, 81 MG, TWICE DAILY FOR 4 WEEKS UNLESS OTHERWISE DIRECTED. THIS IS YOUR BLOOD THINNER. * HIGH RISK PATIENTS MAY BE PRESCRIBED A STRONGER BLOOD THINNER. THIS WILL BE PROVIDED AT DISCHARGE. * CALL IF INCREASED PAIN, REDNESS, DRAINAGE OR FEVER GREATER THAT 101. * WEAR IDA HOSE 20 HOURS PER DAY FOR 2 WEEKS. * Lan dressing - This is a large suction dressing covering your incision. This will help pull any excess drainage from the wound and allow your incision to heal properly. You may shower with this if you can keep the unit outside of the shower. If any bleeding or leakage is noted please call your doctor's office. This will remain on your incision for 7 days and then should be removed. This can be done yourself or by the home nursing staff if applicable. The entire unit is disposable once removed. Once removed, keep incision clean and dry. If redness or drainage is noted, please call your surgeon. . FOLLOW UP VISIT: If appointment is not already scheduled: Please call [facility] to make a follow-up appointment for 2 weeks after your surgery at . Stand-Alone Forms: My [facility] [place], Opioid Pain Management, Smoking Cessation Medications and DC Order Prescriptions: New aspirin 81 mg Tablet,Delayed Release (Dr/Ec) 81 mg PO BID 30 Days Qty: 60 RF: 0 polyethylene glycol 3350 [Miralax] 17 gram powder in packet 17 g PO DAILY PRN (Reason: constipation) Qty: 5 RF: 0 Continued omeprazole 20 mg capsule,delayed release(DR/EC) 20 mg PO QAM Qty: 90 RF: 3 losartan [Cozaar] 100 mg tablet 100 mg PO QAM Qty: 90 RF: 3 cyanocobalamin (vitamin B-12) 1,000 mcg tablet 1,000 mcg PO QAM RF: 0 fiber 1 tab PO DAILY RF: 0 Discontinued acetaminophen 500 mg tablet 500 mg PO Q4H PRN (Reason: pain) Qty: 30 RF: 0 diphenhydramine-acetaminophen [Tylenol PM Extra Strength] 25-500 mg Tablet 1 tab PO HS PRN (Reason: Sleep) RF: 0 aspirin 81 mg tablet,delayed release (DR/EC) 81 mg PO QAM RF: 0 Discharge Orders: Discharge Order (Routine); Ordered 08/21/20 Ordered By: Reginald Breen/Other Patient Handouts: DVT Post Op Prevention, Understanding Knee Replacement, Knee Replacement Total Dc Admission Data Admit Date/Time: 08/20/20 08:18 Attending Provider: Jasen Loera Admit Provider: Jasen Loera Primary Care Provider: Antonieta Pruitt Other Providers: Gael Moreno Other Interventions: Discharge Summary Assessment (RN) Last Done: 08/21/20 10:58
== END 2020-08-21 12:01 | disposition home or self-care (01) | DRG 470 ==
LOC: 3E 06:30 → ASU 06:30

== ENCOUNTER 2023-10-23 05:05 | Inpatient (IN) ==
--- NOTE | 2023-10-05 12:47 | PAT Medication Instructions ---
Medication Instructions Date of Service October 05, 2023 Home Medications Medication Instructions Recorded meclizine 25 mg tablet 25 mg PO TID PRN motion sickness 10/20/21 #60 tabs losartan 100 mg tablet (Cozaar) 100 mg PO QAM #90 tabs 04/13/23 omeprazole 20 mg capsule,delayed 20 mg PO QAM #90 caps 04/13/23 release sildenafil 50 mg tablet (Viagra) 50 mg PO DAILY PRN sexual activity 05/24/23 #20 tabs metoprolol succinate 25 mg 25 mg PO HS #90 tabs 07/24/23 tablet,extended release 24 hr cyanocobalamin (vitamin B-12) 1,000 mcg tablet 1,000 mcg PO QAM fiber 1 tab PO QAM meclizine 25 mg tablet 25 mg PO TID PRN aspirin 81 mg tablet,delayed release (Adult Low Dose Aspirin) 81 mg PO QAM losartan 100 mg tablet (Cozaar) 100 mg PO QAM omeprazole 20 mg capsule,delayed release 20 mg PO QAM sildenafil 50 mg tablet (Viagra) 50 mg PO DAILY PRN metoprolol succinate 25 mg tablet,extended release 24 hr 25 mg PO HS rosuvastatin 5 mg tablet 5 mg PO QAM ASK your prescriber and surgeon aspirin 81 mg tablet,delayed release (Adult Low Dose Aspirin) 81 mg PO QAM DO NOT take the morning of surgery cyanocobalamin (vitamin B-12) 1,000 mcg tablet 1,000 mcg PO QAM fiber 1 tab PO QAM losartan 100 mg tablet (Cozaar) 100 mg PO QAM sildenafil 50 mg tablet (Viagra) 50 mg PO DAILY PRN Take morning of surgery With a small sip of water, OTHERWISE NOTHING TO EAT OR DRINK AFTER MIDNIGHT: meclizine 25 mg tablet 25 mg PO TID PRN(if needed) omeprazole 20 mg capsule,delayed release 20 mg PO QAM rosuvastatin 5 mg tablet 5 mg PO QAM Take evening before surgery meclizine 25 mg tablet 25 mg PO TID PRN(if needed) metoprolol succinate 25 mg tablet,extended release 24 hr 25 mg PO HS Other Notes If you have any questions please call us at [phone] or [phone] or [phone] or [phone]
--- NOTE | 2023-10-12 11:19 | Anesthesiology Consultation ---
Date of Service October 12, 2023 Assessment & Plan (1) Encounter for pre-operative examination: Chart Review Chart Review: Acceptable Risk for Surgery (pending PCP clearance ) and Patient seen in Pre Admission Testing - Awaiting PCP clearance 10/16/23 ([place]) - Patient is NOT an OPJ candidate (currently 23 observation) Per PAT appt on 10/12/23, no recent illness/disease exposures, illness related symptoms, or recent illness/disease positive tests. Will leave to surgeon's discretion if preop Covid testing needed Right TKA 08/19/20= Done under SAB at L3-4. History Surgery Operation Date: 10/23/23 07:30 Proposed Procedures p Left Knee Total Knee Arthroplasty Poly Exchange(Left) - Jasen Loera MD Height/Weight Height: 5 ft 10 in Weight: 84.4 kg Allergies Allergy/AdvReac Type Severity Reaction Status Date / Time atorvastatin Allergy Intermediate Cramping Verified 10/05/23 10:52 of the Muscles celecoxib [From Celebrex] Allergy Mild rash Verified 10/05/23 10:52 clopidogrel [From Plavix] Allergy Mild hives Verified 10/05/23 10:52 oxycodone [From OxyContin] Allergy Mild rash Verified 10/05/23 10:52 Medications Home Medications Medication Instructions Recorded Confirmed Last Taken cyanocobalamin (vitamin B-12) 1,000 mcg PO QAM 04/06/20 10/05/23 08/18/20 06:30 1,000 mcg tablet fiber 1 tab PO QAM 08/19/20 10/05/23 08/18/20 06:30 meclizine 25 mg tablet 25 mg PO TID PRN motion sickness 10/20/21 10/05/23 Unknown #60 tabs aspirin 81 mg tablet,delayed 81 mg PO QAM 08/01/22 10/05/23 Unknown release (Adult Low Dose Aspirin) losartan 100 mg tablet (Cozaar) 100 mg PO QAM #90 tabs 04/13/23 10/05/23 Unknown omeprazole 20 mg capsule,delayed 20 mg PO QAM #90 caps 04/13/23 10/05/23 Unknown release sildenafil 50 mg tablet (Viagra) 50 mg PO DAILY PRN sexual activity 05/24/23 10/05/23 Unknown #20 tabs metoprolol succinate 25 mg 25 mg PO HS #90 tabs 07/24/23 10/05/23 Unknown tablet,extended release 24 hr rosuvastatin 5 mg tablet 5 mg PO QAM 10/05/23 10/05/23 Unknown Past Medical History Medical History BPPV (benign paroxysmal positional vertigo) Occ flares - meclizine PRN - no recent issues Acid reflux disease well controlled and stable Whelan's esophagus EGD 04/19/21 no evidence of whelan's Esophageal stricture History of transient ischemic attack 1989. 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 Marian Naylor- Laparoscopic hand-assisted anterior resection with coloproctostomy, flexible sigmoidoscopy, and transversus abdominus plane block. (Due to possible perforated diverticuli) Encounter for drainage of abscess 08/14/19 Dr. Bret Bernard- CT-guided percutaneous transgluteal placement of a 14 [place] diverticular abscess drainage catheter S/P revision of total knee left S/P lumbar fusion L2-L5 fusion Dr Alexander History of esophagogastroduodenoscopy (EGD) DILTATION S/P cataract extraction bilateral S/P colonoscopy 12/08/2017 repeat 5yrs S/P knee replacement left Past Anesthesia History No Hx of Anesthesia Complications and No Family Hx of Anesthesia Complications History of PONV No Hx of PONV and No Hx of Motion Sickness Social History Smoking Status: Light tobacco smoker tobacco type: cigars (occasionally) Smoking cigarettes per day: rare Do You Dip or Chew Tobacco: No Hx Alcohol Use: Yes Alcohol type: beer alcohol intake frequency: 0-2 drinks per day (2-3 beers/day) Hx Substance Use: No substance use type: does not use Review of Systems - Hx of snoring - no hx of sleep study Patient denies chest pain, shortness of breath, dyspnea on exertion, cough, wheezing, palpitations. No hx of seizures, [place]. No hx of blood clots or blood transfusions Physical Exam VITALS BP 143/86 P 81 TEMP 97.6 SP02 95% RESP 16 Constitutional no acute distress ENMT Mouth: no TMJ clicking Thyromental Distance: > or= 3.5 Finger Breadths (4.0) Mallampati Class: III Full upper denture Missing bottom side and molars Neck + limited neck extension Respiratory normal respiratory effort; no respiratory distress Auscultation: lungs clear to auscultation bilaterally; no wheezes Cardiovascular Rate/Rhythm: regular rate and regular rhythm Heart Sounds: no murmur Vessels: no carotid bruit Musculoskeletal Spine: no pain with cervical ROM Extremities: extremities normal to inspection Psychiatric Orientation: alert Lab Results Anesthesia Preop Results Results Anesthesia Widget: WBC 8.65 K/ul (4.8-10.8) 10/12/23 Hgb 14.8 g/dl (14.0-18.0) 10/12/23 Hct 44.3 % (42.0-52.0) 10/12/23 Plt 295 K/uL (130-400) 10/12/23 Na 137 mmol/L (136-145) 10/12/23 K 4.7 mmol/L (3.5-5.1) 10/12/23 Cl 101 mmol/L (98-107) 10/12/23 CO2 30 mmol/L (21-32) 10/12/23 BUN 12 mg/dl (6-23) 10/12/23 Creat 0.83 mg/dl (0.6-1.4) 10/12/23 Glucose Level 98 mg/dl (70-99(Fasting)) 10/12/23 PT 10.9 Seconds (9.0-12.0) 10/12/23 PTT 27 Seconds (21-31) 10/12/23 INR 1.0 (0.9-1.1) 10/12/23 Urine Color Yellow 10/12/23 Urine Appearance Clear (Clear) 10/12/23 Urine pH 6.0 (4.5-7.5) 10/12/23 Urine Specific Ward 1.008 (1.000-1.030) 10/12/23 Urine Protein Negative (Negative) 10/12/23 Urine Glucose (UA) Negative (Negative) 10/12/23 Urine Ketones Negative (Negative) 10/12/23 Urine Blood Negative (Negative) 10/12/23 Urine Nitrite Negative (Negative) 10/12/23 Urine Bilirubin Negative (Negative) 10/12/23 Urine Urobilinogen Negative (Negative) 10/12/23 Urine Leukocyte Esterase Negative (Negative) 10/12/23 Blood Type O Positive 10/12/23 Antibody Screen NEGATIVE 10/12/23 Testing Electrocardiogram Date: 10/12/23 NSR at 76bpm Minimal voltage criteria for LVH, may be normal variant (R in aVL) When compared to EKG from April 07, 2020- no significant change was found per cardio Chest X-Ray Date: 10/12/23 FINDINGS: There is no pneumothorax or pleural effusion. Basilar and peripheral predominant interstitial thickening with lower lobe volume loss is present. There has been mild progression since radiographs of April 06, 2020. Cardiomediastinal silhouette is unremarkable. IMPRESSION: 1. No acute cardiopulmonary findings. 2. Findings consistent with interstitial lung disease and suspected pulmonary fibrosis with mild progression since prior radiographs. No superimposed consolidation. Echocardiogram Date: 04/06/20 EF: 55-60% Normal LV size with mild concentric LVH. No regional wall motion abnormalities. Normal RV size and function. No significant valvular pathology. No prior studies for comparison. Stress Test Date: 04/07/20 Type: DSE Normal dobutamine echocardiogram without evidence of inducible ischemia Baseline EKG was normal with occasional PVCs. No significant ST or T wave changes during dobutamine infusion. Baseline echo demonstrates normal LV function and wall motion. Normal augmentation of all segments without development of regional wall motion abnormalities at peak dobutamine infusion
--- NOTE | 2023-10-14 08:49 | History & Physical Report ---
Date of Service October 14, 2023 Assessment & Plan (1) Instability of left knee joint: Plan: Treatment options discussed with the patient. They wish to proceed with surgical management. Risks, benefits and alternatives to surgery including but not limited to infection, DVT, pain, stiffness, need for revision surgery, damage to blood vessels, damage to nerves, PE, , were discussed with the patient and they wish to proceed. Plan for left total knee polyethylene bearing change. Surgery scheduled for October 23 at [facility] with Dr. Loera. Plan outpatient therapy postop. Plan on aspirin 81 mg twice daily for 1 month postop for DVT prophylaxis. All questions answered. Patient follow-up postoperatively. History of Present Illness Chief Complaint: Left knee instability and pain Primary Care Provider: CAMILA Rose 78-year-old male with past medical history significant for hypertension, high cholesterol, pulmonary fibrosis, history of TIA who presents with onset of left knee instability. He does have past history of total knee arthroplasty with Encore total knee system. His exam and history is consistent with a fractured polyethylene post. His symptoms are interfering with his daily activities. He would like to proceed with surgical management. Patient denies headaches, sweats, fevers, chills, double vision, blurred vision, cough, sore throat, dysphagia, chest pain, sob, wheezing, n/v/d/c, numbness, tingling, fatigue, urinary symptoms, mood disorders. ROS positive for left knee pain and stiffness. Allergies Allergy/AdvReac Type Severity Reaction Status Date / Time atorvastatin Allergy Intermediate Cramping Verified 10/05/23 10:52 of the Muscles celecoxib [From Celebrex] Allergy Mild rash Verified 10/05/23 10:52 clopidogrel [From Plavix] Allergy Mild hives Verified 10/05/23 10:52 oxycodone [From OxyContin] Allergy Mild rash Verified 10/05/23 10:52 Home Medications Medication Instructions Recorded Confirmed Type cyanocobalamin (vitamin B-12) 1,000 mcg PO QAM 04/06/20 10/05/23 History 1,000 mcg tablet fiber 1 tab PO QAM 08/19/20 10/05/23 History meclizine 25 mg tablet 25 mg PO TID PRN motion sickness 10/20/21 10/05/23 Rx #60 tabs aspirin 81 mg tablet,delayed 81 mg PO QAM 08/01/22 10/05/23 History release (Adult Low Dose Aspirin) losartan 100 mg tablet (Cozaar) 100 mg PO QAM #90 tabs 04/13/23 10/05/23 Rx omeprazole 20 mg capsule,delayed 20 mg PO QAM #90 caps 04/13/23 10/05/23 Rx release sildenafil 50 mg tablet (Viagra) 50 mg PO DAILY PRN sexual activity 05/24/23 10/05/23 Rx #20 tabs metoprolol succinate 25 mg 25 mg PO HS #90 tabs 07/24/23 10/05/23 Rx tablet,extended release 24 hr rosuvastatin 5 mg tablet 5 mg PO QAM 10/05/23 10/05/23 History Past Med/Surg History Medical History BPPV (benign paroxysmal positional vertigo) Occ flares - meclizine PRN - no recent issues Acid reflux disease well controlled and stable Whelan's esophagus EGD 04/19/21 no evidence of whelan's Esophageal stricture History of transient ischemic attack 1989. 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 Marian Naylor- Laparoscopic hand-assisted anterior resection with coloproctostomy, flexible sigmoidoscopy, and transversus abdominus plane block. (Due to possible perforated diverticuli) Encounter for drainage of abscess 08/14/19 Dr. Bret Bernard- CT-guided percutaneous transgluteal placement of a 14 [place] diverticular abscess drainage catheter S/P revision of total knee left S/P lumbar fusion L2-L5 fusion Dr Alexander History of esophagogastroduodenoscopy (EGD) DILTATION S/P cataract extraction bilateral S/P colonoscopy 12/08/2017 repeat 5yrs S/P knee replacement left Family History Father Amyotrophic lateral sclerosis Son Sarcoma Denies family history of Ovarian cancer Prostate cancer Myocardial infarction Breast cancer Colorectal cancer Social History Smoking Status: Light tobacco smoker Tobacco Type: Cigars Cigarettes Per Day: rare; Second Hand Exposure: No; Do You Dip or Chew Tobacco: No; Hx Alcohol Use: Yes Alcohol type: beer Alcohol Intake Frequency Comment: 1-2 beers Hx Substance Use: No Preferred Language: [place] Communication Ability: Effective Visual Impairment: Partially Limited Hearing Ability: Use of Hearing Aid Adjunct Professor Required: No Beliefs That Will Affect Care: None marital status: / Current Living Situation: Alone current occupational status: employed and retired 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 How many Children do You have: 3 Feels Safe at Home: Yes Childhood Exposure to Second-Hand Smoke: No caffeine: Yes (coffee) during the past year weight has: remained stable Dental Care, Regularly: Yes Physical Activity Frequency: Daily Physical Activity Frequency Comment: working/walking Seatbelt Use: always Sunscreen Use: No Do you think of yourself as: straight/heterosexual Assistive Devices: Denture - Upper, Glasses and Hearing Aid - Bilateral Review of Systems All systems reviewed & are unremarkable except as noted in HPI & below Physical Exam Constitutional: well developed and well nourished; no acute distress Eyes: PERRL, conjunctivae normal, anicteric sclerae ENMT: external ear and nose normal, oropharynx normal Neck: trachea midline, no thyromegaly Respiratory: normal respiratory effort, lungs clear to auscultation Cardiovascular: RRR, no murmur, no edema Musculoskeletal: Left knee: Well-healed surgical incision. Mild effusion. Positive posterior drawer. Range of motion is 0 to 130 degrees. Mild instability with valgus and varus stress test. There is increased posterior translation with clunk cons istent with a fractured polyethylene post. Skin: no rashes, warm and dry Neurologic: patellar DTR's 2+ bilat, sensation intact Psychiatric: A+Ox3, euthymic affect Results & Data Diagnostic Findings Left knee radiographs demonstrate well-fixed total knee arthroplasty in stable alignment. No evidence of loosening.
[2023-10-23] MEDS ORDERED: LR 60ML/HR IV SCH (06:00)
[2023-10-23] MEDS ORDERED: FAMOTIDINE 20 MG TAB PO SCH (06:00)
[2023-10-23] MEDS ORDERED: ceFAZolin 2000MG 2,000 MG/15 ML SYR IV SCH (06:00)
[2023-10-23] MEDS ORDERED: ACETAMINOPHEN 500 MG TAB PO SCH (06:00)
[2023-10-23] MEDS ORDERED: dexAMETHasone 4 MG TAB PO SCH (06:00)
[2023-10-23] MEDS ORDERED: LR 500ML BOLUS, THEN 15ML/HR IV SCH (06:00)
[2023-10-23] MEDS ORDERED: TRANEXAMIC ACID 1,000 MG **IV Pre-op IV SCH (06:00)
[2023-10-23] MEDS ORDERED: GABAPENTIN 300 MG CAP PO SCH (06:00)
[2023-10-23] MEDS ORDERED: ROPIVACAINE 0.5% HCL/PF 150 MG, BUPIVACAINE 0.75% MPF 20 ML, EPINEPHrine 30MG/30ML (OR ... INSTIL SCH (06:00)
[2023-10-23] MEDS ORDERED: ROPIVACAINE 0.5% 5 MG/ML 30 ML VIAL ONE (06:24)
[2023-10-23] MEDS ORDERED: BUPIVACAINE 0.5 % 5 MG/1 ML PF 10ML VIAL ONE (06:24)
[2023-10-23] MEDS ORDERED: ATROPINE SULFATE 0.1 MG/ML 10ML SYR IV PRN (06:35)
[2023-10-23] MEDS ORDERED: fentaNYL citrate PF 100 MCG/2 ML VIAL IV PRN (06:35)
[2023-10-23] MEDS ORDERED: ONDANSETRON INJ 2 MG/ML 2 ML VIAL IV PRN ×2 (06:35→10:35)
[2023-10-23] MEDS ORDERED: ePHEDrine sulfate 50 MG/ML AMP IV PRN (06:35)
[2023-10-23] MEDS ORDERED: LIDOCAINE 2% 2 ML VIAL/AMP(20MG/ML) INFIL ONE (06:45)
[2023-10-23] MEDS ORDERED: DEXAMETHASONE SOD INJ 4 MG/ML VIAL ONE (06:45)
[2023-10-23] MEDS ORDERED: ONDANSETRON INJ 2 MG/ML 2 ML VIAL ONE (06:45)
[2023-10-23] MEDS ORDERED: PROPOFOL IV EMULSION 10 MG/ML 20 ML VIAL IV ONE (06:45)
[2023-10-23] MEDS ORDERED: fentaNYL citrate PF 100 MCG/2 ML VIAL ONE (06:46)
[2023-10-23] MEDS ORDERED: MIDAZOLAM HCL 1 MG/ML 2ML VIAL ONE (06:46)
--- NOTE | 2023-10-23 07:09 | History & Physical Bridge Note ---
Date of Service October 23, 2023 History & Physical Bridge Note I have examined the patient, reviewed the History & Physical and in the interval since the performance of the History & Physical I have noted the following changes of clinical significance: no changes noted
[2023-10-23] MEDS: TRANEXAMIC ACID 1,000 MG **IV Intra-op IV SCH ×2 (07:30→11:02)
[2023-10-23] MEDS ORDERED: ePHEDrine sulfate 50 MG/5 ML SYR ONE (07:55)
--- NOTE | 2023-10-23 09:31 | Post Operative Brief Note ---
Immediate Post Op Note v1 Date of Surgery October 23, 2023 Pre & Post Diagnosis Operation Date: 10/23/23 07:30 Pre-Op Diagnosis: Left Knee Instability, polyethylene post fracture, Status Post Left Knee Arthroplasty Post-Op Diagnosis: Left Knee Instability, polyethylene postfracture and polyethylene wear, heterotopic bone, synovitis, Status Post Left Knee Arthroplasty I identified the patient and participated in the time-out.: Yes Procedure Operation Date: 10/23/23 07:30 Actual Procedures p Left Total Knee Arthroplasty Poly Exchange(Left), electrocautery synovectomy, excision heterotopic bone.- Jasen Loera MD Surgeon Jasen Loera MD Surfacing Machine Operator Jr GRIMM Estimated Blood Loss 5 Findings Consistent with Post-Op Diagnosis Specimens Polyethylene of tibia Synovium left knee joint Drains Hemovac Drain Anesthesia Type MAC Spinal Regional Complications none Disposition Disposition: Recovery Room Overlapping Procedure I was immediately available: during the entire case.
--- NOTE | 2023-10-23 09:49 | Operative Report ---
Post Operative Report Pre & Post Diagnosis Operation Date: 10/23/23 07:30 Pre-Op Diagnosis: Left Knee Instability, fractured polyethylene post, Status Post posterior stabilized left total knee Arthroplasty. Post-Op Diagnosis: Left Knee Instability, fracture polyethylene post with polyethylene wear tibial component and patella components status post posterior stabilized left total knee arthroplasty with heterotopic bone and chronic synovitis. I identified the patient and participated in the time-out.: Yes Procedure Operation Date: 10/23/23 07:30 Actual Procedures p Left Total Knee Arthroplasty Poly Exchange of posterior stabilized tibial component with electrocautery synovectomy excision heterotopic bone and debridement. Kaylynn and Acticoat superficial wound VAC application.- Jasen Loera MD Surgeon Jasen Loera MD After School Coordinator Jr GRIMM Estimated Blood Loss 5 Findings Consistent with Post-Op Diagnosis Specimens Tibial polyethylene and fragments and synovium knee joint left knee Drains 2 Hemovac Anesthesia Type General Regional Complications none Disposition Disposition: Recovery Room Indications 78-year-old male with index left total knee replacement 1997 and did well until he had a fractured polyethylene post in 2003 after which she had a revision of the tibial polyethylene did well until this year when polyethylene post refractured and he has some synovitis and instability. Patient has an Encore knee replacement. Description of Procedure Patient had regional block and spinal anesthetic per anesthesia and placed spine on the operating table. A pneumatic tourniquet was placed by his left upper thigh. Left knee exam demonstrated he had posterior instability of the knee consistent with fractured polyethylene post. There is also some medial lateral instability which was fairly minor but increased from normal related to the polyethylene postfracture. There was some moderate synovitis. His scar was benign there is no erythema or drainage no signs of infection. The leg was elevated exsanguinated with an Esmarch bandage and the pneumatic tourniquet was raised to 275 mmHg. Skin incised sharply subcutaneous flaps were elevated. Patient was a thin individual with very thin subcutaneous tissues. An incision was made through the medial retinaculum and joint fluid which appeared to be benign and was evacuated. The incision was carried up through the mid third of the quadriceps tendon and down to the medial tibial tubercle. There was some thickened scarred synovial tissue noted. The tibial polyethylene was completely fractured down at the base and multiple fragments were noted from the post. There was both medial and lateral wear on the tibial polyethylene in addition to the post fracture. Patella polyethylene has some superficial wear centrally but was not loose. Electrocautery synovectomy was performed and the scarred and patellar fat pad was resected and there was heterotopic bone within the fat pad that was resected. There was some heterotopic bone around the patella that was resected in the medial femoral condyle. This allowed exposure of the tibial sai yethylene which was removed uneventfully and multiple fragments of fracture polyethylene were removed from the knee joint. Further synovectomy performed posterior in the joint after this was exposed by removing the tibial polyethylene. The knee was copiously irrigated with saline solution and then we did a trial reduction with an 8 x 11 trial posterior stabilized insert and the knee was stable through full range of motion. The trial was removed and further irrigation for total of 3 L of irrigation with saline followed by irrigation with xperience. Posterior stabilized polyethylene 8 x 11mm series 500 tibial insert from [employer] knee system was impacted in position and then the security screw tightened with a torque screwdriver. Further irrigation with xperience was performed. 2 Hemovac drains were placed and brought out laterally. The quadriceps tendon and the medial retinaculum was closed with [id number] #1 Vicryl sutures. The patella tracked centrally and the knee had full range of motion. The knee was stable throughout range of motion. The subcutaneous tissues were closed up to 2-0 Vicryl and the skin was closed with brandon and a kaylynn and Acticoat superficial wound VAC was applied. Jr GRIMM is with persistent he assisted throughout the procedure including prepping draping soft tissue retraction instrument management wound closure and wound VAC application and postoperative care. I attest to the content of the Intraoperative Record and any orders documented therein. Any exceptions are noted below.
--- NOTE | 2023-10-23 10:03 | XRay Report ---
XR knee LT 1 or 2V routine CLINICAL HISTORY: Postoperative evaluation. COMPARISON: None FINDINGS: Alignment of the total left knee arthroplasty is anatomic. There is no periprosthetic frac ture or unexpected radiopaque foreign body. Skin surgical drain is in place. There are skin brandon. IMPRESSION: Expected findings following total left knee arthroplasty. ACT 112: Negative or not required by law. Electronically signed by: Chaitanya Trimble M.D. 10/23/2023 10:00 AM
--- NOTE | 2023-10-23 10:27 | Anesthesiology Progress Note ---
Date of Service October 23, 2023 Anesthesia Post Procedure Vital Signs Vital Signs: Temp Pulse Resp BP Pulse Ox O2 Del Method 10/23/23 10:20 97.3 F L 71 24 121/70 94 Room Air 10/23/23 10:10 58 L 21 114/69 93 Room Air 10/23/23 10:00 61 20 113/66 93 Room Air 10/23/23 09:50 64 20 120/72 95 Room Air 10/23/23 09:40 74 20 105/73 94 Room Air 10/23/23 09:30 97.0 F L 77 20 114/71 96 Room Air 10/23/23 05:50 98.2 F 67 18 146/85 H 97 Room Air Transfer of Care Handoff Completed per policy Notes Mental Status: alert / awake / arousable and participated in evaluation Patient Amnestic to Procedure: Yes Nausea / Vomiting: adequately controlled Pain: adequately controlled Airway Patency, RR, SpO2: stable & adequate BP & HR: stable & adequate Hydration State: stable & adequate Neuraxial Anesthesia: was administered and sensory block is resolving Anesthetic Complications: no major complications apparent and Pt Satisfied with anesthetic care
[2023-10-23] MEDS ORDERED: MAGNESIUM HYDROXIDE SUSP 30 ML UDC PO PRN (10:35)
[2023-10-23] MEDS ORDERED: METOCLOPRAMIDE HCL INJ 5 MG/ML 2 ML VIAL IV PRN (10:35)
[2023-10-23] MEDS ORDERED: HYDROmorphone INJ 0.5 MG/0.5 ML SYR IV PRN (10:35)
[2023-10-23] MEDS ORDERED: NALOXONE HCL 0.4 MG/1 ML VIAL/CARP IV PRN (10:35)
[2023-10-23] MEDS ORDERED: SODIUM CHLORIDE 0.9% 1,000 ML IV SCH (10:35)
[2023-10-23] MEDS ORDERED: bisacodyL 10 MG SUPP PR PRN (10:35)
--- NOTE | 2023-10-23 10:57 | Hospitalist Consultation ---
Date of Consultation October 23, 2023 Assessment & Plan (1) S/P left knee surgery: S/p left total knee arthroplasty with Dr. Loera on 10/23 Left knee x-ray postop revealed expected findings Perioperative antibiotics, pain control, DVT PPx, and IV fluids per the primary team Agree with a.m. CBC, BMP tomorrow, we will follow Okay to restart aspirin OOB with assist to chair as tolerated PT/OT consulted (2) Hypertension: BP 135/83 at time of consult Okay to take metoprolol the evening of 10/23 Continue metoprolol, losartan (3) Hyperlipidemia: Continue rosuvastatin (4) Acid reflux disease: Continue omeprazole, or equivalent (5) Interstitial lung disease: Appears this has never been worked up. Discussed with the patient to consider outpatient PFTs. Lung CT. Pulm referral. Although CXR changes notes on prior reports at least as far back as 2018. Unclear if current exam findings due to atelectasis from operation vs. underlying ILD. Plan Disposition: MedSurg Regular diet VTE PPx: per primary orthopedic team Thank you for allowing us to participate in the care of this patient, please reach out with any questions or concerns. Supervising Physician Co-Signing Physician Notes I personally saw and examined the patient. I verified all pho[place] points and agree with Wisam Miguel PA-C with the following exceptions and/or additions: 78 year old POD#0 s/p left TKA. EBL 5ml. No acute concerns or question per the patient. O/E HS RRR, no murmurs, Chest - loud fine crackles bibasal, no wheezing, Abdo SNT A/P VTE/Bowel/Pain management per primary orthopedic team HTN - continue his usual medications, given current BP not need to hold medications Suspected ILD - recommend follow up with his primary care physician to discuss pulm referral, PFTs, CT chest although he notes good exercise tolerance and suspect these findings are chronic History of Present Illness Reason for Consultation: Medical management Requesting Physician: Jasen Loera MD Attending Physician: Jasen Loera MD History of Present Illness Stephan is a pleasant 78-year-old male with PMH of HTN, HLD, Whelan's esophagus, TIAs, lumbar stenosis with neurogenic claudication, and OA. He presented for a left total knee arthroplasty with Dr. Loera at 0730 on 10/23/2023. Per operative report, EBL was listed as 5 cc, general regional anesthesia was used, and there were no reported intraoperative complications. Per review of patient's vitals, patient has been stable postop. He reports no left knee pain at time of consult. However, he does endorse mild numbness and tingling in the LLE. He reports he is eating/drinking well. He has not tried using the bathroom since the operation. He did not take any morning medications, and reports the last medication he took was metoprolol the night of 10/22. No at home O2 use. He has no new complaints at present. ROS: Patient endorses intermittent numbness/tingling down the LLE. Patient denies fever, chills, chest pain, SOB, pleuritic CP, abdominal pain, nausea/vomiting, or urinary s/s. Allergies Allergy/AdvReac Type Severity Reaction Status Date / Time celecoxib [From Celebrex] Allergy Mild rash Verified 10/23/23 05:34 clopidogrel [From Plavix] Allergy Mild hives Verified 10/23/23 05:34 oxycodone [From OxyContin] Allergy Mild rash Verified 10/23/23 05:34 atorvastatin AdvReac Intermediate Cramping Verified 10/23/23 05:34 of the Muscles Home Medications Medication Instructions Recorded Confirmed Type cyanocobalamin (vitamin B-12) 1,000 mcg PO QAM 04/06/20 10/23/23 History 1,000 mcg tablet fiber 1 tab PO QAM 08/19/20 10/23/23 History meclizine 25 mg tablet 25 mg PO TID PRN motion sickness 10/20/21 10/23/23 Rx #60 tabs losartan 100 mg tablet (Cozaar) 100 mg PO QAM #90 tabs 04/13/23 10/23/23 Rx omeprazole 20 mg capsule,delayed 20 mg PO QAM #90 caps 04/13/23 10/23/23 Rx release sildenafil 50 mg tablet (Viagra) 50 mg PO DAILY PRN sexual activity 05/24/23 10/16/23 Rx #20 tabs metoprolol succinate 25 mg 25 mg PO HS #90 tabs 07/24/23 10/23/23 Rx tablet,extended release 24 hr rosuvastatin 5 mg tablet 5 mg PO QAM 10/05/23 10/23/23 History aspirin 81 mg tablet,delayed 81 mg PO BID #60 tabs 10/23/23 Rx release cefadroxil 500 mg capsule 500 mg PO BID #28 caps 10/23/23 Rx hydrocodone 5 mg-acetaminophen 325 1 - 2 tab PO .Q4h-6h PRN pain #30 10/23/23 Rx mg tablet tabs Patient History Medical History BPPV (benign paroxysmal positional vertigo) Occ flares - meclizine PRN - no recent issues Acid reflux disease well controlled and stable Whelan's esophagus EGD 04/19/21 no evidence of whelan's Esophageal stricture History of transient ischemic attack 1989. Hyperlipidemia Hypertension Idiopathic diffuse interstitial pulmonary fibrosis no mangle press catcher breathing stable Surgical History S/P colon resection 10/11/19 Dr. Marian Naylor- Laparoscopic hand-assisted anterior resection with coloproctostomy, flexible sigmoidoscopy, and transversus abdominus plane block. (Due to possible perforated diverticuli) Encounter for drainage of abscess 08/14/19 Dr. Bret Bernard- CT-guided percutaneous transgluteal placement of a 14 [place] diverticular abscess drainage catheter S/P revision of total knee left S/P lumbar fusion L2-L5 fusion Dr Alexander History of esophagogastroduodenoscopy (EGD) DILTATION S/P cataract extraction bilateral S/P colonoscopy 12/08/2017 repeat 5yrs S/P knee replacement left Family History Father Amyotrophic lateral sclerosis Son Sarcoma Denies family history of Ovarian cancer Prostate cancer Myocardial infarction Breast cancer Colorectal cancer Social History Smoking Status: Light tobacco smoker Tobacco Type: Cigars Cigarettes Per Day: rare; Second Hand Exposure: No; Do You Dip or Chew Tobacco: No; Tobacco Cessation Education Requested by Patient: No Hx Alcohol Use: Yes Alcohol type: beer Alcohol Intake Frequency Comment: 1-2 beers Hx Substance Use: No Preferred Language: Swedish Communication Ability: Effective Visual Impairment: Partially Limited Hearing Ability: Use of Hearing Aid Pulp Drier Required: No Beliefs That Will Affect Care: None marital status: / Current Living Situation: Alone current occupational status: employed and retired current occupation: [employer] (part-time) - [employer]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 How many Children do You have: 3 Other Information That Helps Us Care for You: No Feels Safe at Home: Yes Safety Concerns: Feels Safe At This Time Childhood Exposure to Second-Hand Smoke: No caffeine: Yes (coffee) during the past year weight has: remained stable Dental Care, Regularly: Yes Physical Activity Frequency: Daily Physical Activity Frequency Comment: working/walking Seatbelt Use: always Sunscreen Use: No Do you think of yourself as: straight/heterosexual Assistive Devices: Walker Review of Systems Review of Systems: See HPI above Physical Exam Physical Exam: General: no acute distress; pleasant affect; non-toxic appearing; well- nourished; cooperative HEENT: normocephalic, atraumatic; no scleral icterus; moist mucus membrane; vision and hearing grossly intact Neck: supple; no lymphadenopathy; trachea midline Skin: warm, dry without signs of tenting; no cyanosis; no rashes, bruising, lesions, or erythema noted CV: chest wall NTP; RRR; S1/S2 normal; no murmurs/rubs/gallops; pulses intact and symmetric at radial, DP, and PT Lungs: no acute respiratory distress; symmetrical chest wall expansion; clear breath sounds across all lung ellington w/o adventitious sounds; no wheezing ABD: Soft, NTP; BS present; no rebound/guarding; no distention MSK: no tics or fasciculations; no edema noted in the LEs b/l (note: Teds/SCDs in place B/L) LEs: Patient demonstrates the ability to wiggle toes B/L; sensation intact in the LEs B/L, with mildly diminished sensation in the left foot; DP/PT pulses intact and symmetric; mildly reduced strength 4/5 when lifting left leg at the hip off bed Neuro: A&Ox3; normal mood and affect; fluent speech; no focal deficits Results & Data Results & Data Vital Signs (Past 12 Hours) Vital Signs Temp Pulse Pulse Resp BP Pulse Ox O2 Del Method 10/23/23 10:35 36.3 C L 68 16 128/75 92 Room Air 10/23/23 10:20 36.3 C L 71 24 121/70 94 Room Air 10/23/23 10:10 58 L 21 114/69 93 Room Air 10/23/23 10:00 61 20 113/66 93 Room Air 10/23/23 09:50 64 20 120/72 95 Room Air 10/23/23 09:40 74 20 105/73 94 Room Air 10/23/23 09:30 36.1 C L 77 20 114/71 96 Room Air 10/23/23 05:50 36.8 C 67 18 146/85 H 97 Room Air Diagnostic Findings Knee X-Ray 10/23/23 09:30 XR knee LT 1 or 2V routine CLINICAL HISTORY: Postoperative evaluation. COMPARISON: None FINDINGS: Alignment of the total left knee arthroplasty is anatomic. There is no periprosthetic fracture or unexpected radiopaque foreign body. Skin surgical drain is in place. There are skin brandon. IMPRESSION: Expected findings following total left knee arthroplasty. ACT 112: Negative or not required by law. Electronically signed by: Chaitanya Trimble M.D. 10/23/2023 10:00 AM PG Care Time/CCT Total # of Minutes Spent Total Time Spent with Patient: Total time spent is greater than 50% in coordination of care (as documented) at patient's floor/unit and/or counseling patient: C[place] [address] IN/OBS CONSULT LVL 3,45M Patient Type Established Medical Decision Making Low Complexity Diagnoses S/P left knee surgery Z98.890 Hypertension I10 Hyperlipidemia E78.5 Acid reflux disease K21.9 Interstitial lung disease J84.9
[2023-10-23] MEDS: ALLERGY Noted to ORDERED Medication SCH ×5 (11:31→19:00)
[2023-10-23] MEDS: HYDROCODONE/ACETAMOPHEN 5/325MG TAB PO PRN ×2 (14:10→19:31)
[2023-10-23] MEDS: ceFAZolin 2000MG 2,000 MG/15 ML SYR IV SCH ×2 (15:06→22:37)
[2023-10-23] MEDS: ASPIRIN 81 MG ECTAB PO SCH (19:32)
[2023-10-23] MEDS: DOCUSATE SODIUM 100 MG CAP PO SCH (19:33)
[2023-10-23] MEDS ORDERED: METOPROLOL SUCC 25MG EXT REL TAB PO SCH (21:00)
[2023-10-23] MEDS ORDERED: SENNA 8.6 MG TAB PO SCH (21:00)
[2023-10-24] MEDS: HYDROCODONE/ACETAMOPHEN 5/325MG TAB PO PRN ×2 (03:48→08:42)
--- NOTE | 2023-10-24 07:13 | Orthopedic Progress Note ---
Date of Service October 24, 2023 Assessment & Plan (1) Instability of left knee joint: Plan: Postop day 1 status post left polyethylene bearing change of total knee arthroplasty PT OT protocols. Weightbearing as tolerated DVT prophylaxis-aspirin p.o. twice daily, SCDs, IDA hull. Pain management as written. Labs pending. DC planning patient is planning for outpatient PT upon discharge. Plan for discharge to home today. Lab values will be reviewed today prior to discharge. Admission and Anticipated Discharge Date Admission Date: October 23, 2023 Subjective Postop day 1 Patient sitting up in bed awake and alert. No complaints this morning. Pain is controlled. He denies any shortness of breath, chest pain, lightheadedness. He is hoping to go home today. Physical Exam Physical Exam: Dressings are clean, dry, and intact. Calves are soft nontender. Neurovascular intact. Toes are mobile. Hemovac drainage appears minimal this morning. Results & Data Vital Signs (Past 12 Hours) Vital Signs Temp Pulse Resp BP Pulse Ox O2 Del Method 10/24/23 07:01 36.6 C 64 16 150/87 H 95 Room Air 10/24/23 03:40 36.6 C 67 18 126/70 96 Room Air 10/23/23 22:36 36.8 C 87 16 134/71 94 Room Air 10/23/23 19:30 36.7 C 88 16 145/66 H 95 Room Air
[2023-10-24 07:17] LABS: Hematocrit (blood only) 35.9 % (42.0-52.0); Hemoglobin 12.4 g/dl (14.0-18.0); Mean Corpuscular Hemoglobin 29.6 pg (25.0-34.0); Mean Corpuscular Hgb Conc 34.5 g/dL (32.0-36.0); Mean Corpuscular Volume 85.7 fL (80.0-100.0); Mean Platelet Volume 9.7 fL (9.4-12.4); Platelet Count 235 K/uL (130-400); RDW Standard Deviation 43.7 fL (36.4-46.3); Red Blood Count 4.19 M/uL (4.70-6.10); White Blood Count 14.88 K/ul (4.8-10.8)
[2023-10-24 07:49] LABS: BUN Creatinine Ratio 15.7 (10-20); Calcium 8.4 mg/dl (8.6-10.3); Creatinine Clr Calc Pharmacy 68.4 ml/min; Est GFR (African American) 93.6 ml/min; Est GFR (Non-African American) 80.8 ml/min; Potassium 4.4 mmol/L (3.5-5.1)
[2023-10-24] MEDS: DOCUSATE SODIUM 100 MG CAP PO SCH (07:55)
[2023-10-24] MEDS: ASPIRIN 81 MG ECTAB PO SCH (07:56)
[2023-10-24] MEDS ORDERED: CYANOCOBALAMIN (B-12) 500 MCG TABLET PO SCH (09:00)
[2023-10-24] MEDS ORDERED: LOSARTAN POTASSIUM 50 MG TAB PO SCH (09:00)
[2023-10-24] MEDS ORDERED: ROSUVASTATIN CALCIUM 5 MG TAB PO SCH (09:00)
[2023-10-24] MEDS ORDERED: PANTOprazole 40 MG TAB PO SCH (09:00)
[2023-10-24] MEDS ORDERED: MULTIVITAMIN TAB PO SCH (09:00)
--- NOTE | 2023-10-24 09:50 | Hospitalist Progress Note ---
Date of Service October 24, 2023 Assessment & Plan (1) S/P left knee surgery: Plan: S/p left total knee arthroplasty with Dr. Loera on 10/23. EBL 5cc. Hemovac output 400cc. WBC 14.8k, suspect 2nd to stress/surgery. Afebrile Hgb 14.8--> 12.4 -Acute blood loss anemia from surgery and suspect some dilutional aspect from IVF -No lightheaded/dizziness/CP/SOB Left knee x-ray postop revealed expected findings Perioperative antibiotics, pain control, DVT PPx, and IV fluids per the primary team Aspirin restarted by primary PT/OT consulted Dispo: anticipating home today per primary service (2) Hypertension: Plan: BP stable, 150/87 Continues on metoprolol, losartan . Renal function stable (3) Hyperlipidemia: Plan: Continue rosuvastatin (4) Acid reflux disease: Plan: Continue omeprazole, or equivalent (5) Interstitial lung disease: Plan: Appears this has never been worked up. Discussed with the patient to consider outpatient PFTs. Lung CT. Pulm referral. Although CXR changes notes on prior reports at least as far back as 2018. Unclear if current exam findings due to atelectasis from operation vs. underlying ILD. 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 Hospitalist service will sign off. Please call with any questions/concern. Admission and Anticipated Discharge Date Admission Date: October 23, 2023 Subjective Eval this morning, family at bedside, dressed and ready for dc. No fever/chills, chest pain, shortness of breath. 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 Occasional cigar at camp. Pain well controlled, took 1 pain pill but reports he is aware he can take two if needed. Anticipating dc this morning. Physical Exam Physical Exam: General: WD elderly male sitting up in bed, family at bedside, NAD, anticipating discharge HEENT: head normocephalic, atraumatic, mmm, trachea midline Resp: fine bilateral crackles, no wheezing/rales, 95% on room air CV: RRR, no significant mrg, no pitting edema/calf tenderness, pulses palpable GI: +BS, soft/NT no leonardo MSK/Neuro: dressing/ghassan wrap to LEFT knee, hemovac w/ bloody drainage noted, calves nontender, compartments soft, strength testing intact Psych: AOx3, cooperative with exam Results & Data Results & Data Vital Signs (Past 12 Hours) Vital Signs Temp Pulse Resp BP Pulse Ox O2 Del Method 10/24/23 07:01 36.6 C 64 16 150/87 H 95 Room Air 10/24/23 03:40 36.6 C 67 18 126/70 96 Room Air 10/23/23 22:36 36.8 C 87 16 134/71 94 Room Air Laboratory Results 10/24/23 Range/Units 06:50 WBC 14.88 H (4.8-10.8) K/ul RBC 4.19 L (4.70-6.10) M/uL Hgb 12.4 L (14.0-18.0) g/dl Hct 35.9 L (42.0-52.0) % MCV 85.7 (80.0-100.0) fL MCH 29.6 (25.0-34.0) pg MCHC 34.5 (32.0-36.0) g/dL RDW Std Deviation 43.7 (36.4-46.3) fL RDW Coeff of Rosy 14.0 (11.5-14.5) % Plt Count 235 (130-400) K/uL MPV 9.7 (9.4-12.4) fL Sodium 136 (136-145) mmol/L Potassium 4.4 (3.5-5.1) mmol/L Chloride 103 (98-107) mmol/L Carbon Dioxide 28 (21-32) mmol/L Anion Gap 5 (3-11) BUN 14 (6-23) mg/dl Creatinine 0.89 (0.6-1.4) mg/dl Est Cr Clr Drug Dosing 68.4 ml/min Est GFR ( Amer) 93.6 ml/min Est GFR (Non-Af Amer) 80.8 ml/min BUN/Creatinine Ratio 15.7 (10-20) Glucose 96 (70-99(Fasting)) mg/dl Calcium 8.4 L (8.6-10.3) mg/dl Diagnostic Findings Knee X-Ray 10/23/23 09:30 XR knee LT 1 or 2V routine CLINICAL HISTORY: Postoperative evaluation. COMPARISON: None FINDINGS: Alignment of the total left knee arthroplasty is anatomic. There is no periprosthetic fracture or unexpected radiopaque foreign body. Skin surgical drain is in place. There are skin brandon. IMPRESSION: Expected findings following total left knee arthroplasty. ACT 112: Negative or not required by law. Electronically signed by: Chaitanya Trimble M.D. 10/23/2023 10:00 AM PG Care Time/CCT Total # of Minutes Spent Total Time Spent with Patient: Total time spent is greater than 50% in coordination of care (as documented) at patient's floor/unit and/or counseling patient: Coding Level of Care Code 41080 SUB INP/OBS CARE 2/35MIN Diagnoses S/P left knee surgery Z98.890 Hypertension I10 Hyperlipidemia E78.5 Acid reflux disease K21.9 Interstitial lung disease J84.9
--- NOTE | 2023-10-25 15:29 | Discharge Summary ---
Date of Service October 25, 2023 Admission HPI Per Admitting Provider 78-year-old male with past medical history significant for hypertension, high cholesterol, pulmonary fibrosis, history of TIA who presents with onset of left knee instability. He does have past history of total knee arthroplasty with [employer] total knee system. His exam and history is consistent with a fractured polyethylene post. His symptoms are interfering with his daily activities. He would like to proceed with surgical management. Patient denies headaches, sweats, fevers, chills, double vision, blurred vision, cough, sore throat, dysphagia, chest pain, sob, wheezing, n/v/d/c, numbness, tingling, fatigue, urinary symptoms, mood disorders. ROS positive for left knee pain and stiffness. Admission Exam Per Admitting Provider Constitutional: well developed and well nourished; no acute distress Eyes: PERRL, conjunctivae normal, anicteric sclerae ENMT: external ear and nose normal, oropharynx normal Neck: trachea midline, no thyromegaly Respiratory: normal respiratory effort, lungs clear to auscultation Cardiovascular: RRR, no murmur, no edema Musculoskeletal: Left knee: Well-healed surgical incision. Mild effusion. Positive posterior drawer. Range of motion is 0 to 130 degrees. Mild instability with valgus and varus stress test. There is increased posterior translation with clunk consistent with a fractured polyethylene post. Skin: no rashes, warm and dry Neurologic: patellar DTR's 2+ bilat, sensation intact Psychiatric: A+Ox3, euthymic affect Principal Diagnosis Left knee instability Discharge Exam Dressings are clean, dry, and intact. Calves are soft nontender. Neurovascular intact. Toes are mobile. Hemovac drainage appears minimal this morning. Discharge Data Allergies Allergy/AdvReac Type Severity Reaction Status Date / Time celecoxib [From Celebrex] Allergy Mild rash Verified 10/23/23 05:34 clopidogrel [From Plavix] Allergy Mild hives Verified 10/23/23 05:34 oxycodone [From OxyContin] Allergy Mild rash Verified 10/23/23 05:34 atorvastatin AdvReac Intermediate Cramping Verified 10/23/23 05:34 of the Muscles Consultations 10/18/23 16:32 Consult Hospitalist Routine Procedures Performed Operation Date: 10/23/23 07:30 Actual Procedures p Left Total Knee Arthroplasty Poly Exchange(Left) - Jasen Loera MD Ordered Studies 10/23/23 05:00 US - OR guided needle placemen Routine Hospital Course (1) Instability of left knee joint: Postop day 1 status post left polyethylene bearing change of total knee arthroplasty PT OT protocols. Weightbearing as tolerated DVT prophylaxis-aspirin p.o. twice daily, SCDs, IDA hull. Pain management as written. Labs pending. DC planning patient is planning for outpatient PT upon discharge. Plan for discharge to home today. Lab values will be reviewed today prior to discharge. Lab Results 10/24/23 Range/Units 06:50 WBC 14.88 H (4.8-10.8) K/ul RBC 4.19 L (4.70-6.10) M/uL Hgb 12.4 L (14.0-18.0) g/dl Hct 35.9 L (42.0-52.0) % MCV 85.7 (80.0-100.0) fL MCH 29.6 (25.0-34.0) pg MCHC 34.5 (32.0-36.0) g/dL RDW Std Deviation 43.7 (36.4-46.3) fL RDW Coeff of Rosy 14.0 (11.5-14.5) % Plt Count 235 (130-400) K/uL MPV 9.7 (9.4-12.4) fL Sodium 136 (136-145) mmol/L Potassium 4.4 (3.5-5.1) mmol/L Chloride 103 (98-107) mmol/L Carbon Dioxide 28 (21-32) mmol/L Anion Gap 5 (3-11) BUN 14 (6-23) mg/dl Creatinine 0.89 (0.6-1.4) mg/dl Est Cr Clr Drug Dosing 68.4 ml/min Est GFR ( Amer) 93.6 ml/min Est GFR (Non-Af Amer) 80.8 ml/min BUN/Creatinine Ratio 15.7 (10-20) Glucose 96 (70-99(Fasting)) mg/dl Calcium 8.4 L (8.6-10.3) mg/dl Total Time Total Time Spent Total Time Spent (In Minutes): 20 Discharge Plan Discharge Items Patient Disposition: Home - Self-Care Reason For Visit: Left Knee Instability, Status Post Left Knee Arthr Discharge Diagnosis: Left knee instability Activity: Per Instructions section Non-emergency contact: Surgeon Call non-emergency contact if: you have any medication questions, your pain is unusual for you, your pain is concerning for you, you have a fever, your temperature is above 101, your wound has increased redness and your wound has increased drainage Follow-up/Referrals: Ashley Ricci CRNP [Primary Care Provider] - Diet: Regular Addtl Attending Provider Instructions: ACTIVITY RECOMMENDATIONS: SELF CARE INSTRUCTIONS AFTER TOTAL KNEE REPLACEMENT A. You may need to continue a physical therapy program after discharge from the hospital. There are several options available to you. Your doctor will assist you in selecting the best one for you. 1. An out-patient facility 2 to 3 times a week for therapy or home therapy. 2. Continue working on all exercises taught to you in the hospital. Your goals should be to increase bending of your knee to 90 degrees and beyond and to fully straighten your knee. B. You may progress at your own pace from walking with a walker or crutches to a cane; then to no assistive devices. C. Make walking a part of your daily routine. Be up as much as comfortable with rest periods throughout the day. Rest with leg elevation is very important. Use the ice wrap frequently for the first 3-4 weeks. D. There are no restrictions on activities. You may ride in a car, shop, participate in doll maker and all social activities. E. Wear the long elastic stockings (IDA hose) 20 hours a day for 2 weeks after surgery. They can be removed several times a day for laundering and for a bath. F. You may shower, no tub baths until cleared by your doctor. SPECIAL CARE INSTRUCTIONS: VERY IMPORTANT TO READ AND REVIEW A. There are a few signs you need to watch for after you are home. Call [facility] [place] if you notice any of the followin. Increased severe knee pain. Some pain is expected especially when you exercise. 2. Increased swelling in your leg or knee; pain or swelling of the calf muscle in either lower leg. 3. Any fluid drainage from the incision. 4. Shortness of breath or chest pain. B. Please call [facility] at if you have any concerns or questions about your operation or recovery. The doctor or his nurse will return your call promptly. C. You must take antibiotics before dental work, bladder, bowel or other surgery. Your doctor will provide you with a permanent care to carry describing this precaution. IMPORTANT: * REMEMBER TO TAKE ASPIRIN, 81 MG, TWICE DAILY FOR 4 WEEKS UNLESS OTHERWISE DIRECTED. THIS IS YOUR BLOOD THINNER. * HIGH RISK PATIENTS MAY BE PRESCRIBED A STRONGER BLOOD THINNER. THIS WILL BE PROVIDED AT DISCHARGE. * CALL IF INCREASED PAIN, REDNESS, DRAINAGE OR FEVER GREATER THAT 101. * WEAR IDA HOSE 20 HOURS PER DAY FOR 2 WEEKS. There is a large suction dressing covering your incision. This will help pull any excess drainage from the wound and allow your incision to heal properly. You may shower with this if you can keep the unit outside of the shower. If any bleeding or leakage is noted please call your doctor's office. This will remain on your incision for 7 days and then should be removed. This can be done yourself or by the home nursing staff if applicable. The entire unit is disposable once removed. Once removed, keep incision clean and dry. If redness or drainage is noted, please call your surgeon. IF INCISION IS LEAKING THROUGH DRESSING, CALL THE OFFICE . FOLLOW UP VISIT: If appointment is not already scheduled: Please call [facility] [place] to make a follow-up appointment for 2 weeks after your surgery at . Stand-Alone Forms: My [facility] [employer], Smoking Cessation Medications and DC Order Prescriptions: New aspirin 81 mg Tablet,Delayed Release (Dr/Ec) 81 mg PO BID Qty: 60 0RF cefadroxil 500 mg capsule 500 mg PO BID Qty: 28 0RF hydrocodone-acetaminophen 5-325 mg Tablet 1 - 2 tab PO .Q4h-6h MDD 6 PRN (Reason: pain) Qty: 30 0RF Rx Instructions: Ongoing therapy, Dr. Loera supervising Continued meclizine 25 mg tablet 25 mg PO TID PRN (Reason: motion sickness) Qty: 60 1RF omeprazole 20 mg capsule,delayed release(DR/EC) 20 mg PO QAM Qty: 90 3RF losartan [Cozaar] 100 mg tablet 100 mg PO QAM Qty: 90 3RF sildenafil [Viagra] 50 mg tablet 50 mg PO DAILY PRN (Reason: sexual activity) Qty: 20 1RF Rx Instructions: administer 30 minutes to 4 hours before activity metoprolol succinate 25 mg tablet extended release 24 hr 25 mg PO HS Qty: 90 1RF cyanocobalamin (vitamin B-12) 1,000 mcg tablet 1,000 mcg PO QAM fiber 1 tab PO QAM rosuvastatin 5 mg tablet 5 mg PO QAM Discontinued aspirin [Adult Low Dose Aspirin] 81 mg tablet,delayed release (DR/EC) 81 mg PO QAM Discharge Orders: Discharge Order (Routine); Ordered 10/24/23 Ordered By: Reginald Breen/Other Patient Handouts: Tips After Knee Surgery Admission Data Admit Date/Time: 10/23/23 09:40 Attending Provider: Jasen Loera Admit Provider: Jasen Loera Primary Care Provider: Ashley Ricci Other Providers: Jori Moon Other Interventions: Discharge Summary Assessment (RN) Last Done: 10/24/23 07:20
== END 2023-10-24 10:36 | disposition home or self-care (01) | DRG 467 ==
LOC: ASU 05:05 → 3E 09:40
DX: Z87.891 Personal history of nicotine dependence; Z86.73 Personal history of transient ischemic attack (TIA), and cerebral infarction without residual deficits; Z88.8 Allergy status to other drugs, medicaments and biological substances; J84.10 Pulmonary fibrosis, unspecified; Z79.82 Long term (current) use of aspirin; T84.013A Broken internal left knee prosthesis, initial encounter; Z77.098 Contact with and (suspected) exposure to other hazardous, chiefly nonmedicinal, chemicals; T84.023A Instability of internal left knee prosthesis, initial encounter; Y79.2 Prosthetic and other implants, materials and accessory orthopedic devices associated with adverse incidents; M61.59 Other ossification of muscle, multiple sites; Z88.5 Allergy status to narcotic agent; I10 Essential (primary) hypertension; E78.00 Pure hypercholesterolemia, unspecified; Z88.6 Allergy status to analgesic agent; Z79.899 Other long term (current) drug therapy; D62 Acute posthemorrhagic anemia; R20.0 Anesthesia of skin; Z98.1 Arthrodesis status; K21.9 Gastro-esophageal reflux disease without esophagitis; T84.063A Wear of articular bearing surface of internal prosthetic left knee joint, initial encounter